=== PATIENT | male | born 1990 | race Caucasian/White ===

== ENCOUNTER 2017-01-16 22:48 | Inpatient (IN) | payer OTHER ==
[~2017-01-16] VITALS: Ht 147.3 cm; Wt 31.2 kg
[~2017-01-16 22:48] MED LIST: ALBU2.5V3 NEB; ALBU2.5V36 NEB; ASC500 GTB; FER325 PO; LAMO150T15 GTB; LANS30CA47 PO; NEOM28OI TOP; PHE30 PEG; PHEN60TA9 GTB; SAN30GM TOP; TOPI-44 GTB; TOPI25TA38 PEG; ZINC220C10 GTB
[2017-01-16 23:30] VITALS: BP 110/60; PULSE 67; RESP 19
[2017-01-17] MEDS ORDERED: ALBU2.5V3 NEB (00:20)
[2017-01-17] MEDS ORDERED: ACID1TAB14 G-TUBE (00:29)
[2017-01-17] MEDS ORDERED: LAMO100T83 GTB (00:29)
[2017-01-17] MEDS ORDERED: METO10TA96 GTB (00:29)
[2017-01-17] MEDS ORDERED: METOCLOPRAMIDE 10 MG TAB GTB PRN (00:30)
[2017-01-17] MEDS ORDERED: ALBUTEROL 0.083% (NEB) 2.5 MG/3 ML AMP NEB SCH (01:00)
[2017-01-17] MEDS: CEFTRIAXONE 1 GM/50 ML (PMX) 50 ML IVPB SCH (01:33)
[2017-01-17 01:54] VITALS: Ht 147.3 cm; Wt 31.2 kg
[2017-01-17 05:05] LABS: ADD SCAN DIFF NO
[2017-01-17 05:12] LABS: BASOPHIL # 0.1 10^3/ul (0.0-0.1); BASOPHILS % 1.2 % (0.0-2.0); EOSINOPHILS # 0.7 10^3/ul (0.0-0.5); EOSINOPHILS % 10.3 % (0.0-7.0); HEMATOCRIT 30.3 % (42.0-52.0); HEMOGLOBIN 9.4 g/dl (14.0-18.0); LYMPHOCYTES # 1.8 10^3/ul (0.8-2.9); LYMPHOCYTES % 25.6 % (15.0-51.0); MEAN CORPUSCULAR HEMOGLOBIN 28.3 pg (29.0-33.0); MEAN CORPUSCULAR VOLUME 91.3 fl (82.0-101.0); MEAN PLATELET VOLUME 9.6 fl (7.4-10.4); MONOCYTE # 0.8 10^3/ul (0.3-0.9); MONOCYTES % 11.4 % (0.0-11.0); NEUTROPHIL # 3.6 10^3/ul (1.6-7.5); NEUTROPHILS % 51.4 % (39.0-77.0); PLATELET COUNT 425 10^3/UL (140-415); RED BLOOD COUNT 3.32 10^6/ul (4.70-6.10); RED CELL DISTRIBUTION WIDTH 14.6 % (11.5-14.5); WHITE BLOOD COUNT 6.9 10^3/ul (4.8-10.8)
[2017-01-17 05:34] LABS: CALCIUM 8.8 mg/dl (8.4-10.2); CREATININE 0.31 mg/dl (0.61-1.24); POTASSIUM 3.9 mmol/L (3.5-5.1)
[2017-01-17] MEDS: LANSOPRAZOLE 30 MG CAP GTB SCH (05:36)
[2017-01-17] MEDS ORDERED: ALBUTEROL 0.083% (NEB) 2.5 MG/3 ML AMP NEB PRN (06:00)
[2017-01-17] MEDS ORDERED: LANSOPRAZOLE 30 MG CAP GTB SCH (06:00)
[2017-01-17 08:29] VITALS: BP 86/58; RESP 20
[2017-01-17] MEDS ORDERED: TOPIRAMATE 25 MG TAB GTB SCH (09:00)
[2017-01-17] MEDS ORDERED: FERROUS SULFATE (EC) 325 MG TAB PO SCH (09:00)
[2017-01-17] MEDS ORDERED: PHENOBARBITAL 97.2 MG GTB SCH (09:00)
[2017-01-17] MEDS: LAMOTRIGINE 100 MG TAB GTB SCH ×2 (09:46→21:01)
[2017-01-17] MEDS: ASCORBIC ACID 500 MG TAB GTB SCH (09:46)
[2017-01-17] MEDS: LAMOTRIGINE 25 MG TAB GTB SCH ×2 (09:46→21:01)
[2017-01-17] MEDS: TOPIRAMATE 25 MG TAB GTB SCH ×2 (09:47→22:22)
[2017-01-17] MEDS: PHENOBARBITAL 32.4 MG TAB PEG SCH ×2 (09:47→21:04)
[2017-01-17] MEDS: FERROUS SULFATE 60 MG/ML 5ML CUP GTB SCH ×2 (09:48→21:01)
[2017-01-17] MEDS: ZINC SULFATE 220 MG CAP GTB SCH (09:48)
[2017-01-17] MEDS: LACTOBACILLUS CHEW TAB PEG SCH (10:00)
--- NOTE | 2017-01-17 11:00 | HP ---
DATE OF ADMISSION: 01/16/2017 HISTORY OF PRESENT ILLNESS: Bro Escobedo is a 26-year-old male with mental retardation, who hims elf is unable to give any history, transferred from the transferring hospital. The patient noted to have multiple decubiti and was transferred here for wound care, antibiotics. The patient himself i s unable to give any detailed history, please review the old chart for detailed history. The patien t's laboratory data was reviewed. PAST MEDICAL HISTORY: Mental retardation, G-tube placement. The patient has history of seizure dis order, anemia, dyspepsia, malnutrition, multiple decubiti, epilepsy, pneumonia, asthma, cerebral pal sy, and history of debridement of the wound in the past. ALLERGIES: CANNOT BE OBTAINED. FAMILY HISTORY: Cannot be obtained. SOCIAL HISTORY: Cannot be obtained. MEDICATION HISTORY: The patient is on: 1. Albuterol. 2. Ascorbic acid. 3. Santyl. 4. Iron sulfate. 5. Lamictal. 6. Prevacid. 7. Reglan. 8. Neomycin. 9. Phenobarbital. 10. Probiotic. 11. Topamax. REVIEW OF SYSTEMS: Cannot be obtained. PHYSICAL EXAMINATION: GENERAL: The patient is awake, alert, not in any distress. VITAL SIGNS: Stable with pulse of 80, blood pressure 108/70. HEENT: Head is atraumatic, normocephalic. Pupils are equal, reactive. NECK: Supple. LUNGS: Clear. CARDIOVASCULAR: S1, S2 normal. ABDOMEN: G-tube in place. Abdomen is soft, nontender. EXTREMITIES: No cyanosis, clubbing, or edema. Contractions noted both upper and lower extremities. SKIN: The patient has multiple decubiti of the elbow and decubitus of the back. LABORATORY DATA: From the transferring hospital, WBC 11.3, hematocrit 31.6. The patient's platelet count is not available at this point. The patient's urinalysis: Yellow, cloudy, leukocyte esteras e negative, nitrite negative. Sodium 141, potassium 3.8, BUN 14, glucose 86, CO2 of 24, albumin 3.5 . IMPRESSION: The patient has: 1. Decubitus ulcer. 2. Sepsis. 3. G-tube placement. 4. Seizure disorder. 5. Anemia. 6. Cerebral palsy. 7. Incomplete database. PLAN: Continue home medications, wound care, antibiotics, G-tube feeding. The patient will have in fectious disease and surgical consultations. The patient's laboratory data will be monitored. Dictated By: WILIAM HERNANDEZ/CHRIS Conf#: [id number] DID#: [id number]
[2017-01-17] MEDS: NEOMYC/POLYMYX/BACIT 30 GM OINT TOP SCH ×2 (11:28→21:02)
[2017-01-17] MEDS: COLLAGENASE 30 GM TUBE TOP SCH (11:28)
--- NOTE | 2017-01-17 15:34 | CONS ---
DATE OF ADMISSION: 01/16/2017 DATE OF CONSULTATION: 01/17/2017 CONSULT TYPE: Surgical. REFERRING PHYSICIAN: Rey Amato MD CHIEF COMPLAINT: 1. Multiple decubitus ulcerations. 2. Anemia. 3. Cerebral palsy. HISTORY OF PRESENT ILLNESS: Bro Escobedo is a 26-year-old cerebral palsy patient with multiple m edical comorbidities and decubitus ulcerations at various stages. He was transferred from outside [facility] for further care and treatment secondary to insurance capitation. The patient is unable to give any information, it is all obtained from chart and staff. There are no reported fevers or chil ls. There is no cough or seizures. No blood per mouth or rectum. No vomiting. No bloating. No r ashes. His blood work showed normal chemistry. CBC, however, has anemia and thrombocytosis, but normal whit e blood cell count. PAST MEDICAL HISTORY: 1. Cerebral palsy. 2. Mental retardation. 3. Seizure and epilepsy history. 4. Chronic obstructive pulmonary disease. 5. Asthma. 6. Urinary incontinence. 7. Multiple decubitus ulcerations. 8. Anemia. 9. Thrombocytosis. 10. Dyspepsia. 11. Malnutrition. 12. Pneumonia history. PAST SURGICAL HISTORY: 1. PEG. 2. Debridements. MEDICATION: Noted. ALLERGIES: NONE NOTED. SOCIAL HISTORY: No current alcohol, drugs or tobacco. FAMILY HISTORY: Noncontributory. REVIEW OF SYSTEMS: A 12-point review of system per chart and staff negative unless addressed in the HPI. PHYSICAL EXAMINATION: VITAL SIGNS: Temperature 97.4, pulse 92, blood pressure 86/58, satting 97%. GENERAL: Noncommunicative, in no acute distress. HEENT: Pupils equal, reactive. No scleral icterus. Mucous membranes are moist. NECK: Baseline rigidity, no JVD. PULMONARY: Respiratory effort. No wheezing. HEART: S1, S2 present. ABDOMEN: Soft. PEG in place. EXTREMITIES: Contracted. VASCULAR: Capillary refill is 2 seconds. NEUROLOGIC: Does not follow commands. SKIN: No rashes. No jaundice. Multiple decubitus ulcerations of the right and left ischium, left elbow and sacrum at varying degrees. LYMPHATICS: No inguinal or cervical lymphadenopathy. LABORATORY AND RADIOGRAPHIC: As per chart and HPI. ASSESSMENT AND PLAN: Bro Escobedo is a 26-year-old male with multiple comorbidities. 1. Multiple decubitus ulcerations at varying stages continue offloading, nutritional optimization, vitamin C, local care, short term zinc and debridement as needed. 2. Hypotension of unknown etiology. Continue judicious fluid management, treatment of wounds and r ule out sources of infection. 3. Anemia without evidence of acute blood loss. Continue monitoring. 4. Thrombocytosis secondary to inflammatory process of his wounds, rule out other sources. Continu e monitoring. 5. Cerebral palsy, seizures, mental retardation continue medical optimization. 6. Dysphagia, on tube feeds. Thank you very much for consulting me in this patient's care. Dictated By: JASON LIND/CHRIS Conf#: [id number] DID#: [id number]
[2017-01-17 20:38] VITALS: BP 96/55; RESP 16
[2017-01-18] MEDS: CEFTRIAXONE 1 GM/50 ML (PMX) 50 ML IVPB SCH (00:12)
[2017-01-18] MEDS: LANSOPRAZOLE 30 MG CAP GTB SCH (05:41)
[2017-01-18 08:26] VITALS: BP 98/72; RESP 16
[2017-01-18] MEDS: LACTOBACILLUS CHEW TAB PEG SCH (09:10)
[2017-01-18] MEDS: ENOXAPARIN 30 MG/0.3 ML SYG SC SCH (09:10)
[2017-01-18] MEDS: ASCORBIC ACID 500 MG TAB GTB SCH (09:10)
[2017-01-18] MEDS: ZINC SULFATE 220 MG CAP GTB SCH (09:10)
[2017-01-18] MEDS: TOPIRAMATE 25 MG TAB GTB SCH ×2 (09:10→21:47)
[2017-01-18] MEDS: LAMOTRIGINE 25 MG TAB GTB SCH ×2 (09:11→21:47)
[2017-01-18] MEDS: FERROUS SULFATE 60 MG/ML 5ML CUP GTB SCH ×2 (09:11→21:46)
[2017-01-18] MEDS: LAMOTRIGINE 100 MG TAB GTB SCH ×2 (09:16→21:47)
[2017-01-18] MEDS: PHENOBARBITAL 32.4 MG TAB PEG SCH ×2 (09:16→21:47)
[2017-01-18] MEDS: COLLAGENASE 30 GM TUBE TOP SCH (09:23)
[2017-01-18] MEDS: NEOMYC/POLYMYX/BACIT 30 GM OINT TOP SCH ×2 (09:23→21:48)
[2017-01-18] MEDS ORDERED: VANCOMYCIN IV PER PHARMACY XX SCH (14:30)
--- NOTE | 2017-01-18 14:51 | PN ---
DATE: 01/18/2017 SUBJECTIVE: No acute changes. The patient is lying comfortably in bed. He is not communicative, b ut tracking with eyes. No fevers. No labs this morning. MICROBIOLOGY: Wound culture of the sacrum preliminary growing Staphylococcus aureus. ANTIMICROBIALS: The patient is on IV Rocephin. ALLERGIES: NONE TO ANTIBIOTICS. PHYSICAL EXAMINATION: GENERAL: This is a chronically ill-appearing, 26-year-old man with a history of cerebral palsy and mental retardation, who is lying comfortably in bed. HEENT: Head atraumatic, normocephalic. Sclerae anicteric. Buccal mucosa dry. NECK: Supple. CHEST: Rise symmetrical. Breath sounds diminished. HEART: S1, S2. ABDOMEN: Soft. Bowel sounds hyperactive. EXTREMITIES: Contractured skin with multiple decubiti. ASSESSMENT: 1. Multiple decubiti at various stages with wound culture of the sacrum growing Staphylococcus rachana us preliminary. 2. History of cerebral palsy and mental retardation. 3. Cachexia. 4. Anemia. 5. Dysphagia. PLAN: We are going to start IV vancomycin. Continue Rocephin. Await for wound cultures. Swab john es for MRSA. Follow surgical recommendations. Dictated By: MANUEL PARRA ELECTRICAL PRODUCTS ENGINEER for OTIS DOLL/NTS Conf#: [id number] DID#: [id number]
[2017-01-18] MEDS: VANCOMYCIN 500MG/NS (PMX) 100 ML IVPB SCH ×2 (16:57→23:58)
--- NOTE | 2017-01-18 17:15 | CONS ---
DATE OF ADMISSION: 01/16/2017 DATE OF CONSULTATION: 01/17/2017 TYPE OF CONSULTATION: Infectious Disease. REASON FOR CONSULTATION: Antibiotic management. HISTORY OF PRESENT ILLNESS: Bro Escobedo is a 26-year-old male with mental retardation, who was transferred to this hospital with multiple decubiti and for management of his wounds. His past prob lems include: 1. Mental retardation. 2. G-tube placement. 3. Seizure disorders. 4. Anemia. 5. Dyspepsia. 6. Malnutrition. 7. Multiple decubiti. 8. Epilepsy. 9. Pneumonia. 10. Asthma. 11. Cerebral palsy. 12. History of debridement of the wound in the past. Acutely, patient has a white count 11.3 on admission, hematocrit 31.6. His hemoglobin and hematocri t was 9.4 and 30.3. His BUN and creatinine was 10/0.31. His wound is growing Staphylococcus aureus . He has no methicillin-resistant Staphylococcus in his nares. Patient was seen in consultation by Dr. Ryder. Dr. Ryder notes the patient has developed multiple problems including cerebral pals y, mental retardation, seizures, epilepsy, so on and so forth. He has a PEG and multiple debridemen ts. PAST MEDICAL HISTORY: Operations as outlined. FAMILY HISTORY: Noncontributory. SOCIAL HISTORY: Does not smoke, drink or abuse drugs. ALLERGIES: NONE TO PENICILLIN, SULFA OR FOODS. MEDICATIONS: Per chart. REVIEW OF SYSTEMS: As per HPI. PHYSICAL EXAMINATION: GENERAL: The patient is a chronically ill-appearing male with cerebral palsy who is awake, noncommu nicative, in no acute distress. VITAL SIGNS: Stable. He is afebrile. SKIN: Without generalized rash. HEENT: Within normal limits. NECK: Supple. LYMPH NODES: None palpable. CHEST: Decreased breath sounds at the bases. HEART: Without murmur or gallop. ABDOMEN: Soft, nontender without organosplenomegaly or masses. G-tube in place. EXTREMITIES: Without cyanosis, clubbing or edema. RECTAL AND GENITAL: Deferred. NEUROLOGICAL: No focal neurological abnormalities. He has multiple decubitus ulcers on the right a nd left ischium and left elbow and sacrum at varying degrees. IMPRESSION AND PLAN: The patient has multiple comorbidities. He needs continued offloading nutriti onal optimization. He needs debridement . He is on vancomycin and a number of different topic al agents. He is also on ceftriaxone. We will continue him on this regimen. He is growing Staphyl ococcus aureus from his wounds. Continue current therapy. I will dictate my findings to Dr. Amato and to Dr. Yves Ryder. Dictated By: OTIS MENA MD, JD/CHRIS Conf#: [id number] DID#: [id number]
--- NOTE | 2017-01-18 17:29 | PN ---
Date/Time of Note Date/Time of Note DATE: 01/18/17 TIME: 17:28 Assessment/Plan VTE Prophylaxis VTE Prophylaxis Intervention: other Lines/Catheters IV C[facility] Type (from [facility] Saline Lock Assessment/Plan Chief Complaint/Hosp Course IMPRESSION: The patient has: 1. Decubitus ulcer. 2. Sepsis. 3. G-tube placement. 4. Seizure disorder. 5. Anemia. 6. Cerebral palsy. 7. Incomplete database. plan antibiotic wound care Problems: Subjective 24 Hr Interval Summary Cardiovascular: no complaints Gastrointestinal: no complaints Exam/Review of Systems Vital Signs Vitals Vital Signs Date Time Temp Pulse Resp B/P Pulse Ox O2 Delivery O2 Flow Rate FiO2 01/18/17 08:26 97.0 89 16 98/72 97 01/16/17 23:30 Room Air Intake and Output 01/17/17 01/17/17 01/18/17 15:00 23:00 07:00 Intake Total 910 ml Output Total 1400 ml Balance -490 ml Exam Respiratory: clear to auscultation Cardiovascular: regular rate and rhythm Gastrointestinal: bowel sounds (+), other (peg+), soft Musculoskeletal: nl extremities to inspection Results Result Diagram: 01/17/17 0452 01/17/17 0452 Medications Medications Current Medications Ascorbic Acid (Vitamin C) 1,000 mg DAILY GTB Last administered on 01/18/17 09: 10; Admin Dose 1,000 MG; Start 01/17/17 at 09:00 Collagenase (Santyl) 1 applic DAILY TOP Last administered on 01/18/17 09:23; Admin Dose 1 APPLIC; Start 01/17/17 at 09:00 Lactobacillus Acidoph/Bulgaricus (Floranex) 1 tab DAILY PEG Last administered on 01/18/17 09:10; Admin Dose 1 TAB; Start 01/17/17 at 09:00 Lamotrigine (Lamictal) 25 mg BID GTB Last administered on 01/18/17 09:11; Admin Dose 25 MG; Start 01/17/17 at 09:00 Lamotrigine (Lamictal) 150 mg BID GTB Last administered on 01/18/17 09:16; Admin Dose 150 MG; Start 01/17/17 at 09:00 Metoclopramide HCl (Reglan) 10 mg Q8 PRN GTB NAUSEA AND/OR VOMITING; Start 09/23 at 00:30 Neomycin/ Polymyxin/ Bacitracin (Neosporin Topical Oint) 1 applic BID TOP Last administered on 01/18/17 09:23; Admin Dose 1 APPLIC; Start 01/17/17 at 09:00 Phenobarbital (Luminal) 97.2 mg BID PEG Last administered on 01/18/17 09:16; Admin Dose 97.2 MG; Start 01/17/17 at 09:00 Zinc Sulfate (Zinc Sulfate) 220 mg DAILY GTB Last administered on 01/18/17 09: 10; Admin Dose 220 MG; Start 01/17/17 at 09:00 Lansoprazole (Prevacid) 30 mg DAILY@06 GTB Last administered on 01/18/17 05:41 ; Admin Dose 30 MG; Start 01/17/17 at 06:00 Topiramate (Topamax) 75 mg BID GTB Last administered on 01/18/17 09:10; Admin Dose 75 MG; Start 01/17/17 at 09:00 Ferrous Sulfate 300 mg 300 mg BID GTB Last administered on 01/18/17 09:11; Admin Dose 300 MG; Start 01/17/17 at 09:00 Ceftriaxone Sodium (Rocephin) 50 ml @ 100 mls/hr Q24H IVPB Last administered on 01/18/17 00:12; Admin Dose 100 MLS/HR; Start 01/17/17 at 01:00 Acetaminophen (Tylenol Liquid) 650 mg Q6H PRN GTB PAIN AND OR ELEVATED TEMP; Start 01/17/17 at 01:00 Enoxaparin Sodium 30 mg 30 mg DAILY SC Last administered on 01/18/17 09:10; Admin Dose 30 MG; Start 01/18/17 at 09:00 Vancomycin HCl (Vancocin) 100 ml @ 100 mls/hr Q8H IVPB Last administered on 16:57; Admin Dose 100 MLS/HR; Start 01/18/17 at 16:00 WILIAM VAZQUEZ MD Jan 18, 2017 17:29
[2017-01-18 19:58] VITALS: BP 89/52; RESP 18
--- NOTE | 2017-01-18 23:40 | PN ---
Date/Time of Note Date/Time of Note DATE: 01/18/17 TIME: 23:38 Assessment/Plan Lines/Catheters IV Catheter Type (from [facility]): Saline Lock Assessment/Plan Chief Complaint/Hosp Course 1. Multiple decubitus ulcerations at varying stages continue offloading, nutritional optimization, vitamin C, local care, short term zinc and debridement as needed. 2. Hypotension of unknown etiology. Continue judicious fluid management, treatment of wounds and rule out sources of infection. 3. Anemia without evidence of acute blood loss. Continue monitoring. 4. Thrombocytosis secondary to inflammatory process of his wounds, rule out other sources. Continue monitoring. 5. Cerebral palsy, seizures, mental retardation continue medical optimization. 6. Dysphagia, on tube feeds. Thank you Problems: Subjective 24 Hr Interval Summary No fever, chills, vomiting, bloating, jt swelling, rash, cough, sz. Bowel function. No pyuria. Exam/Review of Systems Vital Signs Vitals Vital Signs Date Time Temp Pulse Resp B/P Pulse Ox O2 Delivery O2 Flow Rate FiO2 01/18/17 19:58 97.7 57 18 89/52 98 01/16/17 23:30 Room Air Intake and Output 01/17/17 01/17/17 01/18/17 15:00 23:00 07:00 Intake Total 910 ml Output Total 1400 ml Balance -490 ml Exam Free Text/Dictation GENERAL: Noncommunicative, in no acute distress. HEENT: Pupils equal, reactive. No scleral icterus. Mucous membranes are moist. NECK: Baseline rigidity, no JVD. PULMONARY: Respiratory effort. No wheezing. HEART: S1, S2 present. ABDOMEN: Soft. PEG in place. EXTREMITIES: Contracted. VASCULAR: Capillary refill is 2 seconds. NEUROLOGIC: Does not follow commands. SKIN: No rashes. No jaundice. Multiple decubitus ulcerations of the right and left ischium, left elbow and sacrum at varying degrees. LYMPHATICS: No inguinal or cervical lymphadenopathy. Results Result Diagram: 01/17/17 0452 01/17/17 0452 JASON BENNETT MD Jan 18, 2017 23:39
[2017-01-19] MEDS: CEFTRIAXONE 1 GM/50 ML (PMX) 50 ML IVPB SCH (01:17)
[2017-01-19] MEDS: LANSOPRAZOLE 30 MG CAP GTB SCH (05:00)
[2017-01-19 05:54] LABS: CREATININE 0.43 mg/dl (0.61-1.24)
[2017-01-19 07:30] VITALS: BP 89/55; RESP 18
[2017-01-19 07:40] VITALS: BP 90/51; PULSE 87
[2017-01-19] MEDS: VANCOMYCIN 500MG/NS (PMX) 100 ML IVPB SCH ×2 (08:17→16:44)
[2017-01-19] MEDS: FERROUS SULFATE 60 MG/ML 5ML CUP GTB SCH ×2 (08:18→20:15)
[2017-01-19] MEDS: TOPIRAMATE 25 MG TAB GTB SCH ×2 (08:18→20:16)
[2017-01-19] MEDS: ZINC SULFATE 220 MG CAP GTB SCH (08:18)
[2017-01-19] MEDS: PHENOBARBITAL 32.4 MG TAB PEG SCH ×2 (08:18→20:16)
[2017-01-19] MEDS: ASCORBIC ACID 500 MG TAB GTB SCH (08:18)
[2017-01-19] MEDS: LAMOTRIGINE 25 MG TAB GTB SCH ×2 (08:18→20:15)
[2017-01-19] MEDS: LAMOTRIGINE 100 MG TAB GTB SCH ×2 (08:19→20:15)
[2017-01-19] MEDS: LACTOBACILLUS CHEW TAB PEG SCH (08:19)
[2017-01-19] MEDS: COLLAGENASE 30 GM TUBE TOP SCH (08:21)
[2017-01-19] MEDS: ENOXAPARIN 30 MG/0.3 ML SYG SC SCH (08:21)
[2017-01-19] MEDS: NEOMYC/POLYMYX/BACIT 30 GM OINT TOP SCH ×2 (08:21→20:17)
--- NOTE | 2017-01-19 15:03 | PN ---
Date/Time of Note Date/Time of Note DATE: 01/19/17 TIME: 15:01 Assessment/Plan VTE Prophylaxis VTE Prophylaxis Intervention: other Lines/Catheters IV Catheter Type (from [facility]): Saline Lock Assessment/Plan Chief Complaint/Hosp Course IMPRESSION: The patient has: 1. Decubitus ulcer. 2. Sepsis. 3. G-tube placement. 4. Seizure disorder. 5. Anemia. 6. Cerebral palsy. 7. Incomplete database. 8 mssa plan antibiotic wound care per id Problems: Subjective 24 Hr Interval Summary Cardiovascular: no complaints Gastrointestinal: no complaints Exam/Review of Systems Vital Signs Vitals Vital Signs Date Time Temp Pulse Resp B/P Pulse Ox O2 Delivery O2 Flow Rate FiO2 01/19/17 07:40 87 90/51 01/19/17 07:30 97.1 18 98 01/16/17 23:30 Room Air Intake and Output 01/18/17 01/18/17 01/19/17 15:00 23:00 07:00 Intake Total 800 ml 724 ml Output Total 1000 ml Balance -200 ml 724 ml Exam Cardiovascular: regular rate and rhythm Gastrointestinal: soft Genitourinary - Male: nl penis Musculoskeletal: nl extremities to inspection Extremities: normal pulses Results Result Diagram: 01/17/17 0452 01/19/17 0515 Results 24 hrs Laboratory Tests Test 01/19/17 05:15 Blood Urea Nitrogen 14 Creatinine 0.43 L Medications Medications Current Medications Ascorbic Acid (Vitamin C) 1,000 mg DAILY GTB Last administered on 01/19/17 08: 18; Admin Dose 1,000 MG; Start 01/17/17 at 09:00 Collagenase (Santyl) 1 applic DAILY TOP Last administered on 01/19/17 08:21; Admin Dose 1 APPLIC; Start 01/17/17 at 09:00 Lactobacillus Acidoph/Bulgaricus (Floranex) 1 tab DAILY PEG Last administered on 01/19/17 08:19; Admin Dose 1 TAB; Start 01/17/17 at 09:00 Lamotrigine (Lamictal) 25 mg BID GTB Last administered on 01/19/17 08:18; Admin Dose 25 MG; Start 01/17/17 at 09:00 Lamotrigine (Lamictal) 150 mg BID GTB Last administered on 01/19/17 08:19; Admin Dose 150 MG; Start 01/17/17 at 09:00 Metoclopramide HCl (Reglan) 10 mg Q8 PRN GTB NAUSEA AND/OR VOMITING; Start 09/23 at 00:30 Neomycin/ Polymyxin/ Bacitracin (Neosporin Topical Oint) 1 applic BID TOP Last administered on 01/19/17 08:21; Admin Dose 1 APPLIC; Start 01/17/17 at 09:00 Phenobarbital (Luminal) 97.2 mg BID PEG Last administered on 01/19/17 08:18; Admin Dose 97.2 MG; Start 01/17/17 at 09:00 Zinc Sulfate (Zinc Sulfate) 220 mg DAILY GTB Last administered on 01/19/17 08: 18; Admin Dose 220 MG; Start 01/17/17 at 09:00 Lansoprazole (Prevacid) 30 mg DAILY@06 GTB Last administered on 01/19/17 05:00 ; Admin Dose 30 MG; Start 01/17/17 at 06:00 Topiramate (Topamax) 75 mg BID GTB Last administered on 01/19/17 08:18; Admin Dose 75 MG; Start 01/17/17 at 09:00 Ferrous Sulfate 300 mg 300 mg BID GTB Last administered on 01/19/17 08:18; Admin Dose 300 MG; Start 01/17/17 at 09:00 Ceftriaxone Sodium (Rocephin) 50 ml @ 100 mls/hr Q24H IVPB Last administered on 01/19/17 01:17; Admin Dose 100 MLS/HR; Start 01/17/17 at 01:00 Acetaminophen (Tylenol Liquid) 650 mg Q6H PRN GTB PAIN AND OR ELEVATED TEMP; Start 01/17/17 at 01:00 Enoxaparin Sodium 30 mg 30 mg DAILY SC Last administered on 01/19/17 08:21; Admin Dose 30 MG; Start 01/18/17 at 09:00 Vancomycin HCl (Vancocin) 100 ml @ 100 mls/hr Q8H IVPB Last administered on 08:17; Admin Dose 100 MLS/HR; Start 01/18/17 at 16:00 Miscellaneous Information (*Rx Drug Level Order Reminder*) 1 ONCE ONCE XX ; Start 01/19/17 at 15:00; Stop 01/19/17 at 15:01 WILIAM VAZQUEZ MD Jan 19, 2017 15:03
--- NOTE | 2017-01-19 16:06 | PN ---
DATE: 01/19/2017 SUBJECTIVE: No acute changes. The patient is lying comfortably in bed. No fevers. No labs. MICROBIOLOGY: Wound culture growing oxacillin-sensitive Staphylococcus aureus susceptible to Levaqu in, clindamycin, Ancef, Cipro. INDWELLINGS: PEG and trach. PHYSICAL EXAMINATION: GENERAL: Chronically ill-appearing, young debilitated man, who is lying comfortably in bed. HEENT: Head atraumatic, normocephalic. Sclerae anicteric. Buccal mucosa dry. NECK: Supple. CHEST: Rise symmetrical. Breath sounds diminished to bases. HEART: S1, S2. ABDOMEN: Soft, bowel sounds present. EXTREMITIES: Without cyanosis. Contractures. SKIN: With multiple decubiti. ASSESSMENT: 1. Oxacillin-sensitive Staphylococcus aureus sacral wound. 2. Cachexia. 3. Anemia. 4. Dysphagia. 5. History of cerebral palsy and mental retardation. PLAN: We are going to change antibiotics to oral ciprofloxacin. Continue local wound care. Follow surgical recommendations. Dictated By: MANUEL PARRA SENIOR FACILITIES MANAGER for OTIS DOLL/CHRIS Conf#: [id number] DID#: [id number]
[2017-01-19] MEDS: CIPROFLOXACIN 500 MG TAB PO SCH (17:02)
[2017-01-19 20:10] VITALS: BP 96/54; RESP 18
--- NOTE | 2017-01-19 22:32 | PN ---
Date/Time of Note Date/Time of Note DATE: 01/19/17 TIME: 22:29 Assessment/Plan Lines/Catheters IV Catheter Type (from [facility]): Saline Lock Irvin in Place (from [facility]): No Assessment/Plan Chief Complaint/Hosp Course 1. Multiple decubitus ulcerations at varying stages continue offloading, nutritional optimization, vitamin C, local care, short term zinc and debridement as needed. 2. Hypotension of unknown etiology. Continue judicious fluid management, treatment of wounds and rule out sources of infection. 3. Anemia without evidence of acute blood loss. Continue monitoring. 4. Thrombocytosis secondary to inflammatory process of his wounds, rule out other sources. Continue monitoring. 5. Cerebral palsy, seizures, mental retardation continue medical optimization. 6. Dysphagia, on tube feeds. Thank you Problems: Subjective 24 Hr Interval Summary No fever, chills, vomiting, bloating, jt swelling, rash, cough, sz. Bowel function. No pyuria. Exam/Review of Systems Vital Signs Vitals Vital Signs Date Time Temp Pulse Resp B/P Pulse Ox O2 Delivery O2 Flow Rate FiO2 01/19/17 20:10 97.7 102 18 96/54 97 01/16/17 23:30 Room Air Intake and Output 01/18/17 01/18/17 01/19/17 15:00 23:00 07:00 Intake Total 800 ml 724 ml Output Total 1000 ml Balance -200 ml 724 ml Exam Free Text/Dictation GENERAL: Noncommunicative, in no acute distress. HEENT: Pupils equal, reactive. No scleral icterus. Mucous membranes are moist. NECK: Baseline rigidity, no JVD. PULMONARY: Respiratory effort. No wheezing. HEART: S1, S2 present. ABDOMEN: Soft. PEG in place. EXTREMITIES: Contracted. VASCULAR: Capillary refill is 2 seconds. NEUROLOGIC: Does not follow commands. SKIN: No rashes. No jaundice. Multiple decubitus ulcerations of the right and left ischium, left elbow and sacrum at varying degrees. LYMPHATICS: No inguinal or cervical lymphadenopathy. Results Result Diagram: 01/17/17 0452 01/19/17 0515 JASON BENNETT MD Jan 19, 2017 22:32
[2017-01-20] MEDS: CIPROFLOXACIN 500 MG TAB PO SCH ×2 (05:44→17:01)
[2017-01-20] MEDS: LANSOPRAZOLE 30 MG CAP GTB SCH (05:44)
[2017-01-20 07:30] VITALS: BP 97/55; RESP 18
[2017-01-20] MEDS: LAMOTRIGINE 25 MG TAB GTB SCH ×2 (08:19→20:20)
[2017-01-20] MEDS: FERROUS SULFATE 60 MG/ML 5ML CUP GTB SCH ×2 (08:19→20:19)
[2017-01-20] MEDS: ENOXAPARIN 30 MG/0.3 ML SYG SC SCH (08:20)
[2017-01-20] MEDS: LAMOTRIGINE 100 MG TAB GTB SCH ×2 (08:21→20:20)
[2017-01-20] MEDS: ZINC SULFATE 220 MG CAP GTB SCH (08:21)
[2017-01-20] MEDS: TOPIRAMATE 25 MG TAB GTB SCH ×2 (08:21→20:21)
[2017-01-20] MEDS: LACTOBACILLUS CHEW TAB PEG SCH (08:21)
[2017-01-20] MEDS: PHENOBARBITAL 32.4 MG TAB PEG SCH ×2 (08:21→20:22)
[2017-01-20] MEDS: ASCORBIC ACID 500 MG TAB GTB SCH (08:21)
[2017-01-20] MEDS: NEOMYC/POLYMYX/BACIT 30 GM OINT TOP SCH ×2 (08:22→20:22)
[2017-01-20] MEDS: COLLAGENASE 30 GM TUBE TOP SCH (08:22)
--- NOTE | 2017-01-20 16:27 | PN ---
Date/Time of Note Date/Time of Note DATE: 01/20/17 TIME: 16:27 Assessment/Plan Lines/Catheters IV Catheter Type (from [email or web address] Saline Lock Irvin in Place (from [facility] [[email or web address] No Assessment/Plan Chief Complaint/Hosp Course 1. Multiple decubitus ulcerations at varying stages continue offloading, nutritional optimization, vitamin C, local care, short term zinc and debridement as needed. 2. Hypotension of unknown etiology. Continue judicious fluid management, treatment of wounds and rule out sources of infection. 3. Anemia without evidence of acute blood loss. Continue monitoring. 4. Thrombocytosis secondary to inflammatory process of his wounds, rule out other sources. Continue monitoring. 5. Cerebral palsy, seizures, mental retardation continue medical optimization. 6. Dysphagia, on tube feeds. Thank you Problems: Subjective 24 Hr Interval Summary No fever, chills, vomiting, bloating, jt swelling, rash, cough, sz. Bowel function. No pyuria. Exam/Review of Systems Vital Signs Vitals Vital Signs Date Time Temp Pulse Resp B/P Pulse Ox O2 Delivery O2 Flow Rate FiO2 01/20/17 07:30 98.2 84 18 97/55 98 01/16/17 23:30 Room Air Intake and Output 01/19/17 01/19/17 01/20/17 15:00 23:00 07:00 Intake Total 100 ml 850 ml 850 ml Output Total 800 ml 600 ml Balance 100 ml 50 ml 250 ml Exam Free Text/Dictation GENERAL: Noncommunicative, in no acute distress. HEENT: Pupils equal, reactive. No scleral icterus. Mucous membranes are moist. NECK: Baseline rigidity, no JVD. PULMONARY: Respiratory effort. No wheezing. HEART: S1, S2 present. ABDOMEN: Soft. PEG in place. EXTREMITIES: Contracted. VASCULAR: Capillary refill is 2 seconds. NEUROLOGIC: Does not follow commands. SKIN: No rashes. No jaundice. Multiple decubitus ulcerations of the right and left ischium, left elbow and sacrum at varying degrees. LYMPHATICS: No inguinal or cervical lymphadenopathy. Results Result Diagram: 01/17/17 0452 01/19/17 0515 JASON BENNETT MD Jan 20, 2017 16:27
--- NOTE | 2017-01-20 17:11 | PN ---
Date/Time of Note Date/Time of Note DATE: 01/20/17 TIME: 17:11 Assessment/Plan VTE Prophylaxis VTE Prophylaxis Intervention: other Lines/Catheters [facility] Saline Lock Urinary Cath still in place: No Assessment/Plan Chief Complaint/Hosp Course IMPRESSION: The patient has: 1. Decubitus ulcer. 2. Sepsis. 3. G-tube placement. 4. Seizure disorder. 5. Anemia. 6. Cerebral palsy. 7. Incomplete database. 8 mssa plan antibiotic wound care per id Problems: Subjective 24 Hr Interval Summary Constitutional: no complaints Exam/Review of Systems Vital Signs Vitals Vital Signs Date Time Temp Pulse Resp B/P Pulse Ox O2 Delivery O2 Flow Rate FiO2 01/20/17 07:30 98.2 84 18 97/55 98 01/16/17 23:30 Room Air Intake and Output 01/19/17 01/19/17 01/20/17 15:00 23:00 07:00 Intake Total 100 ml 850 ml 850 ml Output Total 800 ml 600 ml Balance 100 ml 50 ml 250 ml Exam Neck: supple Respiratory: clear to auscultation Cardiovascular: regular rate and rhythm Gastrointestinal: soft Musculoskeletal: nl extremities to inspection Results Result Diagram: 01/17/17 0452 01/19/17 0515 Medications Medications Current Medications Ascorbic Acid (Vitamin C) 1,000 mg DAILY GTB Last administered on 01/20/17 08: 21; Admin Dose 1,000 MG; Start 01/17/17 at 09:00 Collagenase (Santyl) 1 applic DAILY TOP Last administered on 01/20/17 08:22; Admin Dose 1 APPLIC; Start 01/17/17 at 09:00 Lactobacillus Acidoph/Bulgaricus (Floranex) 1 tab DAILY PEG Last administered on 01/20/17 08:21; Admin Dose 1 TAB; Start 01/17/17 at 09:00 Lamotrigine (Lamictal) 25 mg BID GTB Last administered on 01/20/17 08:19; Admin Dose 25 MG; Start 01/17/17 at 09:00 Lamotrigine (Lamictal) 150 mg BID GTB Last administered on 01/20/17 08:21; Admin Dose 150 MG; Start 01/17/17 at 09:00 Metoclopramide HCl (Reglan) 10 mg Q8 PRN GTB NAUSEA AND/OR VOMITING; Start 09/23 at 00:30 Neomycin/ Polymyxin/ Bacitracin (Neosporin Topical Oint) 1 applic BID TOP Last administered on 01/20/17 08:22; Admin Dose 1 APPLIC; Start 01/17/17 at 09:00 Phenobarbital (Luminal) 97.2 mg BID PEG Last administered on 01/20/17 08:21; Admin Dose 97.2 MG; Start 01/17/17 at 09:00 Zinc Sulfate (Zinc Sulfate) 220 mg DAILY GTB Last administered on 01/20/17 08: 21; Admin Dose 220 MG; Start 01/17/17 at 09:00 Lansoprazole (Prevacid) 30 mg DAILY@06 GTB Last administered on 01/20/17 05:44 ; Admin Dose 30 MG; Start 01/17/17 at 06:00 Topiramate (Topamax) 75 mg BID GTB Last administered on 01/20/17 08:21; Admin Dose 75 MG; Start 01/17/17 at 09:00 Ferrous Sulfate (Feosol Liquid Cup) 300 mg BID GTB Last administered on 08:19; Admin Dose 300 MG; Start 01/17/17 at 09:00 Acetaminophen (Tylenol Liquid) 650 mg Q6H PRN GTB PAIN AND OR ELEVATED TEMP; Start 01/17/17 at 01:00 Enoxaparin Sodium (Lovenox) 30 mg DAILY SC Last administered on 01/20/17 08:20 ; Admin Dose 30 MG; Start 01/18/17 at 09:00 Ciprofloxacin (Cipro) 500 mg BID@,18 PO Last administered on 01/20/17 17:01 ; Admin Dose 500 MG; Start 01/19/17 at 18:00 WILIAM VAZQUEZ MD Jan 20, 2017 17:11
[2017-01-20 19:30] VITALS: BP 103/57; RESP 16
[2017-01-20 20:00] VITALS: BP 103/57; PULSE 81; RESP 18
--- NOTE | 2017-01-20 20:29 | CONS ---
Date/Time of Note Date/Time of Note DATE: 01/20/17 TIME: 20:28 Assessment/Plan Assessment/Plan Chief Complaint/Hosp Course SUBJECTIVE: No acute changes. The patient is lying comfortably in bed. No fevers. MICROBIOLOGY: Wound culture growing oxacillin-sensitive Staphylococcus aureus susceptible to Levaquin, clindamycin, Ancef, Cipro. INDWELLINGS: PEG and trach. PHYSICAL EXAMINATION: GENERAL: Chronically ill-appearing, young debilitated man, who is lying comfortably in bed. HEENT: Head atraumatic, normocephalic. Sclerae anicteric. Buccal mucosa dry. NECK: Supple. CHEST: Rise symmetrical. Breath sounds diminished to bases. HEART: S1, S2. ABDOMEN: Soft, bowel sounds present. EXTREMITIES: Without cyanosis. Contractures. SKIN: With multiple decubiti. ASSESSMENT: 1. Oxacillin-sensitive Staphylococcus aureus sacral wound. 2. Cachexia. 3. Anemia. 4. Dysphagia. 5. History of cerebral palsy and mental retardation. PLAN: Stable, continue oral ciprofloxacin. Continue local wound care. Follow surgical recommendations, off load. DW staff Problems: Consultation Date/Type/Reason Admit Date/Time Jan 16, 2017 at 23:35 Initial Consult Date Type of Consultation: ID Exam/Review of Systems Vital Signs Vitals Vital Signs Date Time Temp Pulse Resp B/P Pulse Ox O2 Delivery O2 Flow Rate FiO2 01/20/17 19:30 98.4 81 16 103/57 97 01/16/17 23:30 Room Air Intake and Output 01/19/17 01/19/17 01/20/17 15:00 23:00 07:00 Intake Total 100 ml 850 ml 850 ml Output Total 800 ml 600 ml Balance 100 ml 50 ml 250 ml Results Result Diagram: 01/17/17 0452 01/19/17 0515 Medications Medications Current Medications Ascorbic Acid (Vitamin C) 1,000 mg DAILY GTB Last administered on 01/20/17 08: 21; Admin Dose 1,000 MG; Start 01/17/17 at 09:00 Collagenase (Santyl) 1 applic DAILY TOP Last administered on 01/20/17 08:22; Admin Dose 1 APPLIC; Start 01/17/17 at 09:00 Lactobacillus Acidoph/Bulgaricus (Floranex) 1 tab DAILY PEG Last administered on 01/20/17 08:21; Admin Dose 1 TAB; Start 01/17/17 at 09:00 Lamotrigine (Lamictal) 25 mg BID GTB Last administered on 01/20/17 20:20; Admin Dose 25 MG; Start 01/17/17 at 09:00 Lamotrigine (Lamictal) 150 mg BID GTB Last administered on 01/20/17 20:20; Admin Dose 150 MG; Start 01/17/17 at 09:00 Metoclopramide HCl (Reglan) 10 mg Q8 PRN GTB NAUSEA AND/OR VOMITING; Start 09/23 at 00:30 Neomycin/ Polymyxin/ Bacitracin (Neosporin Topical Oint) 1 applic BID TOP Last administered on 01/20/17 20:22; Admin Dose 1 APPLIC; Start 01/17/17 at 09:00 Phenobarbital (Luminal) 97.2 mg BID PEG Last administered on 01/20/17 20:22; Admin Dose 97.2 MG; Start 01/17/17 at 09:00 Zinc Sulfate (Zinc Sulfate) 220 mg DAILY GTB Last administered on 01/20/17 08: 21; Admin Dose 220 MG; Start 01/17/17 at 09:00 Lansoprazole (Prevacid) 30 mg DAILY@06 GTB Last administered on 01/20/17 05:44 ; Admin Dose 30 MG; Start 01/17/17 at 06:00 Topiramate (Topamax) 75 mg BID GTB Last administered on 01/20/17 20:21; Admin Dose 75 MG; Start 01/17/17 at 09:00 Ferrous Sulfate (Feosol Liquid Cup) 300 mg BID GTB Last administered on 20:19; Admin Dose 300 MG; Start 01/17/17 at 09:00 Acetaminophen (Tylenol Liquid) 650 mg Q6H PRN GTB PAIN AND OR ELEVATED TEMP; Start 01/17/17 at 01:00 Enoxaparin Sodium (Lovenox) 30 mg DAILY SC Last administered on 01/20/17 08:20 ; Admin Dose 30 MG; Start 01/18/17 at 09:00 Ciprofloxacin (Cipro) 500 mg BID@06,18 PO Last administered on 01/20/17 17:01 ; Admin Dose 500 MG; Start 01/19/17 at 18:00 MANUEL PARRA NP Jan 20, 2017 20:29
[2017-01-21] MEDS: LANSOPRAZOLE 30 MG CAP GTB SCH (05:38)
[2017-01-21] MEDS: CIPROFLOXACIN 500 MG TAB PO SCH ×2 (05:39→18:00)
[2017-01-21 07:30] VITALS: BP 90/52; RESP 18
[2017-01-21] MEDS: ENOXAPARIN 30 MG/0.3 ML SYG SC SCH (09:19)
[2017-01-21] MEDS: PHENOBARBITAL 32.4 MG TAB PEG SCH ×2 (09:20→21:51)
[2017-01-21] MEDS: TOPIRAMATE 25 MG TAB GTB SCH ×2 (09:20→21:51)
[2017-01-21] MEDS: ASCORBIC ACID 500 MG TAB GTB SCH (09:20)
[2017-01-21] MEDS: LAMOTRIGINE 25 MG TAB GTB SCH ×2 (09:21→21:51)
[2017-01-21] MEDS: LACTOBACILLUS CHEW TAB PEG SCH (09:21)
[2017-01-21] MEDS: ZINC SULFATE 220 MG CAP GTB SCH (09:21)
[2017-01-21] MEDS: LAMOTRIGINE 100 MG TAB GTB SCH ×2 (09:21→22:09)
[2017-01-21] MEDS: FERROUS SULFATE 60 MG/ML 5ML CUP GTB SCH ×2 (09:21→21:50)
[2017-01-21] MEDS: COLLAGENASE 30 GM TUBE TOP SCH (09:22)
[2017-01-21] MEDS: NEOMYC/POLYMYX/BACIT 30 GM OINT TOP SCH ×2 (09:22→21:53)
--- NOTE | 2017-01-21 14:15 | PN ---
Date/Time of Note Date/Time of Note DATE: 01/21/17 TIME: 14:14 Assessment/Plan VTE Prophylaxis VTE Prophylaxis Intervention: other Lines/Catheters IV C[facility] Type (from [facility] Saline Lock Urinary Cath still in place: No Assessment/Plan Chief Complaint/Hosp Course IMPRESSION: The patient has: 1. Decubitus ulcer. 2. Sepsis. 3. G-tube placement. 4. Seizure disorder. 5. Anemia. 6. Cerebral palsy. 7. Incomplete database. 8 mssa plan antibiotic wound care per id home soon Problems: Subjective 24 Hr Interval Summary Gastrointestinal: no complaints Exam/Review of Systems Vital Signs Vitals Vital Signs Date Time Temp Pulse Resp B/P Pulse Ox O2 Delivery O2 Flow Rate FiO2 01/21/17 07:30 98.5 93 18 90/52 98 01/20/17 20:00 Room Air Intake and Output 01/20/17 01/20/17 01/21/17 15:00 23:00 07:00 Intake Total 750 ml 1500 ml Output Total 500 ml 2200 ml Balance 250 ml -700 ml Exam Respiratory: clear to auscultation Cardiovascular: regular rate and rhythm Gastrointestinal: soft Musculoskeletal: nl extremities to inspection Extremities: normal pulses Results Result Diagram: 01/17/17 0452 01/19/17 0515 Medications Medications Current Medications Ascorbic Acid (Vitamin C) 1,000 mg DAILY GTB Last administered on 01/21/17 09: 20; Admin Dose 1,000 MG; Start 01/17/17 at 09:00 Collagenase (Santyl) 1 applic DAILY TOP Last administered on 01/21/17 09:22; Admin Dose 1 APPLIC; Start 01/17/17 at 09:00 Lactobacillus Acidoph/Bulgaricus (Floranex) 1 tab DAILY PEG Last administered on 01/21/17 09:21; Admin Dose 1 TAB; Start 01/17/17 at 09:00 Lamotrigine (Lamictal) 25 mg BID GTB Last administered on 01/21/17 09:21; Admin Dose 25 MG; Start 01/17/17 at 09:00 Lamotrigine (Lamictal) 150 mg BID GTB Last administered on 01/21/17 09:21; Admin Dose 150 MG; Start 01/17/17 at 09:00 Metoclopramide HCl (Reglan) 10 mg Q8 PRN GTB NAUSEA AND/OR VOMITING; Start 09/23 at 00:30 Neomycin/ Polymyxin/ Bacitracin (Neosporin Topical Oint) 1 applic BID TOP Last administered on 01/21/17 09:22; Admin Dose 1 APPLIC; Start 01/17/17 at 09:00 Phenobarbital (Luminal) 97.2 mg BID PEG Last administered on 01/21/17 09:20; Admin Dose 97.2 MG; Start 01/17/17 at 09:00 Zinc Sulfate (Zinc Sulfate) 220 mg DAILY GTB Last administered on 01/21/17 09: 21; Admin Dose 220 MG; Start 01/17/17 at 09:00 Lansoprazole (Prevacid) 30 mg DAILY@06 GTB Last administered on 01/21/17 05:38 ; Admin Dose 30 MG; Start 01/17/17 at 06:00 Topiramate (Topamax) 75 mg BID GTB Last administered on 01/21/17 09:20; Admin Dose 75 MG; Start 01/17/17 at 09:00 Ferrous Sulfate (Feosol Liquid Cup) 300 mg BID GTB Last administered on 09:21; Admin Dose 300 MG; Start 01/17/17 at 09:00 Acetaminophen (Tylenol Liquid) 650 mg Q6H PRN GTB PAIN AND OR ELEVATED TEMP; Start 01/17/17 at 01:00 Enoxaparin Sodium (Lovenox) 30 mg DAILY SC Last administered on 01/21/17 09:19 ; Admin Dose 30 MG; Start 01/18/17 at 09:00 Ciprofloxacin (Cipro) 500 mg BID@,18 PO Last administered on 01/21/17 05:39 ; Admin Dose 500 MG; Start 01/19/17 at 18:00 WILIAM VAZQUEZ MD Jan 21, 2017 14:15
[2017-01-21 19:29] VITALS: BP 100/55; RESP 16
[2017-01-21 20:00] VITALS: BP 100/55; PULSE 74; RESP 16
--- NOTE | 2017-01-21 20:27 | CONS ---
Date/Time of Note Date/Time of Note DATE: 01/21/17 TIME: 20:26 Assessment/Plan Assessment/Plan Chief Complaint/Hosp Course SUBJECTIVE: No acute changes. The patient is awake, noncommunicative, lying comfortably in bed. No fevers. MICROBIOLOGY: Wound culture growing oxacillin-sensitive Staphylococcus aureus susceptible to Levaquin, clindamycin, Ancef, Cipro. INDWELLINGS: PEG and trach. PHYSICAL EXAMINATION: GENERAL: Chronically ill-appearing, young debilitated man, who is lying comfortably in bed. HEENT: Head atraumatic, normocephalic. Sclerae anicteric. Buccal mucosa dry. NECK: Supple. CHEST: Rise symmetrical. Breath sounds diminished to bases. HEART: S1, S2. ABDOMEN: Soft, bowel sounds present. EXTREMITIES: Without cyanosis. Contractures. SKIN: With multiple decubiti. ASSESSMENT: 1. Oxacillin-sensitive Staphylococcus aureus sacral wound. 2. Cachexia. 3. Anemia. 4. Dysphagia. 5. History of cerebral palsy and mental retardation. PLAN: Stable, continue abx, local wound care. Follow surgical recommendations , off load. DW staff Problems: Consultation Date/Type/Reason Admit Date/Time Jan 16, 2017 at 23:35 Type of Consultation: ID Exam/Review of Systems Vital Signs Vitals Vital Signs Date Time Temp Pulse Resp B/P Pulse Ox O2 Delivery O2 Flow Rate FiO2 01/21/17 07:30 98.5 93 18 90/52 98 01/20/17 20:00 Room Air Intake and Output 01/20/17 01/20/17 01/21/17 15:00 23:00 07:00 Intake Total 750 ml 1500 ml Output Total 500 ml 2200 ml Balance 250 ml -700 ml Results Result Diagram: 01/17/17 0452 01/19/17 0515 Medications Medications Current Medications Ascorbic Acid (Vitamin C) 1,000 mg DAILY GTB Last administered on 01/21/17 09: 20; Admin Dose 1,000 MG; Start 01/17/17 at 09:00 Collagenase (Santyl) 1 applic DAILY TOP Last administered on 01/21/17 09:22; Admin Dose 1 APPLIC; Start 01/17/17 at 09:00 Lactobacillus Acidoph/Bulgaricus (Floranex) 1 tab DAILY PEG Last administered on 01/21/17 09:21; Admin Dose 1 TAB; Start 01/17/17 at 09:00 Lamotrigine (Lamictal) 25 mg BID GTB Last administered on 01/21/17 09:21; Admin Dose 25 MG; Start 01/17/17 at 09:00 Lamotrigine (Lamictal) 150 mg BID GTB Last administered on 01/21/17 09:21; Admin Dose 150 MG; Start 01/17/17 at 09:00 Metoclopramide HCl (Reglan) 10 mg Q8 PRN GTB NAUSEA AND/OR VOMITING; Start 09/23 at 00:30 Neomycin/ Polymyxin/ Bacitracin (Neosporin Topical Oint) 1 applic BID TOP Last administered on 01/21/17 09:22; Admin Dose 1 APPLIC; Start 01/17/17 at 09:00 Phenobarbital (Luminal) 97.2 mg BID PEG Last administered on 01/21/17 09:20; Admin Dose 97.2 MG; Start 01/17/17 at 09:00 Zinc Sulfate (Zinc Sulfate) 220 mg DAILY GTB Last administered on 01/21/17 09: 21; Admin Dose 220 MG; Start 01/17/17 at 09:00 Lansoprazole (Prevacid) 30 mg DAILY@06 GTB Last administered on 01/21/17 05:38 ; Admin Dose 30 MG; Start 01/17/17 at 06:00 Topiramate (Topamax) 75 mg BID GTB Last administered on 01/21/17 09:20; Admin Dose 75 MG; Start 01/17/17 at 09:00 Ferrous Sulfate (Feosol Liquid Cup) 300 mg BID GTB Last administered on 09:21; Admin Dose 300 MG; Start 01/17/17 at 09:00 Acetaminophen (Tylenol Liquid) 650 mg Q6H PRN GTB PAIN AND OR ELEVATED TEMP; Start 01/17/17 at 01:00 Enoxaparin Sodium (Lovenox) 30 mg DAILY SC Last administered on 01/21/17 09:19 ; Admin Dose 30 MG; Start 01/18/17 at 09:00 Ciprofloxacin (Cipro) 500 mg BID@06,18 PO Last administered on 01/21/17 18:00 ; Admin Dose 500 MG; Start 01/19/17 at 18:00 MANUEL PARRA NP Jan 21, 2017 20:27
--- NOTE | 2017-01-21 22:05 | PN ---
Date/Time of Note Date/Time of Note DATE: 01/21/17 TIME: 22:04 Assessment/Plan Lines/Catheters IV Catheter Type (from [facility]): Saline Lock Irvin in Place (from [facility]): No Assessment/Plan Chief Complaint/Hosp Course 1. Multiple decubitus ulcerations at varying stages continue offloading, nutritional optimization, vitamin C, local care, short term zinc and debridement as needed. 2. Hypotension of unknown etiology. Continue judicious fluid management, treatment of wounds and rule out sources of infection. 3. Anemia without evidence of acute blood loss. Continue monitoring. 4. Thrombocytosis secondary to inflammatory process of his wounds, rule out other sources. Continue monitoring. 5. Cerebral palsy, seizures, mental retardation continue medical optimization. 6. Dysphagia, on tube feeds. Thank you Problems: Subjective 24 Hr Interval Summary No fever, chills, vomiting, bloating, jt swelling, rash, cough, sz. Bowel function. No pyuria. Exam/Review of Systems Vital Signs Vitals Vital Signs Date Time Temp Pulse Resp B/P Pulse Ox O2 Delivery O2 Flow Rate FiO2 01/21/17 19:29 98.1 74 16 100/55 97 01/20/17 20:00 Room Air Intake and Output 01/20/17 01/20/17 01/21/17 14:59 22:59 06:59 Intake Total 750 ml 1500 ml Output Total 500 ml 2200 ml Balance 250 ml -700 ml Exam Free Text/Dictation GENERAL: Noncommunicative, in no acute distress. HEENT: Pupils equal, reactive. No scleral icterus. Mucous membranes are moist. NECK: Baseline rigidity, no JVD. PULMONARY: Respiratory effort. No wheezing. HEART: S1, S2 present. ABDOMEN: Soft. PEG in place. EXTREMITIES: Contracted. VASCULAR: Capillary refill is 2 seconds. NEUROLOGIC: Does not follow commands. SKIN: No rashes. No jaundice. Multiple decubitus ulcerations of the right and left ischium, left elbow and sacrum at varying degrees. LYMPHATICS: No inguinal or cervical lymphadenopathy. Results Result Diagram: 01/17/17 0452 01/19/17 0515 JASON BENNETT MD Jan 21, 2017 22:05
[2017-01-22] MEDS: LANSOPRAZOLE 30 MG CAP GTB SCH (05:06)
[2017-01-22] MEDS: CIPROFLOXACIN 500 MG TAB PO SCH ×2 (05:06→17:12)
[2017-01-22 08:07] VITALS: BP 99/58; RESP 20
[2017-01-22] MEDS: FERROUS SULFATE 60 MG/ML 5ML CUP GTB SCH ×2 (09:39→22:14)
[2017-01-22] MEDS: ASCORBIC ACID 500 MG TAB GTB SCH (09:39)
[2017-01-22] MEDS: LACTOBACILLUS CHEW TAB PEG SCH (09:39)
[2017-01-22] MEDS: LAMOTRIGINE 100 MG TAB GTB SCH ×2 (09:39→22:13)
[2017-01-22] MEDS: TOPIRAMATE 25 MG TAB GTB SCH ×2 (09:40→22:11)
[2017-01-22] MEDS: COLLAGENASE 30 GM TUBE TOP SCH (09:40)
[2017-01-22] MEDS: PHENOBARBITAL 32.4 MG TAB PEG SCH ×2 (09:40→22:16)
[2017-01-22] MEDS: ZINC SULFATE 220 MG CAP GTB SCH (09:40)
[2017-01-22] MEDS: LAMOTRIGINE 25 MG TAB GTB SCH ×2 (09:40→22:11)
[2017-01-22] MEDS: NEOMYC/POLYMYX/BACIT 30 GM OINT TOP SCH ×2 (09:40→21:00)
[2017-01-22] MEDS: ENOXAPARIN 30 MG/0.3 ML SYG SC SCH (09:45)
--- NOTE | 2017-01-22 15:48 | CONS ---
Date/Time of Note Date/Time of Note DATE: 01/22/17 TIME: 15:47 Assessment/Plan Assessment/Plan Chief Complaint/Hosp Course SUBJECTIVE: No acute changes. The patient is awake, noncommunicative, lying comfortably in bed. No fevers. MICROBIOLOGY: Wound culture growing oxacillin-sensitive Staphylococcus aureus susceptible to Levaquin, clindamycin, Ancef, Cipro. INDWELLINGS: PEG and trach. PHYSICAL EXAMINATION: GENERAL: Chronically ill-appearing, young debilitated man, who is lying comfortably in bed. HEENT: Head atraumatic, normocephalic. Sclerae anicteric. Buccal mucosa dry. NECK: Supple. CHEST: Rise symmetrical. Breath sounds diminished to bases. HEART: S1, S2. ABDOMEN: Soft, bowel sounds present. EXTREMITIES: Without cyanosis. Contractures. SKIN: With multiple decubiti. ASSESSMENT: 1. Oxacillin-sensitive Staphylococcus aureus sacral wound. 2. Cachexia. 3. Anemia. 4. Dysphagia. 5. History of cerebral palsy and mental retardation. PLAN: Remains stable, continue abx, local wound care. Follow surgical recommendations, off load. DW staff Problems: Consultation Date/Type/Reason Admit Date/Time Jan 16, 2017 at 23:35 Type of Consultation: ID Exam/Review of Systems Vital Signs Vitals Vital Signs Date Time Temp Pulse Resp B/P Pulse Ox O2 Delivery O2 Flow Rate FiO2 01/22/17 08:07 97.5 78 20 99/58 97 01/21/17 20:00 Room Air Intake and Output 01/21/17 01/21/17 01/22/17 15:00 23:00 07:00 Intake Total 750 ml 750 ml Output Total 400 ml 200 ml Balance 350 ml 550 ml Results Result Diagram: 01/19/17 0515 Medications Medications Current Medications Ascorbic Acid (Vitamin C) 1,000 mg DAILY GTB Last administered on 01/22/17 09: 39; Admin Dose 1,000 MG; Start 01/17/17 at 09:00 Collagenase (Santyl) 1 applic DAILY TOP Last administered on 01/22/17 09:40; Admin Dose 1 APPLIC; Start 01/17/17 at 09:00 Lactobacillus Acidoph/Bulgaricus (Floranex) 1 tab DAILY PEG Last administered on 01/22/17 09:39; Admin Dose 1 TAB; Start 01/17/17 at 09:00 Lamotrigine (Lamictal) 25 mg BID GTB Last administered on 01/22/17 09:40; Admin Dose 25 MG; Start 01/17/17 at 09:00 Lamotrigine (Lamictal) 150 mg BID GTB Last administered on 01/22/17 09:39; Admin Dose 150 MG; Start 01/17/17 at 09:00 Metoclopramide HCl (Reglan) 10 mg Q8 PRN GTB NAUSEA AND/OR VOMITING; Start 09/23 at 00:30 Neomycin/ Polymyxin/ Bacitracin (Neosporin Topical Oint) 1 applic BID TOP Last administered on 01/22/17 09:40; Admin Dose 1 APPLIC; Start 01/17/17 at 09:00 Phenobarbital (Luminal) 97.2 mg BID PEG Last administered on 01/22/17 09:40; Admin Dose 97.2 MG; Start 01/17/17 at 09:00 Zinc Sulfate (Zinc Sulfate) 220 mg DAILY GTB Last administered on 01/22/17 09: 40; Admin Dose 220 MG; Start 01/17/17 at 09:00 Lansoprazole (Prevacid) 30 mg DAILY@06 GTB Last administered on 01/22/17 05:06 ; Admin Dose 30 MG; Start 01/17/17 at 06:00 Topiramate (Topamax) 75 mg BID GTB Last administered on 01/22/17 09:40; Admin Dose 75 MG; Start 01/17/17 at 09:00 Ferrous Sulfate (Feosol Liquid Cup) 300 mg BID GTB Last administered on 09:39; Admin Dose 300 MG; Start 01/17/17 at 09:00 Acetaminophen (Tylenol Liquid) 650 mg Q6H PRN GTB PAIN AND OR ELEVATED TEMP; Start 01/17/17 at 01:00 Enoxaparin Sodium (Lovenox) 30 mg DAILY SC Last administered on 01/22/17 09:45 ; Admin Dose 30 MG; Start 01/18/17 at 09:00 Ciprofloxacin (Cipro) 500 mg BID@06,18 PO Last administered on 01/22/17 05:06 ; Admin Dose 500 MG; Start 01/19/17 at 18:00 MANUEL PARRA NP Jan 22, 2017 15:47
--- NOTE | 2017-01-22 17:27 | PN ---
Date/Time of Note Date/Time of Note DATE: 01/22/17 TIME: 17:26 Assessment/Plan VTE Prophylaxis VTE Prophylaxis Intervention: other Lines/Catheters IV Catheter Type (from [facility]): Saline Lock Urinary Cath still in place: No Assessment/Plan Chief Complaint/Hosp Course IMPRESSION: The patient has: 1. Decubitus ulcer. 2. Sepsis. 3. G-tube placement. 4. Seizure disorder. 5. Anemia. 6. Cerebral palsy. 7. Incomplete database. 8 mssa plan antibiotic wound care per id home soon w home supplies Problems: Subjective 24 Hr Interval Summary Subjective hx not possible: other (d/w mom home soon need home supply) Exam/Review of Systems Vital Signs Vitals Vital Signs Date Time Temp Pulse Resp B/P Pulse Ox O2 Delivery O2 Flow Rate FiO2 01/22/17 08:07 97.5 78 20 99/58 97 01/21/17 20:00 Room Air Intake and Output 01/21/17 01/21/17 01/22/17 15:00 23:00 07:00 Intake Total 750 ml 750 ml Output Total 400 ml 200 ml Balance 350 ml 550 ml Exam Respiratory: clear to auscultation Cardiovascular: regular rate and rhythm Gastrointestinal: soft Skin: other (wound+) Results Result Diagram: 01/19/17 0515 Medications Medications Current Medications Ascorbic Acid (Vitamin C) 1,000 mg DAILY GTB Last administered on 01/22/17 09: 39; Admin Dose 1,000 MG; Start 01/17/17 at 09:00 Collagenase (Santyl) 1 applic DAILY TOP Last administered on 01/22/17 09:40; Admin Dose 1 APPLIC; Start 01/17/17 at 09:00 Lactobacillus Acidoph/Bulgaricus (Floranex) 1 tab DAILY PEG Last administered on 01/22/17 09:39; Admin Dose 1 TAB; Start 01/17/17 at 09:00 Lamotrigine (Lamictal) 25 mg BID GTB Last administered on 01/22/17 09:40; Admin Dose 25 MG; Start 01/17/17 at 09:00 Lamotrigine (Lamictal) 150 mg BID GTB Last administered on 01/22/17 09:39; Admin Dose 150 MG; Start 01/17/17 at 09:00 Metoclopramide HCl (Reglan) 10 mg Q8 PRN GTB NAUSEA AND/OR VOMITING; Start 09/23 at 00:30 Neomycin/ Polymyxin/ Bacitracin (Neosporin Topical Oint) 1 applic BID TOP Last administered on 01/22/17 09:40; Admin Dose 1 APPLIC; Start 01/17/17 at 09:00 Phenobarbital (Luminal) 97.2 mg BID PEG Last administered on 01/22/17 09:40; Admin Dose 97.2 MG; Start 01/17/17 at 09:00 Zinc Sulfate (Zinc Sulfate) 220 mg DAILY GTB Last administered on 01/22/17 09: 40; Admin Dose 220 MG; Start 01/17/17 at 09:00 Lansoprazole (Prevacid) 30 mg DAILY@06 GTB Last administered on 01/22/17 05:06 ; Admin Dose 30 MG; Start 01/17/17 at 06:00 Topiramate (Topamax) 75 mg BID GTB Last administered on 01/22/17 09:40; Admin Dose 75 MG; Start 01/17/17 at 09:00 Ferrous Sulfate (Feosol Liquid Cup) 300 mg BID GTB Last administered on 09:39; Admin Dose 300 MG; Start 01/17/17 at 09:00 Acetaminophen (Tylenol Liquid) 650 mg Q6H PRN GTB PAIN AND OR ELEVATED TEMP; Start 01/17/17 at 01:00 Enoxaparin Sodium (Lovenox) 30 mg DAILY SC Last administered on 01/22/17 09:45 ; Admin Dose 30 MG; Start 01/18/17 at 09:00 Ciprofloxacin (Cipro) 500 mg BID@06,18 PO Last administered on 01/22/17 17:12 ; Admin Dose 500 MG; Start 01/19/17 at 18:00 WILIAM VAZQUEZ MD Jan 22, 2017 17:27
--- NOTE | 2017-01-22 19:57 | PN ---
Date/Time of Note Date/Time of Note DATE: 01/22/17 TIME: 19:55 Assessment/Plan Lines/Catheters IV Catheter Type (from [facility]): Saline Lock Irvin in Place (from [facility]): No Assessment/Plan Chief Complaint/Hosp Course 1. Multiple decubitus ulcerations at varying stages -offloading, -nutritional optimization, -vitamin C, -local care, -short term zinc -debridement prn 2. Dysphagia, on tube feeds. 3. Anemia without evidence of acute blood loss. Continue monitoring. 4. Thrombocytosis secondary to inflammatory process of his wounds, rule out other sources. Continue monitoring. 5. Cerebral palsy, seizures, mental retardation continue medical optimization. Thank you Problems: Subjective 24 Hr Interval Summary No fever, chills, vomiting, bloating, jt swelling, rash, cough, sz. Bowel function. No pyuria. Exam/Review of Systems Vital Signs Vitals Vital Signs Date Time Temp Pulse Resp B/P Pulse Ox O2 Delivery O2 Flow Rate FiO2 01/22/17 08:07 97.5 78 20 99/58 97 01/21/17 20:00 Room Air Intake and Output 01/21/17 01/21/17 01/22/17 15:00 23:00 07:00 Intake Total 750 ml 750 ml Output Total 400 ml 200 ml Balance 350 ml 550 ml Exam Free Text/Dictation GENERAL: Noncommunicative, in no acute distress. HEENT: Pupils equal, reactive. No scleral icterus. Mucous membranes are moist. NECK: Baseline rigidity, no JVD. PULMONARY: Respiratory effort. No wheezing. HEART: S1, S2 present. ABDOMEN: Soft. PEG in place. EXTREMITIES: Contracted. VASCULAR: Capillary refill is 2 seconds. NEUROLOGIC: Does not follow commands. SKIN: No rashes. No jaundice. Multiple decubitus ulcerations of the right and left ischium, left elbow and sacrum at varying degrees. LYMPHATICS: No inguinal or cervical lymphadenopathy. Results Result Diagram: 01/19/17 0515 JASON BENNETT MD Jan 22, 2017 19:57
[2017-01-22 21:31] VITALS: BP 92/55; RESP 18
[2017-01-22] MEDS: ACETAMINOPHEN 650MG/20.3ML CUP GTB PRN (22:27)
[2017-01-23 05:31] LABS: CREATININE 0.45 mg/dl (0.61-1.24)
[2017-01-23] MEDS: LANSOPRAZOLE 30 MG CAP GTB SCH (08:02)
[2017-01-23] MEDS: CIPROFLOXACIN 500 MG TAB PO SCH ×2 (08:03→17:14)
[2017-01-23 08:06] VITALS: BP 107/65; RESP 18
[2017-01-23] MEDS: ACETAMINOPHEN 650MG/20.3ML CUP GTB PRN (08:06)
[2017-01-23] MEDS: FERROUS SULFATE 60 MG/ML 5ML CUP GTB SCH ×2 (09:26→20:35)
[2017-01-23] MEDS: ENOXAPARIN 30 MG/0.3 ML SYG SC SCH (09:26)
[2017-01-23] MEDS: PHENOBARBITAL 32.4 MG TAB PEG SCH ×2 (09:27→20:37)
[2017-01-23] MEDS: ASCORBIC ACID 500 MG TAB GTB SCH (09:28)
[2017-01-23] MEDS: TOPIRAMATE 25 MG TAB GTB SCH ×2 (09:28→20:37)
[2017-01-23] MEDS: LACTOBACILLUS CHEW TAB PEG SCH (09:30)
[2017-01-23] MEDS: LAMOTRIGINE 25 MG TAB GTB SCH ×2 (09:30→20:37)
[2017-01-23] MEDS: ZINC SULFATE 220 MG CAP GTB SCH (09:30)
[2017-01-23] MEDS: LAMOTRIGINE 100 MG TAB GTB SCH ×2 (09:30→20:36)
[2017-01-23] MEDS: NEOMYC/POLYMYX/BACIT 30 GM OINT TOP SCH ×2 (09:31→20:38)
[2017-01-23] MEDS: COLLAGENASE 30 GM TUBE TOP SCH (09:32)
--- NOTE | 2017-01-23 12:32 | PN ---
Date/Time of Note Date/Time of Note DATE: 01/23/17 TIME: 12:31 Assessment/Plan Lines/Catheters IV Catheter Type (from [facility]): Saline Lock Irvin in Place (from [facility]): No Assessment/Plan Chief Complaint/Hosp Course 1. Multiple decubitus ulcerations at varying stages -offloading -nutritional optimization -vitamin C -local care -short term zinc -debridement prn 2. Dysphagia, on tube feeds. 3. Anemia without evidence of acute blood loss. Continue monitoring. 4. Thrombocytosis secondary to inflammatory process of his wounds, rule out other sources. Continue monitoring. 5. Cerebral palsy, seizures, mental retardation continue medical optimization. Thank you Problems: Subjective 24 Hr Interval Summary No fever, chills, vomiting, bloating, jt swelling, rash, cough, sz. Bowel function. No pyuria. Exam/Review of Systems Vital Signs Vitals Vital Signs Date Time Temp Pulse Resp B/P Pulse Ox O2 Delivery O2 Flow Rate FiO2 01/23/17 08:06 96.8 90 18 107/65 97 01/22/17 22:45 21 01/21/17 20:00 Room Air Intake and Output 01/22/17 01/22/17 01/23/17 15:00 23:00 07:00 Intake Total 860 ml 750 ml Output Total 1100 ml 600 ml Balance -240 ml 150 ml Exam Free Text/Dictation GENERAL: Noncommunicative, in no acute distress. HEENT: Pupils equal, reactive. No scleral icterus. Mucous membranes are moist. NECK: Baseline rigidity, no JVD. PULMONARY: Respiratory effort. No wheezing. HEART: S1, S2 present. ABDOMEN: Soft. PEG in place. EXTREMITIES: Contracted. VASCULAR: Capillary refill is 2 seconds. NEUROLOGIC: Does not follow commands. SKIN: No rashes. No jaundice. Multiple decubitus ulcerations of the right and left ischium, left elbow and sacrum at varying degrees. LYMPHATICS: No inguinal or cervical lymphadenopathy. Results Result Diagram: 01/23/17 0410 JASON BENNETT MD Jan 23, 2017 12:32
[2017-01-23] MEDS ORDERED: SILVER NITRATE SWAB TOP STA (17:40)
--- NOTE | 2017-01-23 17:41 | CONS ---
Date/Time of Note Date/Time of Note DATE: 01/23/17 TIME: 17:40 Assessment/Plan Assessment/Plan Chief Complaint/Hosp Course SUBJECTIVE: No acute changes, lying comfortably in bed. No fevers. MICROBIOLOGY: Wound culture growing oxacillin-sensitive Staphylococcus aureus susceptible to Levaquin, clindamycin, Ancef, Cipro. INDWELLINGS: PEG and trach. PHYSICAL EXAMINATION: GENERAL: Chronically ill-appearing, young debilitated man, who is lying comfortably in bed. HEENT: Head atraumatic, normocephalic. Sclerae anicteric. Buccal mucosa dry. NECK: Supple. CHEST: Rise symmetrical. Breath sounds diminished to bases. HEART: S1, S2. ABDOMEN: Soft, bowel sounds present. EXTREMITIES: Without cyanosis. Contractures. SKIN: With multiple decubiti. ASSESSMENT: 1. Oxacillin-sensitive Staphylococcus aureus sacral wound. 2. Cachexia. 3. Anemia. 4. Dysphagia. 5. History of cerebral palsy and mental retardation. PLAN: Remains stable, continue abx, local wound care. Follow surgical recommendations, off load. DW staff Problems: Consultation Date/Type/Reason Admit Date/Time Jan 16, 2017 at 23:35 Type of Consultation: ID Exam/Review of Systems Vital Signs Vitals Vital Signs Date Time Temp Pulse Resp B/P Pulse Ox O2 Delivery O2 Flow Rate FiO2 01/23/17 08:06 96.8 90 18 107/65 97 01/22/17 22:45 21 01/21/17 20:00 Room Air Intake and Output 01/22/17 01/22/17 01/23/17 15:00 23:00 07:00 Intake Total 860 ml 750 ml Output Total 1100 ml 600 ml Balance -240 ml 150 ml Results Result Diagram: 01/23/17 0410 Results 24 hrs Laboratory Tests Test 01/23/17 04:10 Blood Urea Nitrogen 17 Creatinine 0.45 L Medications Medications Current Medications Ascorbic Acid (Vitamin C) 1,000 mg DAILY GTB Last administered on 01/23/17 09: 28; Admin Dose 1,000 MG; Start 01/17/17 at 09:00 Collagenase (Santyl) 1 applic DAILY TOP Last administered on 01/23/17 09:32; Admin Dose 1 APPLIC; Start 01/17/17 at 09:00 Lactobacillus Acidoph/Bulgaricus (Floranex) 1 tab DAILY PEG Last administered on 01/23/17 09:30; Admin Dose 1 TAB; Start 01/17/17 at 09:00 Lamotrigine (Lamictal) 25 mg BID GTB Last administered on 01/23/17 09:30; Admin Dose 25 MG; Start 01/17/17 at 09:00 Lamotrigine (Lamictal) 150 mg BID GTB Last administered on 01/23/17 09:30; Admin Dose 150 MG; Start 01/17/17 at 09:00 Metoclopramide HCl (Reglan) 10 mg Q8 PRN GTB NAUSEA AND/OR VOMITING; Start 09/23 at 00:30 Neomycin/ Polymyxin/ Bacitracin (Neosporin Topical Oint) 1 applic BID TOP Last administered on 01/23/17 09:31; Admin Dose 1 APPLIC; Start 01/17/17 at 09:00 Phenobarbital (Luminal) 97.2 mg BID PEG Last administered on 01/23/17 09:27; Admin Dose 97.2 MG; Start 01/17/17 at 09:00 Zinc Sulfate (Zinc Sulfate) 220 mg DAILY GTB Last administered on 01/23/17 09: 30; Admin Dose 220 MG; Start 01/17/17 at 09:00 Lansoprazole (Prevacid) 30 mg DAILY@06 GTB Last administered on 01/23/17 08:02 ; Admin Dose 30 MG; Start 01/17/17 at 06:00 Topiramate (Topamax) 75 mg BID GTB Last administered on 01/23/17 09:28; Admin Dose 75 MG; Start 01/17/17 at 09:00 Ferrous Sulfate (Feosol Liquid Cup) 300 mg BID GTB Last administered on 09:26; Admin Dose 300 MG; Start 01/17/17 at 09:00 Acetaminophen (Tylenol Liquid) 650 mg Q6H PRN GTB PAIN AND OR ELEVATED TEMP Last administered on 01/23/17 08:06; Admin Dose 650 MG; Start 01/17/17 at 01:00 Enoxaparin Sodium (Lovenox) 30 mg DAILY SC Last administered on 01/23/17 09:26 ; Admin Dose 30 MG; Start 01/18/17 at 09:00 Ciprofloxacin (Cipro) 500 mg BID@18 PO Last administered on 01/23/17t 17:14 ; Admin Dose 500 MG; Start 01/19/17 at 18:00 MANUEL PARRA NP Jan 23, 2017 17:41
--- NOTE | 2017-01-23 17:55 | PN ---
Date/Time of Note Date/Time of Note DATE: 01/23/17 TIME: 17:55 Assessment/Plan VTE Prophylaxis VTE Prophylaxis Intervention: other Lines/Catheters IV Catheter Type (from [email or web address] Saline Lock Urinary Cath still in place: No Assessment/Plan Chief Complaint/Hosp Course IMPRESSION: The patient has: 1. Decubitus ulcer. 2. Sepsis. 3. G-tube placement. 4. Seizure disorder. 5. Anemia. 6. Cerebral palsy. 7. Incomplete database. 8 [facility] plan antibiotic wound care per id home soon w home supplies ok to home per surgery Problems: Subjective 24 Hr Interval Summary Gastrointestinal: no complaints Exam/Review of Systems Vital Signs Vitals Vital Signs Date Time Temp Pulse Resp B/P Pulse Ox O2 Delivery O2 Flow Rate FiO2 01/23/17 08:06 96.8 90 18 107/65 97 01/22/17 22:45 21 01/21/17 20:00 Room Air Intake and Output 01/22/17 01/22/17 01/23/17 15:00 23:00 07:00 Intake Total 860 ml 750 ml Output Total 1100 ml 600 ml Balance -240 ml 150 ml Exam Neck: supple Respiratory: clear to auscultation Cardiovascular: regular rate and rhythm Gastrointestinal: soft Musculoskeletal: nl extremities to inspection Results Result Diagram: 01/23/17 0410 Results 24 hrs Laboratory Tests Test 01/23/17 04:10 Blood Urea Nitrogen 17 Creatinine 0.45 L Medications Medications Current Medications Ascorbic Acid (Vitamin C) 1,000 mg DAILY GTB Last administered on 01/23/17 09: 28; Admin Dose 1,000 MG; Start 01/17/17 at 09:00 Collagenase (Santyl) 1 applic DAILY TOP Last administered on 01/23/17 09:32; Admin Dose 1 APPLIC; Start 01/17/17 at 09:00 Lactobacillus Acidoph/Bulgaricus (Floranex) 1 tab DAILY PEG Last administered on 01/23/17 09:30; Admin Dose 1 TAB; Start 01/17/17 at 09:00 Lamotrigine (Lamictal) 25 mg BID GTB Last administered on 01/23/17 09:30; Admin Dose 25 MG; Start 01/17/17 at 09:00 Lamotrigine (Lamictal) 150 mg BID GTB Last administered on 01/23/17 09:30; Admin Dose 150 MG; Start 01/17/17 at 09:00 Metoclopramide HCl (Reglan) 10 mg Q8 PRN GTB NAUSEA AND/OR VOMITING; Start 09/23 at 00:30 Neomycin/ Polymyxin/ Bacitracin (Neosporin Topical Oint) 1 applic BID TOP Last administered on 01/23/17 09:31; Admin Dose 1 APPLIC; Start 01/17/17 at 09:00 Phenobarbital (Luminal) 97.2 mg BID PEG Last administered on 01/23/17 09:27; Admin Dose 97.2 MG; Start 01/17/17 at 09:00 Zinc Sulfate (Zinc Sulfate) 220 mg DAILY GTB Last administered on 01/23/17 09: 30; Admin Dose 220 MG; Start 01/17/17 at 09:00 Lansoprazole (Prevacid) 30 mg DAILY@06 GTB Last administered on 01/23/17 08:02 ; Admin Dose 30 MG; Start 01/17/17 at 06:00 Topiramate (Topamax) 75 mg BID GTB Last administered on 01/23/17 09:28; Admin Dose 75 MG; Start 01/17/17 at 09:00 Ferrous Sulfate (Feosol Liquid Cup) 300 mg BID GTB Last administered on 09:26; Admin Dose 300 MG; Start 01/17/17 at 09:00 Acetaminophen (Tylenol Liquid) 650 mg Q6H PRN GTB PAIN AND OR ELEVATED TEMP Last administered on 01/23/17 08:06; Admin Dose 650 MG; Start 01/17/17 at 01:00 Enoxaparin Sodium (Lovenox) 30 mg DAILY SC Last administered on 01/23/17 09:26 ; Admin Dose 30 MG; Start 01/18/17 at 09:00 Ciprofloxacin (Cipro) 500 mg BID@ PO Last administered on 01/23/17 17:14 ; Admin Dose 500 MG; Start 01/19/17 at 18:00 WILIAM VAZQUEZ MD Jan 23, 2017 17:55
[2017-01-23 21:06] VITALS: BP 91/55; RESP 16
[2017-01-24] MEDS: CIPROFLOXACIN 500 MG TAB PO SCH ×2 (05:35→18:48)
[2017-01-24] MEDS: LANSOPRAZOLE 30 MG CAP GTB SCH (05:35)
[2017-01-24 08:04] VITALS: BP 119/64; RESP 16
[2017-01-24] MEDS: ZINC SULFATE 220 MG CAP GTB SCH (08:59)
[2017-01-24] MEDS: ENOXAPARIN 30 MG/0.3 ML SYG SC SCH (09:00)
[2017-01-24] MEDS: LAMOTRIGINE 25 MG TAB GTB SCH ×2 (09:00→22:22)
[2017-01-24] MEDS: LACTOBACILLUS CHEW TAB PEG SCH (09:00)
[2017-01-24] MEDS: FERROUS SULFATE 60 MG/ML 5ML CUP GTB SCH ×2 (09:00→22:22)
[2017-01-24] MEDS: TOPIRAMATE 25 MG TAB GTB SCH ×2 (09:00→22:24)
[2017-01-24] MEDS: ASCORBIC ACID 500 MG TAB GTB SCH (09:00)
[2017-01-24] MEDS: COLLAGENASE 30 GM TUBE TOP SCH ×2 (09:00→18:47)
[2017-01-24] MEDS: LAMOTRIGINE 100 MG TAB GTB SCH ×2 (09:00→22:23)
[2017-01-24] MEDS: NEOMYC/POLYMYX/BACIT 30 GM OINT TOP SCH ×2 (09:05→22:24)
[2017-01-24] MEDS: PHENOBARBITAL 32.4 MG TAB PEG SCH ×2 (09:09→22:22)
--- NOTE | 2017-01-24 13:04 | PN ---
Date/Time of Note Date/Time of Note DATE: 01/24/17 TIME: 13:03 Assessment/Plan Lines/Catheters IV Catheter Type (from [facility]): Saline Lock Irvin in Place (from [facility]): No Assessment/Plan Chief Complaint/Hosp Course 1. Multiple decubitus ulcerations at varying stages -offloading -nutritional optimization -vitamin C -local care -short term zinc -debridement prn 2. Dysphagia, on tube feeds. 3. Anemia without evidence of acute blood loss. Continue monitoring. 4. Thrombocytosis secondary to inflammatory process of his wounds, rule out other sources. Continue monitoring. 5. Cerebral palsy, seizures, mental retardation continue medical optimization. Thank you Problems: Subjective 24 Hr Interval Summary No fever, chills, vomiting, bloating, jt swelling, rash, cough, sz. Bowel function. No pyuria. Exam/Review of Systems Vital Signs Vitals Vital Signs Date Time Temp Pulse Resp B/P Pulse Ox O2 Delivery O2 Flow Rate FiO2 01/24/17 08:04 97.0 90 16 119/64 97 01/22/17 22:45 21 01/21/17 20:00 Room Air Intake and Output 01/23/17 01/23/17 01/24/17 15:00 23:00 07:00 Intake Total 920 ml 750 ml Output Total 300 ml 550 ml Balance 620 ml 200 ml Exam Free Text/Dictation GENERAL: Noncommunicative, in no acute distress. HEENT: Pupils equal, reactive. No scleral icterus. Mucous membranes are moist. NECK: Baseline rigidity, no JVD. PULMONARY: Respiratory effort. No wheezing. HEART: S1, S2 present. ABDOMEN: Soft. PEG in place. EXTREMITIES: Contracted. VASCULAR: Capillary refill is 2 seconds. NEUROLOGIC: Does not follow commands. SKIN: No rashes. No jaundice. Multiple decubitus ulcerations of the right and left ischium, left elbow and sacrum at varying degrees. LYMPHATICS: No inguinal or cervical lymphadenopathy. Results Result Diagram: 01/23/17 0410 JASON BENNETT MD Jan 24, 2017 13:04
--- NOTE | 2017-01-24 13:11 | PN ---
Date/Time of Note Date/Time of Note DATE: 01/24/17 TIME: 13:11 Assessment/Plan VTE Prophylaxis VTE Prophylaxis Intervention: other Lines/Catheters IV Catheter Type (from [facility] [place]): Saline Lock Urinary Cath still in place: No Assessment/Plan Chief Complaint/Hosp Course IMPRESSION: The patient has: 1. Decubitus ulcer. 2. Sepsis. 3. G-tube placement. 4. Seizure disorder. 5. Anemia. 6. Cerebral palsy. 7. Incomplete database. 8 [facility] plan antibiotic wound care per id home soon w home supplies ok to home per surgery waiting for all supplies Problems: Subjective 24 Hr Interval Summary Subjective hx not possible: pt non-verbal Exam/Review of Systems Vital Signs Vitals Vital Signs Date Time Temp Pulse Resp B/P Pulse Ox O2 Delivery O2 Flow Rate FiO2 01/24/17 08:04 97.0 90 16 119/64 97 01/22/17 22:45 21 01/21/17 20:00 Room Air Intake and Output 01/23/17 01/23/17 01/24/17 15:00 23:00 07:00 Intake Total 920 ml 750 ml Output Total 300 ml 550 ml Balance 620 ml 200 ml Exam ENMT: nl external ears & nose Neck: supple Respiratory: clear to auscultation Results Result Diagram: 01/23/17 0410 Medications Medications Current Medications Ascorbic Acid (Vitamin C) 1,000 mg DAILY GTB Last administered on 01/24/17 09: 00; Admin Dose 1,000 MG; Start 01/17/17 at 09:00 Collagenase (Santyl) 1 applic DAILY TOP Last administered on 01/23/17 09:32; Admin Dose 1 APPLIC; Start 01/17/17 at 09:00 Lactobacillus Acidoph/Bulgaricus (Floranex) 1 tab DAILY PEG Last administered on 01/24/17 09:00; Admin Dose 1 TAB; Start 01/17/17 at 09:00 Lamotrigine (Lamictal) 25 mg BID GTB Last administered on 01/24/17 09:00; Admin Dose 25 MG; Start 01/17/17 at 09:00 Lamotrigine (Lamictal) 150 mg BID GTB Last administered on 01/24/17 09:00; Admin Dose 150 MG; Start 01/17/17 at 09:00 Metoclopramide HCl (Reglan) 10 mg Q8 PRN GTB NAUSEA AND/OR VOMITING; Start 09/23 at 00:30 Neomycin/ Polymyxin/ Bacitracin (Neosporin Topical Oint) 1 applic BID TOP Last administered on 01/24/17 09:05; Admin Dose 1 APPLIC; Start 01/17/17 at 09:00 Phenobarbital (Luminal) 97.2 mg BID PEG Last administered on 01/24/17 09:09; Admin Dose 97.2 MG; Start 01/17/17 at 09:00 Zinc Sulfate (Zinc Sulfate) 220 mg DAILY GTB Last administered on 01/24/17 08: 59; Admin Dose 220 MG; Start 01/17/17 at 09:00 Lansoprazole (Prevacid) 30 mg DAILY@06 GTB Last administered on 01/24/17 05:35 ; Admin Dose 30 MG; Start 01/17/17 at 06:00 Topiramate (Topamax) 75 mg BID GTB Last administered on 01/24/17 09:00; Admin Dose 75 MG; Start 01/17/17 at 09:00 Ferrous Sulfate (Feosol Liquid Cup) 300 mg BID GTB Last administered on 09:00; Admin Dose 300 MG; Start 01/17/17 at 09:00 Acetaminophen (Tylenol Liquid) 650 mg Q6H PRN GTB PAIN AND OR ELEVATED TEMP Last administered on 01/23/17 08:06; Admin Dose 650 MG; Start 01/17/17 at 01:00 Enoxaparin Sodium (Lovenox) 30 mg DAILY SC Last administered on 01/23/17 09:26 ; Admin Dose 30 MG; Start 01/18/17 at 09:00 Ciprofloxacin (Cipro) 500 mg BID@,18 PO Last administered on 01/24/17 05:35 ; Admin Dose 500 MG; Start 01/19/17 at 18:00 WILIAM VAZQUEZ MD Jan 24, 2017 13:11
--- NOTE | 2017-01-24 15:41 | CONS ---
Date/Time of Note Date/Time of Note DATE: 01/24/17 TIME: 15:41 Assessment/Plan Assessment/Plan Chief Complaint/Hosp Course SUBJECTIVE: No acute changes, lying comfortably in bed. No fevers. MICROBIOLOGY: Wound culture growing oxacillin-sensitive Staphylococcus aureus susceptible to Levaquin, clindamycin, Ancef, Cipro. INDWELLINGS: PEG and trach. PHYSICAL EXAMINATION: GENERAL: Chronically ill-appearing, young debilitated man, who is lying comfortably in bed. HEENT: Head atraumatic, normocephalic. Sclerae anicteric. Buccal mucosa dry. NECK: Supple. CHEST: Rise symmetrical. Breath sounds diminished to bases. HEART: S1, S2. ABDOMEN: Soft, bowel sounds present. EXTREMITIES: Without cyanosis. Contractures. SKIN: With multiple decubiti. ASSESSMENT: 1. Oxacillin-sensitive Staphylococcus aureus sacral wound. 2. Cachexia. 3. Anemia. 4. Dysphagia. 5. History of cerebral palsy and mental retardation. PLAN: Remains stable, continue abx, local wound care. Follow surgical recommendations, check labs. DW staff Problems: Consultation Date/Type/Reason Admit Date/Time Jan 16, 2017 at 23:35 Type of Consultation: ID Exam/Review of Systems Vital Signs Vitals Vital Signs Date Time Temp Pulse Resp B/P Pulse Ox O2 Delivery O2 Flow Rate FiO2 01/24/17 08:04 97.0 90 16 119/64 97 01/22/17 22:45 21 01/21/17 20:00 Room Air Intake and Output 01/23/17 01/23/17 01/24/17 15:00 23:00 07:00 Intake Total 920 ml 750 ml Output Total 300 ml 550 ml Balance 620 ml 200 ml Results Result Diagram: 01/23/17 0410 Medications Medications Current Medications Ascorbic Acid (Vitamin C) 1,000 mg DAILY GTB Last administered on 01/24/17 09: 00; Admin Dose 1,000 MG; Start 01/17/17 at 09:00 Collagenase (Santyl) 1 applic DAILY TOP Last administered on 01/23/17 09:32; Admin Dose 1 APPLIC; Start 01/17/17 at 09:00 Lactobacillus Acidoph/Bulgaricus (Floranex) 1 tab DAILY PEG Last administered on 01/24/17 09:00; Admin Dose 1 TAB; Start 01/17/17 at 09:00 Lamotrigine (Lamictal) 25 mg BID GTB Last administered on 01/24/17 09:00; Admin Dose 25 MG; Start 01/17/17 at 09:00 Lamotrigine (Lamictal) 150 mg BID GTB Last administered on 01/24/17 09:00; Admin Dose 150 MG; Start 01/17/17 at 09:00 Metoclopramide HCl (Reglan) 10 mg Q8 PRN GTB NAUSEA AND/OR VOMITING; Start 09/23 at 00:30 Neomycin/ Polymyxin/ Bacitracin (Neosporin Topical Oint) 1 applic BID TOP Last administered on 01/24/17 09:05; Admin Dose 1 APPLIC; Start 01/17/17 at 09:00 Phenobarbital (Luminal) 97.2 mg BID PEG Last administered on 01/24/17 09:09; Admin Dose 97.2 MG; Start 01/17/17 at 09:00 Zinc Sulfate (Zinc Sulfate) 220 mg DAILY GTB Last administered on 01/24/17 08: 59; Admin Dose 220 MG; Start 01/17/17 at 09:00 Lansoprazole (Prevacid) 30 mg DAILY@06 GTB Last administered on 01/24/17 05:35 ; Admin Dose 30 MG; Start 01/17/17 at 06:00 Topiramate (Topamax) 75 mg BID GTB Last administered on 01/24/17 09:00; Admin Dose 75 MG; Start 01/17/17 at 09:00 Ferrous Sulfate (Feosol Liquid Cup) 300 mg BID GTB Last administered on 09:00; Admin Dose 300 MG; Start 01/17/17 at 09:00 Acetaminophen (Tylenol Liquid) 650 mg Q6H PRN GTB PAIN AND OR ELEVATED TEMP Last administered on 01/23/17 08:06; Admin Dose 650 MG; Start 01/17/17 at 01:00 Enoxaparin Sodium (Lovenox) 30 mg DAILY SC Last administered on 01/23/17 09:26 ; Admin Dose 30 MG; Start 01/18/17 at 09:00 Ciprofloxacin (Cipro) 500 mg BID@,18 PO Last administered on 01/24/17 05:35 ; Admin Dose 500 MG; Start 01/19/17 at 18:00 MANUEL PARRA NP Jan 24, 2017 15:41
[2017-01-24 16:22] LABS: ADD SCAN DIFF NO
[2017-01-24 16:25] LABS: BASOPHIL # 0.1 10^3/ul (0.0-0.1); BASOPHILS % 1.7 % (0.0-2.0); EOSINOPHILS # 0.5 10^3/ul (0.0-0.5); EOSINOPHILS % 8.2 % (0.0-7.0); HEMOGLOBIN 10.1 g/dl (14.0-18.0); LYMPHOCYTES # 1.8 10^3/ul (0.8-2.9); LYMPHOCYTES % 29.9 % (15.0-51.0); MEAN CORPUSCULAR HEMOGLOBIN 28.9 pg (29.0-33.0); MEAN CORPUSCULAR HGB CONC 31.6 g/dl (32.0-37.0); MEAN CORPUSCULAR VOLUME 91.7 fl (82.0-101.0); MEAN PLATELET VOLUME 9.6 fl (7.4-10.4); MONOCYTE # 0.8 10^3/ul (0.3-0.9); MONOCYTES % 13.7 % (0.0-11.0); NEUTROPHIL # 2.7 10^3/ul (1.6-7.5); NEUTROPHILS % 46.3 % (39.0-77.0); PLATELET COUNT 422 10^3/UL (140-415); RED BLOOD COUNT 3.49 10^6/ul (4.70-6.10); WHITE BLOOD COUNT 5.9 10^3/ul (4.8-10.8)
[2017-01-24 19:25] VITALS: BP 105/58; RESP 18
--- NOTE | 2017-01-24 20:45 | OPR ---
Date/Time of Note Date/Time of Note DATE: 01/24/17 TIME: 20:42 Operative Report Procedure Date: Jan 24, 2017 Preoperative Diagnosis Sacral stage IV decubitus ulcer with devitalized tissue, 7 x 6 cm Postoperative Diagnosis Same Operation Performed Excisional debridement of sacral subcutaneous and fascia, 7 x 6 cm Surgeon: JASON BENNETT MD Estimated Blood Loss: 0 - 10 ml's Specimens None Tubes/Drains Dressing Complications: None Pt Condition Post Procedure: stable Disposition: other (own room) Indications Per notes Risks, benefits, alternatives as usual and customary Procedure Description Patient was on his own bed & placed in lateral decubitus position. All pressure points were well-padded. Timeout was performed. He was prepped and draped in usual sterile fashion. Using curet subcutaneous, and fascia were excised and debrided down to healthier tissue. Hemostasis was obtained. Wound was dressed. Patient tolerated procedure well JASON BENNETT MD Jan 24, 2017 20:45
[2017-01-24] MEDS: ACETAMINOPHEN 650MG/20.3ML CUP GTB PRN (22:22)
[2017-01-25] MEDS: CIPROFLOXACIN 500 MG TAB PO SCH ×2 (05:27→18:15)
[2017-01-25] MEDS: LANSOPRAZOLE 30 MG CAP GTB SCH (05:27)
[2017-01-25 07:30] VITALS: BP 88/54; RESP 20
[2017-01-25] MEDS: ASCORBIC ACID 500 MG TAB GTB SCH (08:07)
[2017-01-25] MEDS: LAMOTRIGINE 100 MG TAB GTB SCH ×2 (08:07→19:55)
[2017-01-25] MEDS: PHENOBARBITAL 32.4 MG TAB PEG SCH ×2 (08:07→19:58)
[2017-01-25] MEDS: FERROUS SULFATE 60 MG/ML 5ML CUP GTB SCH ×2 (08:07→19:54)
[2017-01-25] MEDS: ACETAMINOPHEN 650MG/20.3ML CUP GTB PRN (08:07)
[2017-01-25] MEDS: ZINC SULFATE 220 MG CAP GTB SCH (08:07)
[2017-01-25] MEDS: TOPIRAMATE 25 MG TAB GTB SCH ×2 (08:07→19:56)
[2017-01-25] MEDS: LAMOTRIGINE 25 MG TAB GTB SCH ×2 (08:08→19:56)
[2017-01-25] MEDS: ENOXAPARIN 30 MG/0.3 ML SYG SC SCH (08:08)
[2017-01-25] MEDS: LACTOBACILLUS CHEW TAB PEG SCH (08:08)
[2017-01-25] MEDS: NEOMYC/POLYMYX/BACIT 30 GM OINT TOP SCH ×2 (08:09→19:59)
[2017-01-25] MEDS: COLLAGENASE 30 GM TUBE TOP SCH (08:09)
--- NOTE | 2017-01-25 11:50 | PDOCDIS ---
Discharge Instructions CONDITION Patient Condition: Stable HOME CARE INSTRUCTIONS: Special Diet: Tube feeding ACTIVITY: Activity Restrictions: Slowly Increase Activity FOLLOW UP/APPOINTMENTS Appointments f/u own pcp 1 wk f/u dr susanne bejarano 1 wk WILIAM VAZQUEZ MD Jan 25, 2017 11:50
[2017-01-25] MEDS ORDERED: CIPR500T4 PO (11:53)
--- NOTE | 2017-01-25 15:06 | CONS ---
Date/Time of Note Date/Time of Note DATE: 01/25/17 TIME: 15:05 Assessment/Plan Assessment/Plan Chief Complaint/Hosp Course SUBJECTIVE: No acute changes, lying comfortably in bed. No fevers. MICROBIOLOGY: Wound culture growing oxacillin-sensitive Staphylococcus aureus susceptible to Levaquin, clindamycin, Ancef, Cipro. INDWELLINGS: PEG and trach. PHYSICAL EXAMINATION: GENERAL: Chronically ill-appearing, young debilitated man, who is lying comfortably in bed. HEENT: Head atraumatic, normocephalic. Sclerae anicteric. Buccal mucosa dry. NECK: Supple. CHEST: Rise symmetrical. Breath sounds diminished to bases. HEART: S1, S2. ABDOMEN: Soft, bowel sounds present. EXTREMITIES: Without cyanosis. Contractures. SKIN: With multiple decubiti. ASSESSMENT: 1. Oxacillin-sensitive Staphylococcus aureus sacral wound. 2. Cachexia. 3. Anemia. 4. Dysphagia. 5. History of cerebral palsy and mental retardation. PLAN: Remains stable, continue abx, local wound care per surgical recommendations. DW staff Problems: Consultation Date/Type/Reason Admit Date/Time Jan 16, 2017 at 23:35 Type of Consultation: ID Exam/Review of Systems Vital Signs Vitals Vital Signs Date Time Temp Pulse Resp B/P Pulse Ox O2 Delivery O2 Flow Rate FiO2 01/25/17 07:30 98.3 71 20 88/54 100 01/22/17 22:45 21 01/21/17 20:00 Room Air Intake and Output 01/24/17 01/24/17 01/25/17 15:00 23:00 07:00 Intake Total 750 ml 980 ml Output Total 700 ml 500 ml Balance 50 ml 480 ml Results Result Diagram: 01/24/17 1616 01/23/17 0410 Results 24 hrs Laboratory Tests Test 01/24/17 16:16 White Blood Count 5.9 Red Blood Count 3.49 L Hemoglobin 10.1 L Hematocrit 32.0 L Mean Corpuscular Volume 91.7 Mean Corpuscular Hemoglobin 28.9 L Mean Corpuscular Hemoglobin Concent 31.6 L Red Cell Distribution Width 16.0 H Platelet Count 422 H Mean Platelet Volume 9.6 Neutrophils % 46.3 Lymphocytes % 29.9 Monocytes % 13.7 H Eosinophils % 8.2 H Basophils % 1.7 Nucleated Red Blood Cells % 0.0 Neutrophils # 2.7 Lymphocytes # 1.8 Monocytes # 0.8 Eosinophils # 0.5 Basophils # 0.1 Nucleated Red Blood Cells # 0.0 Medications Medications Current Medications Ascorbic Acid (Vitamin C) 1,000 mg DAILY GTB Last administered on 01/25/17 08: 07; Admin Dose 1,000 MG; Start 01/17/17 at 09:00 Collagenase (Santyl) 1 applic DAILY TOP Last administered on 01/25/17 08:09; Admin Dose 1 APPLIC; Start 01/17/17 at 09:00 Lactobacillus Acidoph/Bulgaricus (Floranex) 1 tab DAILY PEG Last administered on 01/25/17 08:08; Admin Dose 1 TAB; Start 01/17/17 at 09:00 Lamotrigine (Lamictal) 25 mg BID GTB Last administered on 01/25/17 08:08; Admin Dose 25 MG; Start 01/17/17 at 09:00 Lamotrigine (Lamictal) 150 mg BID GTB Last administered on 01/25/17 08:07; Admin Dose 150 MG; Start 01/17/17 at 09:00 Metoclopramide HCl (Reglan) 10 mg Q8 PRN GTB NAUSEA AND/OR VOMITING; Start 09/23 at 00:30 Neomycin/ Polymyxin/ Bacitracin (Neosporin Topical Oint) 1 applic BID TOP Last administered on 01/25/17 08:09; Admin Dose 1 APPLIC; Start 01/17/17 at 09:00 Phenobarbital (Luminal) 97.2 mg BID PEG Last administered on 01/25/17 08:07; Admin Dose 97.2 MG; Start 01/17/17 at 09:00 Zinc Sulfate (Zinc Sulfate) 220 mg DAILY GTB Last administered on 01/25/17 08: 07; Admin Dose 220 MG; Start 01/17/17 at 09:00 Lansoprazole (Prevacid) 30 mg DAILY@06 GTB Last administered on 01/25/17 05:27 ; Admin Dose 30 MG; Start 01/17/17 at 06:00 Topiramate (Topamax) 75 mg BID GTB Last administered on 01/25/17 08:07; Admin Dose 75 MG; Start 01/17/17 at 09:00 Ferrous Sulfate (Feosol Liquid Cup) 300 mg BID GTB Last administered on 08:07; Admin Dose 300 MG; Start 01/17/17 at 09:00 Acetaminophen (Tylenol Liquid) 650 mg Q6H PRN GTB PAIN AND OR ELEVATED TEMP Last administered on 01/25/17 08:07; Admin Dose 650 MG; Start 01/17/17 at 01:00 Enoxaparin Sodium (Lovenox) 30 mg DAILY SC Last administered on 01/25/17 08:08 ; Admin Dose 30 MG; Start 01/18/17 at 09:00 Ciprofloxacin (Cipro) 500 mg BID@,18 PO Last administered on 01/25/17 05:27 ; Admin Dose 500 MG; Start 01/19/17 at 18:00 MANUEL PARRA NP Jan 25, 2017 15:06
[2017-01-25 19:22] VITALS: BP 93/50; RESP 19
--- NOTE | 2017-01-25 19:33 | PN ---
Date/Time of Note Date/Time of Note DATE: 01/25/17 TIME: 19:33 Assessment/Plan VTE Prophylaxis VTE Prophylaxis Intervention: other Lines/Catheters IV Catheter Type (from [facility]): Saline Lock Urinary Cath still in place: No Assessment/Plan Chief Complaint/Hosp Course IMPRESSION: The patient has: 1. Decubitus ulcer. 2. Sepsis. 3. G-tube placement. 4. Seizure disorder. 5. Anemia. 6. Cerebral palsy. 7. Incomplete database. 8 mssa plan antibiotic wound care per id home soon w home supplies ok to home per surgery waiting for all supplies Problems: Subjective 24 Hr Interval Summary Respiratory: no complaints Exam/Review of Systems Vital Signs Vitals Vital Signs Date Time Temp Pulse Resp B/P Pulse Ox O2 Delivery O2 Flow Rate FiO2 01/25/17 19:22 97.4 75 19 93/50 99 01/22/17 22:45 21 01/21/17 20:00 Room Air Intake and Output 01/24/17 01/24/17 01/25/17 15:00 23:00 07:00 Intake Total 750 ml 980 ml Output Total 700 ml 500 ml Balance 50 ml 480 ml Exam Neck: supple Respiratory: clear to auscultation Cardiovascular: regular rate and rhythm Gastrointestinal: bowel sounds (+), other (peg+), soft Results Result Diagram: 01/24/17 1616 01/23/17 0410 Medications Medications Current Medications Ascorbic Acid (Vitamin C) 1,000 mg DAILY GTB Last administered on 01/25/17 08: 07; Admin Dose 1,000 MG; Start 01/17/17 at 09:00 Collagenase (Santyl) 1 applic DAILY TOP Last administered on 01/25/17 08:09; Admin Dose 1 APPLIC; Start 01/17/17 at 09:00 Lactobacillus Acidoph/Bulgaricus (Floranex) 1 tab DAILY PEG Last administered on 01/25/17 08:08; Admin Dose 1 TAB; Start 01/17/17 at 09:00 Lamotrigine (Lamictal) 25 mg BID GTB Last administered on 01/25/17 08:08; Admin Dose 25 MG; Start 01/17/17 at 09:00 Lamotrigine (Lamictal) 150 mg BID GTB Last administered on 01/25/17 08:07; Admin Dose 150 MG; Start 01/17/17 at 09:00 Metoclopramide HCl (Reglan) 10 mg Q8 PRN GTB NAUSEA AND/OR VOMITING; Start 09/23 at 00:30 Neomycin/ Polymyxin/ Bacitracin (Neosporin Topical Oint) 1 applic BID TOP Last administered on 01/25/17 08:09; Admin Dose 1 APPLIC; Start 01/17/17 at 09:00 Phenobarbital (Luminal) 97.2 mg BID PEG Last administered on 01/25/17 08:07; Admin Dose 97.2 MG; Start 01/17/17 at 09:00 Zinc Sulfate (Zinc Sulfate) 220 mg DAILY GTB Last administered on 01/25/17 08: 07; Admin Dose 220 MG; Start 01/17/17 at 09:00 Lansoprazole (Prevacid) 30 mg DAILY@06 GTB Last administered on 01/25/17 05:27 ; Admin Dose 30 MG; Start 01/17/17 at 06:00 Topiramate (Topamax) 75 mg BID GTB Last administered on 01/25/17 08:07; Admin Dose 75 MG; Start 01/17/17 at 09:00 Ferrous Sulfate (Feosol Liquid Cup) 300 mg BID GTB Last administered on 08:07; Admin Dose 300 MG; Start 01/17/17 at 09:00 Acetaminophen (Tylenol Liquid) 650 mg Q6H PRN GTB PAIN AND OR ELEVATED TEMP Last administered on 01/25/17 08:07; Admin Dose 650 MG; Start 01/17/17 at 01:00 Enoxaparin Sodium (Lovenox) 30 mg DAILY SC Last administered on 01/25/17 08:08 ; Admin Dose 30 MG; Start 01/18/17 at 09:00 Ciprofloxacin (Cipro) 500 mg BID@,18 PO Last administered on 01/25/17 18:15 ; Admin Dose 500 MG; Start 01/19/17 at 18:00 WILIAM VAZQUEZ MD Jan 25, 2017 19:33
--- NOTE | 2017-01-25 20:28 | PN ---
Date/Time of Note Date/Time of Note DATE: 01/25/17 TIME: 20:27 Assessment/Plan Lines/Catheters IV Catheter Type (from [facility]): Saline Lock Irvin in Place (from [facility]): No Assessment/Plan Chief Complaint/Hosp Course 1. Multiple decubitus ulcerations at varying stages. Sacral ulcer s/p exc lesli 01/24. -offloading -nutritional optimization -vitamin C -local care -short term zinc 2. Dysphagia, on tube feeds. 3. Anemia without evidence of acute blood loss. Continue monitoring. 4. Thrombocytosis secondary to inflammatory process of his wounds, rule out other sources. Continue monitoring. 5. Cerebral palsy, seizures, mental retardation continue medical optimization. Thank you Problems: Subjective 24 Hr Interval Summary s/p Exc lesli 01/24. No fever, chills, vomiting, bloating, jt swelling, rash, cough, sz. Bowel function. No pyuria. Exam/Review of Systems Vital Signs Vitals Vital Signs Date Time Temp Pulse Resp B/P Pulse Ox O2 Delivery O2 Flow Rate FiO2 01/25/17 19:22 97.4 75 19 93/50 99 01/22/17 22:45 21 01/21/17 20:00 Room Air Intake and Output 01/24/17 01/24/17 01/25/17 15:00 23:00 07:00 Intake Total 750 ml 980 ml Output Total 700 ml 500 ml Balance 50 ml 480 ml Exam Free Text/Dictation GENERAL: Noncommunicative, in no acute distress. HEENT: Pupils equal, reactive. No scleral icterus. Mucous membranes are moist. NECK: Baseline rigidity, no JVD. PULMONARY: Respiratory effort. No wheezing. HEART: S1, S2 present. ABDOMEN: Soft. PEG in place. EXTREMITIES: Contracted. VASCULAR: Capillary refill is 2 seconds. NEUROLOGIC: Does not follow commands. SKIN: No rashes. No jaundice. Multiple decubitus ulcerations of the right and left ischium, left elbow and sacrum packed. LYMPHATICS: No inguinal or cervical lymphadenopathy. Results Result Diagram: 01/24/17 1616 01/23/17 0410 JASON BENNETT MD Jan 25, 2017 20:28
[2017-01-26] MEDS: LANSOPRAZOLE 30 MG CAP GTB SCH (05:12)
[2017-01-26] MEDS: CIPROFLOXACIN 500 MG TAB PO SCH (05:12)
[2017-01-26 08:34] VITALS: BP 90/54; RESP 16
[2017-01-26] MEDS: COLLAGENASE 30 GM TUBE TOP SCH (09:00)
[2017-01-26] MEDS: ASCORBIC ACID 500 MG TAB GTB SCH (09:02)
[2017-01-26] MEDS: ZINC SULFATE 220 MG CAP GTB SCH (09:02)
[2017-01-26] MEDS: LACTOBACILLUS CHEW TAB PEG SCH (09:02)
[2017-01-26] MEDS: FERROUS SULFATE 60 MG/ML 5ML CUP GTB SCH (09:02)
[2017-01-26] MEDS: LAMOTRIGINE 25 MG TAB GTB SCH (09:03)
[2017-01-26] MEDS: TOPIRAMATE 25 MG TAB GTB SCH (09:05)
[2017-01-26] MEDS: LAMOTRIGINE 100 MG TAB GTB SCH (09:05)
[2017-01-26] MEDS: PHENOBARBITAL 32.4 MG TAB PEG SCH (09:05)
[2017-01-26] MEDS: ENOXAPARIN 30 MG/0.3 ML SYG SC SCH (09:06)
[2017-01-26] MEDS: NEOMYC/POLYMYX/BACIT 30 GM OINT TOP SCH (10:00)
[2017-01-26 10:02] VITALS: PULSE 88
--- NOTE | 2017-01-26 10:10 | PN ---
Date/Time of Note Date/Time of Note DATE: 01/26/17 TIME: 10:10 Assessment/Plan Lines/Catheters IV Catheter Type (from [facility]): Saline Lock Irvin in Place (from [facility]): No Assessment/Plan Chief Complaint/Hosp Course 1. Multiple decubitus ulcerations at varying stages. Sacral ulcer s/p exc lesli 01/24. -offloading -nutritional optimization -vitamin C -local care -short term zinc 2. Dysphagia, on tube feeds. 3. Anemia without evidence of acute blood loss. Continue monitoring. 4. Thrombocytosis secondary to inflammatory process of his wounds, rule out other sources. Continue monitoring. 5. Cerebral palsy, seizures, mental retardation continue medical optimization. Thank you Problems: Subjective 24 Hr Interval Summary s/p Exc lesli 01/24. No fever, chills, vomiting, bloating, jt swelling, rash, cough, sz. Bowel function. No pyuria. Exam/Review of Systems Vital Signs Vitals Vital Signs Date Time Temp Pulse Resp B/P Pulse Ox O2 Delivery O2 Flow Rate FiO2 01/26/17 10:02 88 95 Room Air 01/26/17 08:34 97.4 16 90/54 01/22/17 22:45 21 Intake and Output 01/25/17 01/25/17 01/26/17 15:00 23:00 07:00 Intake Total 980 ml Output Total 400 ml Balance 580 ml Exam Free Text/Dictation GENERAL: Noncommunicative, in no acute distress. HEENT: Pupils equal, reactive. No scleral icterus. Mucous membranes are moist. NECK: Baseline rigidity, no JVD. PULMONARY: Respiratory effort. No wheezing. HEART: S1, S2 present. ABDOMEN: Soft. PEG in place. EXTREMITIES: Contracted. VASCULAR: Capillary refill is 2 seconds. NEUROLOGIC: Does not follow commands. SKIN: No rashes. No jaundice. Multiple decubitus ulcerations of the right and left ischium, left elbow and sacrum packed. LYMPHATICS: No inguinal or cervical lymphadenopathy. Results Result Diagram: 01/24/17 1616 01/23/17 0410 JASON BENNETT MD Jan 26, 2017 10:10
--- NOTE | 2017-01-26 12:14 | PN ---
Date/Time of Note Date/Time of Note DATE: 01/26/17 TIME: 12:12 Assessment/Plan VTE Prophylaxis VTE Prophylaxis Intervention: LMWH Lines/Catheters IV Catheter Type (from [facility] [place]): Saline Lock Urinary Cath still in place: No Assessment/Plan Chief Complaint/Hosp Course 1. Decubitus ulcer. 2. Sepsis. 3. G-tube placement. 4. Seizure disorder. 5. Anemia. 6. Cerebral palsy. Problems: Assessment/Plan 1/ Discharge pending 2. Discussed with staff GT supply to mother requested by her. Decided denied her request. It is important to change GT when needed , now it is working fully Subjective 24 Hr Interval Summary Subjective hx not possible: pt non-verbal Exam/Review of Systems Vital Signs Vitals Vital Signs Date Time Temp Pulse Resp B/P Pulse Ox O2 Delivery O2 Flow Rate FiO2 01/26/17 10:02 88 95 Room Air 01/26/17 08:34 97.4 16 90/54 01/22/17 22:45 21 Intake and Output 01/25/17 01/25/17 01/26/17 15:00 23:00 07:00 Intake Total 980 ml Output Total 400 ml Balance 580 ml Exam Constitutional: alert Psych: no complaints Head: normocephalic Eyes: nl conjunctiva ENMT: nl external ears & nose Neck: supple Respiratory: clear to auscultation Cardiovascular: regular rate and rhythm Gastrointestinal: other (GT functional), soft Genitourinary - Male: nl penis Musculoskeletal: muscle weakness Results Result Diagram: 01/24/17 1616 01/23/17 0410 Medications Medications Current Medications Ascorbic Acid (Vitamin C) 1,000 mg DAILY GTB Last administered on 01/26/17 09: 02; Admin Dose 1,000 MG; Start 01/17/17 at 09:00 Collagenase (Santyl) 1 applic DAILY TOP Last administered on 01/25/17 08:09; Admin Dose 1 APPLIC; Start 01/17/17 at 09:00 Lactobacillus Acidoph/Bulgaricus (Floranex) 1 tab DAILY PEG Last administered on 01/26/17 09:02; Admin Dose 1 TAB; Start 01/17/17 at 09:00 Lamotrigine (Lamictal) 25 mg BID GTB Last administered on 01/26/17 09:03; Admin Dose 25 MG; Start 01/17/17 at 09:00 Lamotrigine (Lamictal) 150 mg BID GTB Last administered on 01/26/17 09:05; Admin Dose 150 MG; Start 01/17/17 at 09:00 Metoclopramide HCl (Reglan) 10 mg Q8 PRN GTB NAUSEA AND/OR VOMITING; Start 09/23 at 00:30 Neomycin/ Polymyxin/ Bacitracin (Neosporin Topical Oint) 1 applic BID TOP Last administered on 01/26/17 10:00; Admin Dose 1 APPLIC; Start 01/17/17 at 09:00 Phenobarbital (Luminal) 97.2 mg BID PEG Last administered on 01/26/17 09:05; Admin Dose 97.2 MG; Start 01/17/17 at 09:00 Zinc Sulfate (Zinc Sulfate) 220 mg DAILY GTB Last administered on 01/26/17 09: 02; Admin Dose 220 MG; Start 01/17/17 at 09:00 Lansoprazole (Prevacid) 30 mg DAILY@06 GTB Last administered on 01/26/17 05:12 ; Admin Dose 30 MG; Start 01/17/17 at 06:00 Topiramate (Topamax) 75 mg BID GTB Last administered on 01/26/17 09:05; Admin Dose 75 MG; Start 01/17/17 at 09:00 Ferrous Sulfate (Feosol Liquid Cup) 300 mg BID GTB Last administered on 09:02; Admin Dose 300 MG; Start 01/17/17 at 09:00 Acetaminophen (Tylenol Liquid) 650 mg Q6H PRN GTB PAIN AND OR ELEVATED TEMP Last administered on 01/25/17 08:07; Admin Dose 650 MG; Start 01/17/17 at 01:00 Enoxaparin Sodium (Lovenox) 30 mg DAILY SC Last administered on 01/26/17 09:06 ; Admin Dose 30 MG; Start 01/18/17 at 09:00 Ciprofloxacin (Cipro) 500 mg BID@06,18 PO Last administered on 01/26/17 05:12 ; Admin Dose 500 MG; Start 01/19/17 at 18:00 RICARDA BECKFORD Jan 26, 2017 12:14
--- NOTE | 2017-01-26 15:11 | CONS ---
Date/Time of Note Date/Time of Note DATE: 01/26/17 TIME: 15:10 Assessment/Plan Assessment/Plan Chief Complaint/Hosp Course SUBJECTIVE: No acute changes, lying comfortably in bed. No fevers. MICROBIOLOGY: Wound culture growing oxacillin-sensitive Staphylococcus aureus susceptible to Levaquin, clindamycin, Ancef, Cipro. INDWELLINGS: PEG and trach. PHYSICAL EXAMINATION: GENERAL: Chronically ill-appearing, young debilitated man, who is lying comfortably in bed. HEENT: Head atraumatic, normocephalic. Sclerae anicteric. Buccal mucosa dry. NECK: Supple. CHEST: Rise symmetrical. Breath sounds diminished to bases. HEART: S1, S2. ABDOMEN: Soft, bowel sounds present. EXTREMITIES: Without cyanosis. Contractures. SKIN: With multiple decubiti. ASSESSMENT: 1. Oxacillin-sensitive Staphylococcus aureus sacral wound. 2. Cachexia. 3. Anemia. 4. Dysphagia. 5. History of cerebral palsy and mental retardation. PLAN: Remains stable, completing abx, continue local wound care per surgical recommendations, pending dc. [facility] staff Problems: Consultation Date/Type/Reason Admit Date/Time Jan 16, 2017 at 23:35 Type of Consultation: ID Exam/Review of Systems Vital Signs Vitals Vital Signs Date Time Temp Pulse Resp B/P Pulse Ox O2 Delivery O2 Flow Rate FiO2 01/26/17 10:02 88 95 Room Air 01/26/17 08:34 97.4 16 90/54 01/22/17 22:45 21 Intake and Output 01/25/17 01/25/17 01/26/17 15:00 23:00 07:00 Intake Total 980 ml Output Total 400 ml Balance 580 ml Results Result Diagram: 01/24/17 1616 01/23/17 0410 Medications Medications Current Medications Ascorbic Acid (Vitamin C) 1,000 mg DAILY GTB Last administered on 01/26/17 09: 02; Admin Dose 1,000 MG; Start 01/17/17 at 09:00 Collagenase (Santyl) 1 applic DAILY TOP Last administered on 01/25/17 08:09; Admin Dose 1 APPLIC; Start 01/17/17 at 09:00 Lactobacillus Acidoph/Bulgaricus (Floranex) 1 tab DAILY PEG Last administered on 01/26/17 09:02; Admin Dose 1 TAB; Start 01/17/17 at 09:00 Lamotrigine (Lamictal) 25 mg BID GTB Last administered on 01/26/17 09:03; Admin Dose 25 MG; Start 01/17/17 at 09:00 Lamotrigine (Lamictal) 150 mg BID GTB Last administered on 01/26/17 09:05; Admin Dose 150 MG; Start 01/17/17 at 09:00 Metoclopramide HCl (Reglan) 10 mg Q8 PRN GTB NAUSEA AND/OR VOMITING; Start 09/23 at 00:30 Neomycin/ Polymyxin/ Bacitracin (Neosporin Topical Oint) 1 applic BID TOP Last administered on 01/26/17 10:00; Admin Dose 1 APPLIC; Start 01/17/17 at 09:00 Phenobarbital (Luminal) 97.2 mg BID PEG Last administered on 01/26/17 09:05; Admin Dose 97.2 MG; Start 01/17/17 at 09:00 Zinc Sulfate (Zinc Sulfate) 220 mg DAILY GTB Last administered on 01/26/17 09: 02; Admin Dose 220 MG; Start 01/17/17 at 09:00 Lansoprazole (Prevacid) 30 mg DAILY@06 GTB Last administered on 01/26/17 05:12 ; Admin Dose 30 MG; Start 01/17/17 at 06:00 Topiramate (Topamax) 75 mg BID GTB Last administered on 01/26/17 09:05; Admin Dose 75 MG; Start 01/17/17 at 09:00 Ferrous Sulfate (Feosol Liquid Cup) 300 mg BID GTB Last administered on 09:02; Admin Dose 300 MG; Start 01/17/17 at 09:00 Acetaminophen (Tylenol Liquid) 650 mg Q6H PRN GTB PAIN AND OR ELEVATED TEMP Last administered on 01/25/17 08:07; Admin Dose 650 MG; Start 01/17/17 at 01:00 Enoxaparin Sodium (Lovenox) 30 mg DAILY SC Last administered on 01/26/17 09:06 ; Admin Dose 30 MG; Start 01/18/17 at 09:00 Ciprofloxacin (Cipro) 500 mg BID@,18 PO Last administered on 01/26/17 05:12 ; Admin Dose 500 MG; Start 01/19/17 at 18:00 MANUEL PARRA NP Jan 26, 2017 15:11
== END 2017-01-26 15:19 | disposition home health service (06) | DRG 570 ==
LOC: PP2 23:35
PROVIDERS: ADMIT Internal Medicine Nephrology; ATTEND Internal Medicine Nephrology
PROC: 0JB70ZZ Excision of Back Subcutaneous Tissue and Fascia, Open Approach (ICD-10-PCS; principal; 2017-01-24)
DX: L89.154 Pressure ulcer of sacral region, stage 4 (principal); L89.153 Pressure ulcer of sacral region, stage 3; E44.0 Moderate protein-calorie malnutrition; I95.9 Hypotension, unspecified; L89.223 Pressure ulcer of left hip, stage 3; L89.020 Pressure ulcer of left elbow, unstageable; L89.510 Pressure ulcer of right ankle, unstageable; R13.10 Dysphagia, unspecified; Z68.1 Body mass index [BMI] 19.9 or less, adult; G80.9 Cerebral palsy, unspecified; F79 Unspecified intellectual disabilities; Z93.1 Gastrostomy status; G40.909 Epilepsy, unspecified, not intractable, without status epilepticus; D64.9 Anemia, unspecified; L89.214 Pressure ulcer of right hip, stage 4; B95.61 Methicillin susceptible Staphylococcus aureus infection as the cause of diseases classified elsewhere; D47.3 Essential (hemorrhagic) thrombocythemia
CPT/HCPCS: 80048; 80202; 82565; 84520; 85025; 87070; 87081; 94664; J0696; J1650; J3370

== ENCOUNTER 2018-10-14 21:50 | Inpatient (IN) | payer OTHER ==
[~2018-10-14 21:50] MED LIST changes: +ACID1TAB14 G-TUBE; +CIPR500T4 PO; +LAMO100T83 GTB; -LAMO150T15 GTB; +LAMO150T3 GTB; +METO10TA3 GTB; -NEOM28OI TOP; +NEOM28OI2 TOP; -TOPI-44 GTB; +TOPI25TA PEG; +TOPI25TA10 GTB; -TOPI25TA38 PEG
[2018-10-15] VITALS (8 sets, daily range): BP systolic 83–109; BP diastolic 51–68; PULSE 53–77; RESP 14–18
[2018-10-15] MEDS ORDERED: [UNRECOGNIZED DRUG - CODE] G-TUBE (02:53)
[2018-10-15] MEDS ORDERED: FER325 G-TUBE (02:53)
[2018-10-15] MEDS ORDERED: ACET160O41 PO (02:53)
[2018-10-15] MEDS ORDERED: ALBU2.5V3 NEB (02:53)
[2018-10-15] MEDS ORDERED: MAGN400O19 G-TUBE (02:53)
[2018-10-15] MEDS ORDERED: ONDA4TAB14 G-TUBE (02:53)
[2018-10-15] MEDS ORDERED: POLY17PO6 G-TUBE (02:53)
[2018-10-15] MEDS ORDERED: OMEP20CA16 G-TUBE (02:53)
[2018-10-15] MEDS ORDERED: LEVO750T8 G-TUBE (02:53)
[2018-10-15] MEDS ORDERED: MULT9LIQ4 GTB (02:53)
[2018-10-15] MEDS ORDERED: IBUP100O28 G-TUBE (02:53)
[2018-10-15] MEDS ORDERED: FAMO20TA18 G-TUBE (02:53)
[2018-10-15] MEDS ORDERED: MORP15TA92 G-TUBE (02:53)
[2018-10-15] MEDS ORDERED: ONDANSETRON (ODT) 4 MG TAB ODT PRN (03:30)
[2018-10-15] MEDS ORDERED: ACETAMINOPHEN 650MG/20.3ML CUP GTB PRN (03:30)
[2018-10-15] MEDS ORDERED: ALBUTEROL/IPRATROPIUM (NEB) 3 ML AMP HHN PRN (03:30)
[2018-10-15] MEDS: SOD CHLORIDE 0.9% 1,000 ML IV SCH ×2 (03:58→22:50)
[2018-10-15] MEDS: IBUPROFEN LIQUID (PED) 20 MG/ML CUP GTB SCH ×3 (06:22→18:43)
[2018-10-15] MEDS: ASCORBIC ACID 500 MG TAB GTB SCH (08:25)
[2018-10-15] MEDS: FERROUS SULFATE 60 MG/ML 5ML CUP GTB SCH ×2 (08:25→21:58)
[2018-10-15] MEDS: LAMOTRIGINE 25 MG TAB GTB SCH ×2 (08:25→21:57)
[2018-10-15] MEDS: POLYETHYLENE GLYCOL 17 GM PACKET GTB SCH (08:25)
[2018-10-15] MEDS: LAMOTRIGINE 100 MG TAB GTB SCH ×2 (08:25→21:57)
[2018-10-15] MEDS: LEVOFLOXACIN 500MG/D5W (PMX) 100 ML IVPB SCH (08:25)
[2018-10-15] MEDS: TOPIRAMATE 25 MG TAB GTB SCH ×2 (08:26→21:57)
[2018-10-15] MEDS: FAMOTIDINE 20 MG TAB GTB SCH ×2 (08:26→21:58)
[2018-10-15] MEDS ORDERED: morphine LIQ (20 MG/ML PO SYG) GTB PRN (09:00)
[2018-10-15] MEDS ORDERED: INFLUENZA VIRUS VACCINE 0.5 ML (DISPENSING) IM* ONE (10:00)
[2018-10-15] MEDS: ZINC SULFATE 220 MG CAP GTB SCH (10:36)
[2018-10-15] MEDS: PHENOBARBITAL 32.4 MG TAB GTB SCH ×2 (10:36→21:58)
--- NOTE | 2018-10-15 14:49 | QN ---
Documentation Comment seen and exmained NAVNEET REINOSO MD Oct 15, 2018 14:49
[2018-10-15] MEDS ORDERED: ENOXAPARIN 40 MG/0.4 ML SYG SC ONE (15:00)
--- NOTE | 2018-10-15 15:59 | HP ---
DATE OF ADMISSION: 10/15/2018 REASON FOR ADMISSION: Transferred from [facility] due to pneumonia. HISTORY OF PRESENTING ILLNESS: This is a 28-year-old male with a past medical history of mental bladimir rdation, history of asthma, aspiration pneumonia, cerebral palsy, epilepsy, dysphagia status post G-t ube, quadriplegia, protein energy malnutrition, who went to [facility] after he was br ought in with mother for cough and shortness of breath for past 1 to 2 days. At that time, the patie nt had a chest x-ray that had increased density in the left lower lobe considered atelectasis infiltr ate. The patient was discharged home with antibiotics. However when patient went home according to the mother, the fever and shortness of breath persisted. He was also having some diarrhea and he was brought into the emergency room for further evaluation and was sent in due to insurance reasons. Th ere, vital signs show temperature of 36.4, pulse 82, respirations 22, blood pressure 96/64. Labs viviana wed white count 9.5, hemoglobin 13.3, platelet count of 9.3, BUN of 19, creatinine 0.48. PAST MEDICAL HISTORY: 1. Cerebral palsy. 2. G-tube placement, dysphagia. 3. Seizure disorder. 4. Anemia. 5. Dyspepsia. 6. Protein energy malnutrition. 7. Bedbound. 8. Asthma. 9. History of debridement of the wound in the past. 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 ALLERGIES: VALPROATE. PAST SURGICAL HISTORY: G-tube placement and multiple wound debridements. SOCIAL HISTORY: Lives with the mother. FAMILY HISTORY: Could not be obtained. REVIEW OF SYSTEMS: Could not be obtained as the patient is nonverbal. PHYSICAL EXAMINATION: VITAL SIGNS: Currently, blood pressure 97/60, afebrile, heart rate 53, respirations 14. GENERAL: The patient is basically nonverbal, lying on the bed, curled up in 1 position. HEENT: Pupils are equal, round and reactive to light. NECK: Supple. HEART: Regular rate and rhythm. LUNGS: Decreased breath sounds bilaterally. ABDOMEN: G-tube present. EXTREMITIES: Contractures present. Thin extremities. LABORATORY DATA: White count 8.5, hemoglobin 11.3, platelet count 195. BMP: Sodium 146, potassium 3.6, bicarbonate is 21, BUN of 13 and creatinine 0.37. DIAGNOSTIC DATA: Chest x-ray from outside hospital showed left lower lobe infiltrate. ASSESSMENT AND PLAN: This is a 28-year-old male who presented with: 1. Fever, shortness of breath, cough, likely secondary to pneumonia and left lower lobe infiltrate. 2. Mild hypernatremia. 3. Cerebral palsy, bedbound. 4. History of asthma. 5. History of decubitus ulcer of the buttocks. 6. Epilepsy. 7. Dysphagia with a G-tube. 8. Spastic quadriplegia. 9. Protein energy malnutrition. PLAN: At this period of time, the patient is admitted to med/surg. We will continue the patient on G-tube feeding, IV fluids, IV antibiotics with Levaquin. We will also get a chest x-ray. All the ho me medications will be resumed. The patient will also be started on breathing treatments. The rest of the treatment will depend on the patient's hospitalization course. Dictated By: NAVNEET ORANTES/CHRIS Conf#: [id number] DID#: [id number] CC: WILIAM VAZQUEZ MD;*EndCC*
[2018-10-15] MEDS: ENOXAPARIN 40 MG/0.4 ML SYG SC SCH (17:10)
[2018-10-15] MEDS: ALBUTEROL/IPRATROPIUM (NEB) 3 ML AMP HHN SCH ×2 (18:05→20:57)
[2018-10-15] MEDS ORDERED: LORAZEPAM 4 MG/ML VIAL IV PRN (20:00)
[2018-10-15] MEDS ORDERED: SOD CHLORIDE 0.9% 500 ML IV ONE (21:30)
[2018-10-16] MEDS: IBUPROFEN LIQUID (PED) 20 MG/ML CUP GTB SCH ×4 (00:06→17:48)
[2018-10-16 02:58] VITALS: BP 88/50; PULSE 88; RESP 16
[2018-10-16 03:08] VITALS: BP 107/60; PULSE 70
[2018-10-16 07:58] VITALS: PULSE 67; RESP 14
[2018-10-16] MEDS: TOPIRAMATE 25 MG TAB GTB SCH ×2 (08:51→20:29)
[2018-10-16] MEDS: LEVOFLOXACIN 500MG/D5W (PMX) 100 ML IVPB SCH (08:51)
[2018-10-16] MEDS: LAMOTRIGINE 100 MG TAB GTB SCH ×2 (08:52→20:29)
[2018-10-16] MEDS: ZINC SULFATE 220 MG CAP GTB SCH (08:52)
[2018-10-16] MEDS: PHENOBARBITAL 32.4 MG TAB GTB SCH ×2 (08:52→20:30)
[2018-10-16] MEDS: LAMOTRIGINE 25 MG TAB GTB SCH ×2 (08:52→20:29)
[2018-10-16] MEDS: FERROUS SULFATE 60 MG/ML 5ML CUP GTB SCH ×2 (08:52→20:29)
[2018-10-16] MEDS: FAMOTIDINE 20 MG TAB GTB SCH ×2 (08:52→20:29)
[2018-10-16] MEDS: ASCORBIC ACID 500 MG TAB GTB SCH (08:52)
[2018-10-16] MEDS: ENOXAPARIN 40 MG/0.4 ML SYG SC SCH (08:53)
[2018-10-16] MEDS: POLYETHYLENE GLYCOL 17 GM PACKET GTB SCH (09:00)
[2018-10-16] MEDS: ALBUTEROL/IPRATROPIUM (NEB) 3 ML AMP HHN SCH ×4 (09:32→20:04)
--- NOTE | 2018-10-16 12:21 | PN ---
Date/Time of Note Date/Time of Note DATE: 10/16/18 TIME: 12:18 Assessment/Plan VTE Prophylaxis Risk score (from [facility])>0 risk: 5 SCD applied (from [facility] [place]): No SCD contraindicated: low risk/ambulating Pharmacological prophylaxis: NA/contraindicated Pharm contraindication: low risk/ambulating Lines/Catheters IV Catheter Type (from [facility]): Peripheral IV Urinary Cath still in place: No Assessment/Plan Hospital Course ASSESSMENT AND PLAN: This is a 28-year-old male who presented with: 1. Fever, shortness of breath, cough, likely secondary to pneumonia and left lower lobe infiltrate. 2. Mild hypernatremia. 3. Cerebral palsy, bedbound. 4. History of asthma. 5. History of decubitus ulcer of the buttocks. 6. Epilepsy.? seizure episode however not noted by nursing staff 7. Dysphagia with a G-tube. 8. Spastic quadriplegia. 9. Protein energy malnutrition. Plan - cw iv levaquin - cw nebs - GI/DVT prophylaxsis - cw g tube feeding - cw lamictal/ phenobarb/topamax - monior for seizures - ativan prn - neuro consult Result Diagram: 10/15/18 0600 10/15/18 0600 Subjective 24 Hr Interval Summary Free Text/Dictation per mother yesterday was noted to have seizure episode but not noted by nursing staff no more seizures Exam/Review of Systems Vital Signs Vitals Vital Signs Date Temp Pulse Resp B/P (MAP) Pulse Ox O2 O2 Flow FiO2 Time Delivery Rate 10/16/18 60 18 96 21 09:32 10/16/18 97.5 07:58 Intake and Output 10/15/18 10/15/18 10/16/18 1515:00 23:00 07:00 IntakeIntake Total 1250 ml 300 ml BalanceBalance 1250 ml 300 ml Exam GENERAL: The patient is basically nonverbal, lying on the bed, curled up in 1 position. HEENT: Pupils are equal, round and reactive to light. NECK: Supple. HEART: Regular rate and rhythm. LUNGS: Decreased breath sounds bilaterally. ABDOMEN: G-tube present. EXTREMITIES: Contractures present. Thin extremities. Medications Medications Current Medications Acetaminophen (Tylenol Liquid) 160 mg Q4H PRN GTB MILD PAIN(1-3) OR TEMP>38C; Start 10/15/18 at 03:30 Ascorbic Acid (Vitamin C) 1,000 mg DAILY GTB Last administered on 10/16/18 08:52; Admin Dose 1,000 MG; Start 10/15/18 at 09:00 Famotidine (Pepcid) 20 mg BID GTB Last administered on 10/16/18 08:52; Admin Dose 20 MG; Start 10/15/18 at 09:00 Ferrous Sulfate (Feosol Liquid Cup) 300 mg BID GTB Last administered on 08:52; Admin Dose 300 MG; Start 10/15/18 at 09:00 Ibuprofen (Motrin Liquid (Ped)) 100 mg Q6 GTB Last administered on 10/16/18 05:52; Admin Dose 100 MG; Start 10/15/18 at 06:00 Morphine Sulfate (Roxanol) 15 mg Q12 PRN GTB SEVERE PAIN LEVEL 7-10; Start 10/15/18 at 09:00 Ondansetron HCl (Zofran Odt) 4 mg Q6H PRN ODT NAUSEA AND/OR VOMITING; Start 10/15/18 at 03:30 Phenobarbital (Luminal) 97.2 mg BID GTB Last administered on 10/16/18 08:52; Admin Dose 97.2 MG; Start 10/15/18 at 09:00 Polyethylene Glycol (Miralax) 17 gm DAILY GTB Last administered on 10/15/18 08:25; Admin Dose 17 GM; Start 10/15/18 at 09:00 Topiramate (Topamax) 75 mg BID GTB Last administered on 10/16/18 08:51; Admin Dose 75 MG; Start 10/15/18 at 09:00 Zinc Sulfate (Zinc Sulfate) 220 mg DAILY GTB Last administered on 10/16/18 08:52; Admin Dose 220 MG; Start 10/15/18 at 09:00 Albuterol/ Ipratropium (Duoneb) 3 ml Q6H RESP THERAPY PRN HHN SHORTNESS OF BREATH; Start 10/15/18 at 03:30 Levofloxacin/ Dextrose 100 ml @ 100 mls/hr Q24H IVPB Last administered on 10/16/18 08:51; Admin Dose 100 MLS/HR; Start 10/15/18 at 09:00 Sodium Chloride 1,000 ml @ 50 mls/hr Q20H IV Last administered on 10/15/18 22:50; Admin Dose 50 MLS/HR; Start 10/15/18 at 03:30 Lamotrigine (Lamictal) 100 mg BID GTB Last administered on 10/16/18 08:52; Admin Dose 100 MG; Start 10/15/18 at 09:00 Lamotrigine (Lamictal) 75 mg BID GTB Last administered on 10/16/18 08:52; Admin Dose 75 MG; Start 10/15/18 at 09:00 Albuterol/ Ipratropium (Duoneb) 3 ml Q4HWA RESP THERAPY HHN Last administered on 10/16/18 09:32; Admin Dose 3 ML; Start 10/15/18 at 17:00 Enoxaparin Sodium (Lovenox) 40 mg DAILY SC Last administered on 10/16/18 08:53; Admin Dose 40 MG; Start 10/15/18 at 16:30 Lorazepam (Ativan) 1 mg Q6H PRN IV For seizures; Start 10/15/18 at 20:00 Sodium Chloride (Nacl 3% For Inhalation) 5 ml ONCE ONCE NEB ; Start 10/16/18 at 13:00; Stop 10/16/18 at 13:01 NAVNEET REINOSO MD Oct 16, 2018 12:21
[2018-10-16] MEDS ORDERED: NACL 3% FOR INHALATION 15 ML NEBU NEB ONE (13:00)
--- NOTE | 2018-10-16 13:34 | CONS ---
Assessment/Plan Assessment/Plan Hospital Course A: 28 M c/ Hx of CP c/b epilepsy...and other comorbidities, who is admitted for evaluation and management of respiratory Sx.. Neurology is consulted for epilepsy management; specifically, is concern for a recent breakthrough seizure. Intercurrent infection could certainly be lowering his seizure threshold.. P: Add UA Add Phenobarbital level Continue Phb 97.2mg bid for now, pending the above; Titrate prn to goal ~30 Continue Lamictal 175 mg bid for now Continue Topamax 75 mg bid Ativan iv prn prolonged seizure (> 5 min) or cluster (> 2 seizures in 24 hrs) Continued medical management per primary Will follow clinically Result Diagram: 10/15/18 0600 10/15/18 06 Consultation Date/Type/Reason Admit Date/Time Oct 15, 2018 at 00:03 Type of Consult Neurology Reason for Consultation seizure Requesting Provider: NAVNEET REINOSO MD Date/Time of Note DATE: 10/16/18 TIME: 13:28 Hx of Present Illness 28 M c/ Hx of CP c/b epilepsy...and other comorbidities, who is admitted for evaluation of respiratory Sx.. Neurology is consulted for epilepsy management. Specifically, there was recent concern for a breakthrough seizure. He is unable to contribute a Hx.. It is elsewhere noted: This is a 28-year-old male with a past medical history of mental retardation, history of asthma, aspiration pneumonia, cerebral palsy, epilepsy, dysphagia status post G-tube, quadriplegia, protein energy malnutrition, who went to [facility] after he was brought in with mother for cough and shortness of breath for past 1 to 2 days. At that time, the patient had a chest x-ray that had increased density in the left lower lobe considered atelectasis infiltrate. The patient was discharged home with antibiotics. However when patient went home according to the mother, the fever and shortness of breath persisted. He was also having some diarrhea and he was brought into the emergency room for further evaluation and was sent in due to insurance reasons. There, vital signs show temperature of 36.4, pulse 82, respirations 22, blood pressure 96/64. Labs showed white count 9.5, hemoglobin 13.3, platelet count of 9.3, BUN of 19, creatinine 0.48. Subjective hx not possible: pt non-verbal Exam/Review of Systems Vital Signs Vitals Vital Signs Date Temp Pulse Resp B/P (MAP) Pulse Ox O2 O2 Flow FiO2 Time Delivery Rate 10/16/18 60 18 96 21 09:32 10/16/18 97.5 07:58 Intake and Output 10/15/18 10/15/18 10/16/18 1515:00 23:00 07:00 IntakeIntake Total 1250 ml 300 ml BalanceBalance 1250 ml 300 ml Exam PE: Gen Appearance: No Apparent Distress HEENT: Dysmorphic Cardiovascular: Regular rate Abdomen: Soft Extremities: Dry NE: The patient was alert, able to fix and follow, though nonverbal and unable to follow commands. Cranial nerve examination was limited by mental status. Pupils were equal and reactive to light. There was no afferent pupillary defect. Funduscopic examination was limited. Face was grossly symmetric, w/ present corneal and cough reflexes. Tone was somewhat increased on the left. Muscle bulk was decreased throughout. I did not see fasciculations. The patient was weak diffusely, able to move his limbs spontaneously, R>L.. Coordination and gait testing was limited by mental status. Arm and leg reflexes were brisk. Carrizales's sign was absent. Plantar responses were extensor.. Medications Medications Current Medications Acetaminophen (Tylenol Liquid) 160 mg Q4H PRN GTB MILD PAIN(1-3) OR TEMP>38C; Start 10/15/18 at 03:30 Ascorbic Acid (Vitamin C) 1,000 mg DAILY GTB Last administered on 10/16/18at 08:52; Admin Dose 1,000 MG; Start 10/15/18 at 09:00 Famotidine (Pepcid) 20 mg BID GTB Last administered on 10/16/18at 08:52; Admin Dose 20 MG; Start 10/15/18 at 09:00 Ferrous Sulfate (Feosol Liquid Cup) 300 mg BID GTB Last administered on 10/16/18at 08:52; Admin Dose 300 MG; Start 10/15/18 at 09:00 Ibuprofen (Motrin Liquid (Ped)) 100 mg Q6 GTB Last administered on 10/16/18at 05:52; Admin Dose 100 MG; Start 10/15/18 at 06:00 Morphine Sulfate (Roxanol) 15 mg Q12 PRN GTB SEVERE PAIN LEVEL 7-10; Start 10/15/18 at 09:00 Ondansetron HCl (Zofran Odt) 4 mg Q6H PRN ODT NAUSEA AND/OR VOMITING; Start 10/15/18 at 03:30 Phenobarbital (Luminal) 97.2 mg BID GTB Last administered on 10/16/18 08:52; Admin Dose 97.2 MG; Start 10/15/18 at 09:00 Polyethylene Glycol (Miralax) 17 gm DAILY GTB Last administered on 10/15/18 08:25; Admin Dose 17 GM; Start 10/15/18 at 09:00 Topiramate (Topamax) 75 mg BID GTB Last administered on 10/16/18 08:51; Admin Dose 75 MG; Start 10/15/18 at 09:00 Zinc Sulfate (Zinc Sulfate) 220 mg DAILY GTB Last administered on 10/16/18 08:52; Admin Dose 220 MG; Start 10/15/18 at 09:00 Albuterol/ Ipratropium (Duoneb) 3 ml Q6H RESP THERAPY PRN HHN SHORTNESS OF BREATH; Start 10/15/18 at 03:30 Levofloxacin/ Dextrose 100 ml @ 100 mls/hr Q24H IVPB Last administered on 10/16/18 08:51; Admin Dose 100 MLS/HR; Start 10/15/18 at 09:00 Lamotrigine (Lamictal) 100 mg BID GTB Last administered on 10/16/18 08:52; Admin Dose 100 MG; Start 10/15/18 at 09:00 Lamotrigine (Lamictal) 75 mg BID GTB Last administered on 10/16/18 08:52; Admin Dose 75 MG; Start 10/15/18 at 09:00 Albuterol/ Ipratropium (Duoneb) 3 ml Q4HWA RESP THERAPY HHN Last administered on 10/16/18 09:32; Admin Dose 3 ML; Start 10/15/18 at 17:00 Enoxaparin Sodium (Lovenox) 40 mg DAILY SC Last administered on 10/16/18 08:53; Admin Dose 40 MG; Start 10/15/18 at 16:30 Lorazepam (Ativan) 1 mg Q6H PRN IV For seizures; Start 10/15/18 at 20:00 Past Medical History reviewed Medications Current Medications Acetaminophen (Tylenol Liquid) 160 mg Q4H PRN GTB MILD PAIN(1-3) OR TEMP>38C; Start 10/15/18 at 03:30 Ascorbic Acid (Vitamin C) 1,000 mg DAILY GTB Last administered on 10/16/18 08:52; Admin Dose 1,000 MG; Start 10/15/18 at 09:00 Famotidine (Pepcid) 20 mg BID GTB Last administered on 10/16/18 08:52; Admin Dose 20 MG; Start 10/15/18 at 09:00 Ferrous Sulfate (Feosol Liquid Cup) 300 mg BID GTB Last administered on 10/16/18 08:52; Admin Dose 300 MG; Start 10/15/18 at 09:00 Ibuprofen (Motrin Liquid (Ped)) 100 mg Q6 GTB Last administered on 10/16/18 05:52; Admin Dose 100 MG; Start 10/15/18 at 06:00 Morphine Sulfate (Roxanol) 15 mg Q12 PRN GTB SEVERE PAIN LEVEL 7-10; Start 10/15/18 at 09:00 Ondansetron HCl (Zofran Odt) 4 mg Q6H PRN ODT NAUSEA AND/OR VOMITING; Start 10/15/18 at 03:30 Phenobarbital (Luminal) 97.2 mg BID GTB Last administered on 10/16/18 08:52; Admin Dose 97.2 MG; Start 10/15/18 at 09:00 Polyethylene Glycol (Miralax) 17 gm DAILY GTB Last administered on 10/15/18 08:25; Admin Dose 17 GM; Start 10/15/18 at 09:00 Topiramate (Topamax) 75 mg BID GTB Last administered on 10/16/18 08:51; Admin Dose 75 MG; Start 10/15/18 at 09:00 Zinc Sulfate (Zinc Sulfate) 220 mg DAILY GTB Last administered on 10/16/18 08:52; Admin Dose 220 MG; Start 10/15/18 at 09:00 Albuterol/ Ipratropium (Duoneb) 3 ml Q6H RESP THERAPY PRN HHN SHORTNESS OF BREATH; Start 10/15/18 at 03:30 Levofloxacin/ Dextrose 100 ml @ 100 mls/hr Q24H IVPB Last administered on 10/16/18 08:51; Admin Dose 100 MLS/HR; Start 10/15/18 at 09:00 Lamotrigine (Lamictal) 100 mg BID GTB Last administered on 10/16/18 08:52; Admin Dose 100 MG; Start 10/15/18 at 09:00 Lamotrigine (Lamictal) 75 mg BID GTB Last administered on 10/16/18 08:52; Admin Dose 75 MG; Start 10/15/18 at 09:00 Albuterol/ Ipratropium (Duoneb) 3 ml Q4HWA RESP THERAPY HHN Last administered on 10/16/18 09:32; Admin Dose 3 ML; Start 10/15/18 at 17:00 Enoxaparin Sodium (Lovenox) 40 mg DAILY SC Last administered on 10/16/18 08:53; Admin Dose 40 MG; Start 10/15/18 at 16:30 Lorazepam (Ativan) 1 mg Q6H PRN IV For seizures; Start 10/15/18 at 20:00 Allergies: Coded Allergies: divalproex sodium (Verified Allergy, Unknown, 07/27/14) unknown Past Surgical History reviewed Social History Smoking Status: Never smoker ASHLEY ARAGON Oct 16, 2018 13:34
[2018-10-16 14:49] VITALS: BP 97/68; PULSE 73; RESP 14
[2018-10-16 19:44] VITALS: BP 90/57; PULSE 82; RESP 15
[2018-10-16] MEDS: BALSAM PERU/CASTOR OIL 60 GM TUBE TOP SCH (20:31)
[2018-10-16] MEDS: COLLAGENASE 5 GM (UD JAR) TOP SCH (20:32)
[2018-10-17] MEDS: IBUPROFEN LIQUID (PED) 20 MG/ML CUP GTB SCH ×4 (00:23→18:23)
[2018-10-17 01:26] VITALS: BP 102/58; PULSE 76; RESP 16
[2018-10-17 07:48] VITALS: BP 94/59; PULSE 78; RESP 18
[2018-10-17] MEDS: ALBUTEROL/IPRATROPIUM (NEB) 3 ML AMP HHN SCH ×4 (09:33→20:59)
[2018-10-17] MEDS: LAMOTRIGINE 25 MG TAB GTB SCH ×2 (10:02→20:09)
[2018-10-17] MEDS: LAMOTRIGINE 100 MG TAB GTB SCH ×2 (10:02→20:09)
[2018-10-17] MEDS: COLLAGENASE 5 GM (UD JAR) TOP SCH ×2 (10:02→20:08)
[2018-10-17] MEDS: FERROUS SULFATE 60 MG/ML 5ML CUP GTB SCH ×2 (10:02→20:08)
[2018-10-17] MEDS: TOPIRAMATE 25 MG TAB GTB SCH ×2 (10:02→20:09)
[2018-10-17] MEDS: POLYETHYLENE GLYCOL 17 GM PACKET GTB SCH (10:03)
[2018-10-17] MEDS: FAMOTIDINE 20 MG TAB GTB SCH ×2 (10:03→20:09)
[2018-10-17] MEDS: BALSAM PERU/CASTOR OIL 60 GM TUBE TOP SCH ×2 (10:03→20:10)
[2018-10-17] MEDS: PHENOBARBITAL 32.4 MG TAB GTB SCH ×2 (10:03→21:49)
[2018-10-17] MEDS: ASCORBIC ACID 500 MG TAB GTB SCH (10:03)
[2018-10-17] MEDS: ZINC SULFATE 220 MG CAP GTB SCH (10:03)
[2018-10-17] MEDS: LEVOFLOXACIN 500MG/D5W (PMX) 100 ML IVPB SCH (10:04)
[2018-10-17] MEDS: ENOXAPARIN 40 MG/0.4 ML SYG SC SCH (10:06)
[2018-10-17 14:00] VITALS: BP 90/51; PULSE 89; RESP 18
--- NOTE | 2018-10-17 14:06 | PN ---
Date/Time of Note Date/Time of Note DATE: 10/17/18 TIME: 14:04 Assessment/Plan VTE Prophylaxis Risk score (from [facility] [place]0 risk: 4 SCD applied (from [facility] [place]): No SCD contraindicated: low risk/ambulating Pharmacological prophylaxis: NA/contraindicated, LMWH Pharm contraindication: other Lines/Catheters IV Catheter Type (from [facility]): Peripheral IV Urinary Cath still in place: No Assessment/Plan Hospital Course ASSESSMENT AND PLAN: This is a 28-year-old male who presented with: 1. Fever, shortness of breath, cough, likely secondary to pneumonia and left lower lobe infiltrate.cx+GNR 2. Mild hypernatremia.resolved 3. Cerebral palsy, bedbound. 4. History of asthma. 5. History of decubitus ulcer of the buttocks. 6. Epilepsy.? seizure episode however not noted by nursing staff> + 7. Dysphagia with a G-tube. 8. Spastic quadriplegia. 9. Protein energy malnutrition. Plan - STILL Cngested> switch to cefepime for pseudomonas coverage - cw nebs - GI/DVT prophylaxsis - cw g tube feeding - cw lamictal/ phenobarb/topamax> neuro to adjust phenobarb levels - monitor for seizures - ativan prn - Repeat Xray Result Diagram: 10/17/18 0610 10/17/18 1226 Results 24hrs Laboratory Tests Test 10/17/18 05:45 10/17/18 06:10 10/17/18 08:23 10/17/18 12:26 Urine Color YELLOW Urine Clarity SLIGHTLY CLOUDY A Urine pH 8.0 Urine Specific 1.010 [place] Urine Ketones NEGATIVE Urine Nitrite NEGATIVE Urine Bilirubin NEGATIVE Urine NEGATIVE Urobilinogen Urine Leukocyte NEGATIVE Esterase Urine Microscopic 0 RBC Urine Microscopic 4 WBC Urine Amorphous FEW A Crystals Urine Bacteria FEW A Urine Mucus FEW A Urine Hemoglobin NEGATIVE Urine Glucose NEGATIVE Urine Total NEGATIVE Protein White Blood Count 6.6 # Red Blood Count 4.17 L Hemoglobin 12.3 L Hematocrit 39.3 L Mean Corpuscular 94.2 Volume Mean Corpuscular 29.5 Hemoglobin Mean Corpuscular 31.3 L Hemoglobin Concen t Red Cell 15.9 H Distribution Width Platelet Count 162 Mean Platelet 12.4 H Volume Immature 1.400 H Granulocytes % Neutrophils % 40.2 Lymphocytes % 45.8 Monocytes % 9.5 Eosinophils % 2.3 Basophils % 0.8 Nucleated Red 0.0 Blood Cells % Immature 0.090 H Granulocytes # Neutrophils # 2.7 Lymphocytes # 3.0 H Monocytes # 0.6 Eosinophils # 0.2 Basophils # 0.1 Nucleated Red 0.0 Blood Cells # Phosphorus Level 4.0 Magnesium Level 1.9 Sodium Level 139 Potassium Level 3.9 Chloride Level 106 Carbon Dioxide 23 Level Anion Gap 10 Blood Urea 8 Nitrogen Creatinine 0.32 L Est Glomerular > 60 Filtrat Rate mL/min Glucose Level 100 Calcium Level 8.8 Subjective 24 Hr Interval Summary Free Text/Dictation pt still coughing sputum cx+gnr Exam/Review of Systems Vital Signs Vitals Vital Signs Date Temp Pulse Resp B/P (MAP) Pulse Ox O2 O2 Flow FiO2 Time Delivery Rate 10/17/18 72 18 95 21 09:33 10/17/18 97.6 94/59 (71) Room Air 07:48 Intake and Output 10/16/18 10/16/18 10/17/18 1414:59 22:59 06:59 IntakeIntake Total 475 ml BalanceBalance 475 ml Exam GENERAL: The patient is basically nonverbal, lying on the bed, curled up in 1 position. HEENT: Pupils are equal, round and reactive to light. NECK: Supple. HEART: Regular rate and rhythm. LUNGS: coarse breath sounds b/l ABDOMEN: G-tube present. EXTREMITIES: Contractures present. Thin extremities. Medications Medications Current Medications Acetaminophen (Tylenol Liquid) 160 mg Q4H PRN GTB MILD PAIN(1-3) OR TEMP>38C; Start 10/15/18 at 03:30 Ascorbic Acid (Vitamin C) 1,000 mg DAILY GTB Last administered on 10/17/18 10:03; Admin Dose 1,000 MG; Start 10/15/18 at 09:00 Famotidine (Pepcid) 20 mg BID GTB Last administered on 10/17/18 10:03; Admin Dose 20 MG; Start 10/15/18 at 09:00 Ferrous Sulfate (Feosol Liquid Cup) 300 mg BID GTB Last administered on 10/17/18 10:02; Admin Dose 300 MG; Start 10/15/18 at 09:00 Ibuprofen (Motrin Liquid (Ped)) 100 mg Q6 GTB Last administered on 10/17/18at 12:00; Admin Dose 100 MG; Start 10/15/18 at 06:00 Morphine Sulfate (Roxanol) 15 mg Q12 PRN GTB SEVERE PAIN LEVEL 7-10; Start 10/15/18 at 09:00 Ondansetron HCl (Zofran Odt) 4 mg Q6H PRN ODT NAUSEA AND/OR VOMITING; Start 10/15/18 at 03:30 Phenobarbital (Luminal) 97.2 mg BID GTB Last administered on 10/17/18 10:03; Admin Dose 97.2 MG; Start 10/15/18 at 09:00 Polyethylene Glycol (Miralax) 17 gm DAILY GTB Last administered on 10/17/18 10:03; Admin Dose 17 GM; Start 10/15/18 at 09:00 Topiramate (Topamax) 75 mg BID GTB Last administered on 10/17/18 10:02; Admin Dose 75 MG; Start 10/15/18 at 09:00 Zinc Sulfate (Zinc Sulfate) 220 mg DAILY GTB Last administered on 10/17/18 10:03; Admin Dose 220 MG; Start 10/15/18 at 09:00 Albuterol/ Ipratropium (Duoneb) 3 ml Q6H RESP THERAPY PRN HHN SHORTNESS OF BREATH; Start 10/15/18 at 03:30 Lamotrigine (Lamictal) 100 mg BID GTB Last administered on 10/17/18 10:02; Admin Dose 100 MG; Start 10/15/18 at 09:00 Lamotrigine (Lamictal) 75 mg BID GTB Last administered on 10/17/18 10:02; Admin Dose 75 MG; Start 10/15/18 at 09:00 Albuterol/ Ipratropium (Duoneb) 3 ml Q4HWA RESP THERAPY HHN Last administered on 10/17/18 14:02; Admin Dose 3 ML; Start 10/15/18 at 17:00 Enoxaparin Sodium (Lovenox) 40 mg DAILY SC Last administered on 10/17/18 10:06; Admin Dose 40 MG; Start 10/15/18 at 16:30 Lorazepam (Ativan) 1 mg Q6H PRN IV For seizures; Start 10/15/18 at 20:00 Collagenase (Santyl) 1 applic BID TOP Last administered on 1/10/19at 10:02; Admin Dose 1 APPLIC; Start 10/16/18 at 21:00 NAVNEET REINOSO MD Oct 17, 2018 14:06
--- NOTE | 2018-10-17 16:52 | CONS ---
Assessment/Plan Assessment/Plan Hospital Course A: 28 M c/ Hx of CP c/b epilepsy...and other comorbidities, who is admitted for evaluation and management of respiratory Sx.. Neurology is consulted for epilepsy management; specifically, is concern for a recent breakthrough seizure. Intercurrent infection could certainly be lowering his seizure threshold.. P: Continue Phb 97.2mg bid Continue Lamictal 175 mg bid Continue Topamax 75 mg bid Ativan iv prn prolonged seizure (> 5 min) or cluster (> 2 seizures in 24 hrs) Continued medical management per primary Will follow clinically Result Diagram: 10/17/18 0610 10/17/18 1226 Results 24hrs Laboratory Tests Test 10/17/18 05:45 10/17/18 06:10 10/17/18 08:23 10/17/18 12:26 Urine Color YELLOW Urine Clarity SLIGHTLY CLOUDY A Urine pH 8.0 Urine Specific 1.010 [place] Urine Ketones NEGATIVE Urine Nitrite NEGATIVE Urine Bilirubin NEGATIVE Urine NEGATIVE Urobilinogen Urine Leukocyte NEGATIVE Esterase Urine Microscopic 0 RBC Urine Microscopic 4 WBC Urine Amorphous FEW A Crystals Urine Bacteria FEW A Urine Mucus FEW A Urine Hemoglobin NEGATIVE Urine Glucose NEGATIVE Urine Total NEGATIVE Protein White Blood Count 6.6 # Red Blood Count 4.17 L Hemoglobin 12.3 L Hematocrit 39.3 L Mean Corpuscular 94.2 Volume Mean Corpuscular 29.5 Hemoglobin Mean Corpuscular 31.3 L Hemoglobin Concen t Red Cell 15.9 H Distribution Width Platelet Count 162 Mean Platelet 12.4 H Volume Immature 1.400 H Granulocytes % Neutrophils % 40.2 Lymphocytes % 45.8 Monocytes % 9.5 Eosinophils % 2.3 Basophils % 0.8 Nucleated Red 0.0 Blood Cells % Immature 0.090 H Granulocytes # Neutrophils # 2.7 Lymphocytes # 3.0 H Monocytes # 0.6 Eosinophils # 0.2 Basophils # 0.1 Nucleated Red 0.0 Blood Cells # Phosphorus Level 4.0 Magnesium Level 1.9 Sodium Level 139 Potassium Level 3.9 Chloride Level 106 Carbon Dioxide 23 Level Anion Gap 10 Blood Urea 8 Nitrogen Creatinine 0.32 L Est Glomerular > 60 Filtrat Rate mL/min Glucose Level 100 Calcium Level 8.8 Consultation Date/Type/Reason Admit Date/Time Oct 15, 2018 at 00:03 Type of Consult Neurology Requesting Provider: NAVNEET REINOSO MD Date/Time of Note DATE: 10/17/18 TIME: 16:49 24 HR Interval Summary Free Text/Dictation Continues medsurg monitoring. No acute events or changes in pt condition reported. Exam Vital Signs Vitals Vital Signs Date Temp Pulse Resp B/P (MAP) Pulse Ox O2 O2 Flow FiO2 Time Delivery Rate 10/17/18 77 20 94 21 14:02 10/17/18 97.9 90/51 (64) Room Air 14:00 Intake and Output 10/16/18 10/16/18 10/17/18 1515:00 23:00 07:00 IntakeIntake Total 475 ml BalanceBalance 475 ml Exam PE: Gen Appearance: No Apparent Distress HEENT: Dysmorphic Cardiovascular: Regular rate Abdomen: Soft Extremities: Dry NE: The patient was alert, able to fix and follow, though nonverbal and unable to follow commands. Cranial nerve examination was limited by mental status. Pupils were equal and reactive to light. There was no afferent pupillary defect. Funduscopic examination was limited. Face was grossly symmetric, w/ present corneal and cough reflexes. Tone was somewhat increased on the left. Muscle bulk was decreased throughout. I did not see fasciculations. The patient was weak diffusely, able to move his limbs spontaneously, R>L.. Coordination and gait testing was limited by mental status. Arm and leg reflexes were brisk. Carrizales's sign was absent. Plantar responses were extensor.. DEBO BROCK NP Oct 17, 2018 16:52 ASHLEY ARAGON Oct 18, 2018 08:26
[2018-10-17 20:06] VITALS: BP 91/54; PULSE 78; RESP 16
[2018-10-17] MEDS: CEFEPIME 1GM/50 ML (PMX) 50 ML IVPB SCH (20:10)
[2018-10-18] MEDS: IBUPROFEN LIQUID (PED) 20 MG/ML CUP GTB SCH ×4 (02:01→18:26)
[2018-10-18 02:26] VITALS: BP 93/56; PULSE 74; RESP 18
[2018-10-18 07:44] VITALS: BP 89/53; PULSE 52; RESP 18
[2018-10-18] MEDS: ZINC SULFATE 220 MG CAP GTB SCH (08:31)
[2018-10-18] MEDS: CEFEPIME 1GM/50 ML (PMX) 50 ML IVPB SCH ×2 (08:31→20:42)
[2018-10-18] MEDS: LAMOTRIGINE 25 MG TAB GTB SCH ×2 (08:31→20:44)
[2018-10-18] MEDS: FERROUS SULFATE 60 MG/ML 5ML CUP GTB SCH ×2 (08:31→20:43)
[2018-10-18] MEDS: LAMOTRIGINE 100 MG TAB GTB SCH ×2 (08:32→20:44)
[2018-10-18] MEDS: TOPIRAMATE 25 MG TAB GTB SCH ×2 (08:32→20:44)
[2018-10-18] MEDS: ASCORBIC ACID 500 MG TAB GTB SCH (08:32)
[2018-10-18] MEDS: FAMOTIDINE 20 MG TAB GTB SCH ×2 (08:32→20:44)
[2018-10-18] MEDS: POLYETHYLENE GLYCOL 17 GM PACKET GTB SCH (08:32)
[2018-10-18] MEDS: COLLAGENASE 5 GM (UD JAR) TOP SCH ×2 (08:33→20:45)
[2018-10-18] MEDS: ENOXAPARIN 40 MG/0.4 ML SYG SC SCH (08:34)
[2018-10-18] MEDS: BALSAM PERU/CASTOR OIL 60 GM TUBE TOP SCH ×2 (08:34→20:45)
[2018-10-18] MEDS: ALBUTEROL/IPRATROPIUM (NEB) 3 ML AMP HHN SCH ×4 (09:00→21:30)
[2018-10-18] MEDS: PHENOBARBITAL 32.4 MG TAB GTB SCH ×2 (10:02→20:43)
[2018-10-18] MEDS ORDERED: LORAZEPAM 2 MG INJ IV PRN (11:00)
--- NOTE | 2018-10-18 13:02 | PN ---
Date/Time of Note Date/Time of Note DATE: 10/18/18 TIME: 12:59 Assessment/Plan VTE Prophylaxis Risk score (from [facility] [place]0 risk: 4 SCD applied (from [facility] [place]): No SCD contraindicated: other Pharmacological prophylaxis: LMWH Lines/Catheters IV Catheter Type (from [facility] [place]): Mid Line Urinary Cath still in place: No Assessment/Plan Hospital Course 1. Fever, shortness of breath, cough, likely secondary to pneumonia and left lower lobe infiltrate. cx+GNR 2. Mild hypernatremia.resolved 3. Cerebral palsy, bedbound. 4. History of asthma. 5. History of decubitus ulcer of the buttocks. 6. Epilepsy.? seizure episode however not noted by nursing staff> + 7. Dysphagia with a G-tube. 8. Spastic quadriplegia. 9. Protein energy malnutrition. Assessment/Plan - c/w cefepime for pseudomonas coverage - cw nebs - GI prophylaxis Famotidine BID -DVT prophylaxis lovenox - cw g tube feeding - cw lamictal/ phenobarb/topamax> neuro to adjust phenobarb. levels - monitor for seizures - Repeat Xray Result Diagram: 10/18/18 0540 10/18/18 0540 Results 24hrs Laboratory Tests Test 10/18/18 05:40 White Blood Count 6.6 Red Blood Count 4.15 L Hemoglobin 12.2 L Hematocrit 38.0 L Mean Corpuscular Volume 91.6 Mean Corpuscular Hemoglobin 29.4 Mean Corpuscular Hemoglobin Concent 32.1 Red Cell Distribution Width 15.9 H Platelet Count 255 # Mean Platelet Volume 11.3 H Immature Granulocytes % 0.900 H Neutrophils % 46.6 Lymphocytes % 39.9 Monocytes % 8.8 Eosinophils % 3.2 Basophils % 0.6 Nucleated Red Blood Cells % 0.0 Immature Granulocytes # 0.060 H Neutrophils # 3.1 Lymphocytes # 2.6 Monocytes # 0.6 Eosinophils # 0.2 Basophils # 0.0 Nucleated Red Blood Cells # 0.0 Sodium Level 139 Potassium Level 4.2 Chloride Level 110 Carbon Dioxide Level 24 Anion Gap 5 Blood Urea Nitrogen 9 Creatinine 0.38 L Est Glomerular Filtrat Rate mL/min > 60 Glucose Level 81 Calcium Level 8.9 Phosphorus Level 4.2 Magnesium Level 2.1 Subjective 24 Hr Interval Summary Subjective hx not possible: pt non-verbal Psychological: confusion Exam/Review of Systems Vital Signs Vitals Vital Signs Date Temp Pulse Resp B/P (MAP) Pulse Ox O2 O2 Flow FiO2 Time Delivery Rate 10/18/18 78 20 97 21 12:53 10/18/18 97.9 89/53 (65) 07:44 10/17/18 Room Air 14:00 Intake and Output 10/17/18 10/17/18 10/18/18 1515:00 23:00 07:00 IntakeIntake Total 25 ml 550 ml 650 ml BalanceBalance 25 ml 550 ml 650 ml Exam Psych: nl mood/affect Head: normocephalic Eyes: nl conjunctiva Neck: supple Respiratory: crackles/rales, diminished breath sounds Cardiovascular: regular rate and rhythm, nl pulses Gastrointestinal: other (G tube) Neurological: confused Medications Medications Current Medications Acetaminophen (Tylenol Liquid) 160 mg Q4H PRN GTB MILD PAIN(1-3) OR TEMP>38C; Start 10/15/18 at 03:30 Ascorbic Acid (Vitamin C) 1,000 mg DAILY GTB Last administered on 10/18/18at 08:32; Admin Dose 1,000 MG; Start 10/15/18 at 09:00 Famotidine (Pepcid) 20 mg BID GTB Last administered on 10/18/18at 08:32; Admin Dose 20 MG; Start 10/15/18 at 09:00 Ferrous Sulfate (Feosol Liquid Cup) 300 mg BID GTB Last administered on 10/18/18at 08:31; Admin Dose 300 MG; Start 10/15/18 at 09:00 Ibuprofen (Motrin Liquid (Ped)) 100 mg Q6 GTB Last administered on 10/18/18at 12:01; Admin Dose 100 MG; Start 10/15/18 at 06:00 Morphine Sulfate (Roxanol) 15 mg Q12 PRN GTB SEVERE PAIN LEVEL 7-10; Start 10/15/18 at 09:00 Ondansetron HCl (Zofran Odt) 4 mg Q6H PRN ODT NAUSEA AND/OR VOMITING; Start 10/15/18 at 03:30 Phenobarbital (Luminal) 97.2 mg BID GTB Last administered on 10/18/18at 10:02; Admin Dose 97.2 MG; Start 10/15/18 at 09:00 Polyethylene Glycol (Miralax) 17 gm DAILY GTB Last administered on 10/18/18 08:32; Admin Dose 17 GM; Start 10/15/18 at 09:00 Topiramate (Topamax) 75 mg BID GTB Last administered on 10/18/18 08:32; Admin Dose 75 MG; Start 10/15/18 at 09:00 Zinc Sulfate (Zinc Sulfate) 220 mg DAILY GTB Last administered on 10/18/18 08:31; Admin Dose 220 MG; Start 10/15/18 at 09:00 Albuterol/ Ipratropium (Duoneb) 3 ml Q6H RESP THERAPY PRN HHN SHORTNESS OF BREATH; Start 10/15/18 at 03:30 Lamotrigine (Lamictal) 100 mg BID GTB Last administered on 10/18/18 08:32; Admin Dose 100 MG; Start 10/15/18 at 09:00 Lamotrigine (Lamictal) 75 mg BID GTB Last administered on 10/18/18 08:31; Admin Dose 75 MG; Start 10/15/18 at 09:00 Albuterol/ Ipratropium (Duoneb) 3 ml Q4HWA RESP THERAPY HHN Last administered on 10/18/18 12:53; Admin Dose 3 ML; Start 10/15/18 at 17:00 Enoxaparin Sodium (Lovenox) 40 mg DAILY SC Last administered on 10/18/18 08:34; Admin Dose 40 MG; Start 10/15/18 at 16:30 Collagenase (Santyl) 1 applic BID TOP Last administered on 10/18/18 08:33; Admin Dose 1 APPLIC; Start 10/16/18 at 21:00 Cefepime HCl 50 ml @ 100 mls/hr Q12 IVPB Last administered on 10/18/18 08:31; Admin Dose 100 MLS/HR; Start 10/17/18 at 21:00 Lorazepam (Ativan) 1 mg Q6H PRN IV FOR SEIZURES; Start 10/18/18 at 11:00 RICARDA BECKFORD Oct 18, 2018 13:02
[2018-10-18 15:08] VITALS: BP 75/38; PULSE 65; RESP 14
--- NOTE | 2018-10-18 16:41 | CONS ---
Assessment/Plan Assessment/Plan Hospital Course A: 28 M c/ Hx of CP c/b epilepsy...and other comorbidities, who is admitted for evaluation and management of respiratory Sx.. Neurology is consulted for epilepsy management; specifically, is concern for a recent breakthrough seizure. Intercurrent infection could certainly be lowering his seizure threshold.. P: Continue Phb 97.2mg bid Continue Lamictal 175 mg bid Continue Topamax 75 mg bid Ativan iv prn prolonged seizure (> 5 min) or cluster (> 2 seizures in 24 hrs) Continued medical management per primary Will follow clinically Result Diagram: 10/18/1840 10/18/18 0540 Results 24hrs Laboratory Tests Test 10/18/18 05:40 White Blood Count 6.6 Red Blood Count 4.15 L Hemoglobin 12.2 L Hematocrit 38.0 L Mean Corpuscular Volume 91.6 Mean Corpuscular Hemoglobin 29.4 Mean Corpuscular Hemoglobin Concent 32.1 Red Cell Distribution Width 15.9 H Platelet Count 255 # Mean Platelet Volume 11.3 H Immature Granulocytes % 0.900 H Neutrophils % 46.6 Lymphocytes % 39.9 Monocytes % 8.8 Eosinophils % 3.2 Basophils % 0.6 Nucleated Red Blood Cells % 0.0 Immature Granulocytes # 0.060 H Neutrophils # 3.1 Lymphocytes # 2.6 Monocytes # 0.6 Eosinophils # 0.2 Basophils # 0.0 Nucleated Red Blood Cells # 0.0 Sodium Level 139 Potassium Level 4.2 Chloride Level 110 Carbon Dioxide Level 24 Anion Gap 5 Blood Urea Nitrogen 9 Creatinine 0.38 L Est Glomerular Filtrat Rate mL/min > 60 Glucose Level 81 Calcium Level 8.9 Phosphorus Level 4.2 Magnesium Level 2.1 Consultation Date/Type/Reason Admit Date/Time Oct 15, 2018 at 00:03 Type of Consult Neurology Requesting Provider: NAVNEET REINOSO MD Date/Time of Note DATE: 10/18/18 TIME: 16:39 24 HR Interval Summary Free Text/Dictation Continues medsurg monitoring. No acute events or changes in condition reported. Family at bedside states that the pt is doing well but needs his breathing tx. Subjective hx not possible: pt non-verbal Exam Vital Signs Vitals Vital Signs Date Temp Pulse Resp B/P (MAP) Pulse Ox O2 O2 Flow FiO2 Time Delivery Rate 10/18/18 97.7 65 14 75/38 (50) 100 Room Air 15:08 10/18/18 21 12:53 Intake and Output 10/17/18 10/17/18 10/18/18 1515:00 23:00 07:00 IntakeIntake Total 25 ml 550 ml 650 ml BalanceBalance 25 ml 550 ml 650 ml Exam PE: Gen Appearance: No Apparent Distress HEENT: Dysmorphic Cardiovascular: Regular rate Abdomen: Soft Extremities: Dry NE: The patient was alert, able to fix and follow, though nonverbal and unable to follow commands. Cranial nerve examination was limited by mental status. Pupils were equal and reactive to light. There was no afferent pupillary defect. Funduscopic examination was limited. Face was grossly symmetric, w/ present corneal and cough reflexes. Tone was somewhat increased on the left. Muscle bulk was decreased throughout. I did not see fasciculations. The patient was weak diffusely, able to move his limbs spontaneously, R>L.. Coordination and gait testing was limited by mental status. Arm and leg reflexes were brisk. Carrizales's sign was absent. Plantar responses were extensor.. DEBO BROCK NP Oct 18, 2018 16:41
[2018-10-18 19:28] VITALS: BP 87/55; PULSE 77; RESP 16
[2018-10-19] MEDS: IBUPROFEN LIQUID (PED) 20 MG/ML CUP GTB SCH ×4 (00:12→18:00)
--- NOTE | 2018-10-19 00:48 | CONS ---
DATE OF ADMISSION: 10/15/2018 DATE OF CONSULTATION: 10/18/2018 TYPE OF CONSULTATION: Infectious Disease. REASON FOR CONSULTATION: Antibiotic management. HISTORY OF PRESENT ILLNESS: Bro Escobedo is a 28-year-old male who was transferred from [facility] on the with pneumonia. His past problems include: 1. Mental retardation. 2. Asthma. 3. Aspiration pneumonia. 4. Cerebral palsy. 5. Epilepsy. 6. Dysphagia status post G-tube placement. 7. Quadriplegia. 8. Protein calorie malnutrition. 9. History of debridement of a wound in the past. 10. ALLERGY TO VALPROATE. Acutely, the patient was brought to [facility] with cough and shortness of rehan th of 2 days' duration. Chest x-ray showed increased density in the left lower lobe consistent with atelectasis or infiltrate. The patient was discharged home with antibiotics. When he went home, how ever, according to his mother, fever and shortness of breath persisted. He also had diarrhea. He wa s brought to the emergency room for further evaluation. There, his temperature was 36.4, pulse of 82 , respirations 22, blood pressure 96/64. White count of 9.5, hemoglobin of 13.3. BUN and creatinine 19/0.48. PAST MEDICAL HISTORY: As outlined. FAMILY HISTORY: Noncontributory. SOCIAL HISTORY: He does not smoke, drink or abuse drugs. ALLERGIES: VALPROATE. MEDICATIONS: Per chart. REVIEW OF SYSTEMS: Noncontributory. LABORATORY DATA: In the ER here showed a white count of 8.5, hemoglobin 11.3, platelet count 195,000 . BUN and creatinine 13/0.37. Chest x-ray from outside hospital showed left lower lobe infiltrate. The patient had fever, shortness of breath, cough likely secondary to pneumonia and left lower lobe infiltrate. He was started on antibiotic therapy. He is currently on cefepime. Chest x-ray on the showed limited study, possible new patchy mid left upper lobe infiltrate. He has a gastrostomy tube overlying the epigastric region. MICROBIOLOGY: Sputum is growing E. coli sensitive to ceftriaxone and to trimethoprim-sulfa and to am ikacin of course not to gentamicin and intermediate to tobramycin. Neurology was consulted for recent breakthrough seizures. Intercurrent infection would certainly low er his seizure threshold. He is on Topamax and Lamictal and Ativan. White count today is 6.6. BUN and creatinine 9/0.38. The patient also was started on phenobarbital for his seizures. PHYSICAL EXAMINATION: GENERAL: The patient is awake, nonverbal, no acute distress. VITAL SIGNS: Stable. He is afebrile. SKIN: Without generalized rash. HEENT: Within normal limits. NECK: Supple. LYMPH NODES: None palpable. CHEST: Decreased breath sounds at the bases. HEART: Without murmur or gallop. ABDOMEN: Soft, nontender. G-tube in place without organosplenomegaly or masses. EXTREMITIES: He has contractures in both lower extremities. RECTAL AND GENITAL: Deferred. NEUROLOGIC: The patient has spastic quadriplegia. He has cerebral palsy. He is bedbound. IMPRESSION AND PLAN: This is a very unfortunate 28-year-old male. I would consider hospice care for him. I concur with the use of cefepime at this point. I will dictate my findings to Dr. Olivo and Dr. Vazquez. Dictated By: OTIS MENA MD, JD/CHRIS Conf#: [id number] DID#: [id number] CC: WILIAM VAZQUEZ MD;*EndCC*
[2018-10-19 01:40] VITALS: BP 91/54; PULSE 81; RESP 16
[2018-10-19 07:46] VITALS: BP 91/65; PULSE 66; RESP 16
[2018-10-19] MEDS: ALBUTEROL/IPRATROPIUM (NEB) 3 ML AMP HHN SCH ×4 (08:10→21:37)
[2018-10-19] MEDS: CEFEPIME 1GM/50 ML (PMX) 50 ML IVPB SCH ×2 (09:28→21:04)
[2018-10-19] MEDS: ZINC SULFATE 220 MG CAP GTB SCH (09:29)
[2018-10-19] MEDS: LAMOTRIGINE 100 MG TAB GTB SCH ×2 (09:29→21:06)
[2018-10-19] MEDS: LAMOTRIGINE 25 MG TAB GTB SCH ×2 (09:29→21:05)
[2018-10-19] MEDS: POLYETHYLENE GLYCOL 17 GM PACKET GTB SCH (09:29)
[2018-10-19] MEDS: PHENOBARBITAL 32.4 MG TAB GTB SCH ×2 (09:30→21:05)
[2018-10-19] MEDS: FAMOTIDINE 20 MG TAB GTB SCH ×2 (09:30→21:06)
[2018-10-19] MEDS: ASCORBIC ACID 500 MG TAB GTB SCH (09:30)
[2018-10-19] MEDS: COLLAGENASE 5 GM (UD JAR) TOP SCH ×2 (09:31→21:06)
[2018-10-19] MEDS: FERROUS SULFATE 60 MG/ML 5ML CUP GTB SCH ×2 (09:31→21:05)
[2018-10-19] MEDS: TOPIRAMATE 25 MG TAB GTB SCH ×2 (09:31→21:06)
[2018-10-19] MEDS: BALSAM PERU/CASTOR OIL 60 GM TUBE TOP SCH ×2 (09:31→21:07)
[2018-10-19] MEDS: ENOXAPARIN 40 MG/0.4 ML SYG SC SCH (09:34)
--- NOTE | 2018-10-19 14:34 | CONS ---
Date/Time of Note Date/Time of Note DATE: 10/19/18 TIME: 14:34 Assessment/Plan Assessment/Plan Hospital Course Patient is noncommunicative lying comfortably in bed no fevers overnight, no labs Sputum culture grew E. coli Antimicrobials: Cefepime Chest x-ray on admission revealed possibility new patchy mid left upper lobe infiltrate Physical examination: This is a debilitated chronically ill-appearing young man who is noncommunicative and in no distress. Head atraumatic normocephalic sclera nonicteric. Neck is supple. Chest rise symmetrical, breath sounds diminished bases. Heart: S1-S2. Abdomen soft bowel sounds present. Extremities wasted contracture Assessment: 1. Pneumonia 2. Resolving sepsis 3. Severe debilitated state secondary to cerebral palsy 4. Functional quadriplegia Plan: Patient remains stable, on appropriate antibiotics Result Diagram: 10/18/1840 10/18/1840 Consultation Date/Type/Reason Admit Date/Time Oct 15, 2018 at 00:03 Initial Consult Date Type of Consult id Requesting Provider: NAVNEET REINOSO MD Exam/Review of Systems Vital Signs Vitals Vital Signs Date Temp Pulse Resp B/P (MAP) Pulse Ox O2 O2 Flow FiO2 Time Delivery Rate 10/19/18 73 16 98 21 13:32 10/19/18 97.6 91/65 (74) 07:46 10/18/18 Room Air 15:08 Intake and Output 10/18/18 10/18/18 10/19/18 1515:00 23:00 07:00 IntakeIntake Total 50 ml 50 ml 680 ml BalanceBalance 50 ml 50 ml 680 ml Medications Medications Current Medications Acetaminophen (Tylenol Liquid) 160 mg Q4H PRN GTB MILD PAIN(1-3) OR TEMP>38C; Start 10/15/18 at 03:30 Ascorbic Acid (Vitamin C) 1,000 mg DAILY GTB Last administered on 10/19/18at 09:30; Admin Dose 1,000 MG; Start 10/15/18 at 09:00 Famotidine (Pepcid) 20 mg BID GTB Last administered on 10/19/18at 09:30; Admin Dose 20 MG; Start 10/15/18 at 09:00 Ferrous Sulfate (Feosol Liquid Cup) 300 mg BID GTB Last administered on 10/19/18at 09:31; Admin Dose 300 MG; Start 10/15/18 at 09:00 Ibuprofen (Motrin Liquid (Ped)) 100 mg Q6 GTB Last administered on 10/19/18 13:45; Admin Dose 100 MG; Start 10/15/18 at 06:00 Morphine Sulfate (Roxanol) 15 mg Q12 PRN GTB SEVERE PAIN LEVEL 7-10; Start 10/15/18 at 09:00 Ondansetron HCl (Zofran Odt) 4 mg Q6H PRN ODT NAUSEA AND/OR VOMITING Last administered on 10/18/18 18:26; Admin Dose 4 MG; Start 10/15/18 at 03:30 Phenobarbital (Luminal) 97.2 mg BID GTB Last administered on 10/19/18 09:30; Admin Dose 97.2 MG; Start 10/15/18 at 09:00 Polyethylene Glycol (Miralax) 17 gm DAILY GTB Last administered on 10/19/18 09:29; Admin Dose 17 GM; Start 10/15/18 at 09:00 Topiramate (Topamax) 75 mg BID GTB Last administered on 10/19/18 09:31; Admin Dose 75 MG; Start 10/15/18 at 09:00 Zinc Sulfate (Zinc Sulfate) 220 mg DAILY GTB Last administered on 10/19/18 09:29; Admin Dose 220 MG; Start 10/15/18 at 09:00 Albuterol/ Ipratropium (Duoneb) 3 ml Q6H RESP THERAPY PRN HHN SHORTNESS OF BREATH; Start 10/15/18 at 03:30 Lamotrigine (Lamictal) 100 mg BID GTB Last administered on 10/19/18 09:29; Admin Dose 100 MG; Start 10/15/18 at 09:00 Lamotrigine (Lamictal) 75 mg BID GTB Last administered on 10/19/18 09:29; Admin Dose 75 MG; Start 10/15/18 at 09:00 Albuterol/ Ipratropium (Duoneb) 3 ml Q4HWA RESP THERAPY HHN Last administered on 10/19/18 13:32; Admin Dose 3 ML; Start 10/15/18 at 17:00 Enoxaparin Sodium (Lovenox) 40 mg DAILY SC Last administered on 10/19/18 09:34; Admin Dose 40 MG; Start 10/15/18 at 16:30 Collagenase (Santyl) 1 applic BID TOP Last administered on 10/19/18at 09:31; Admin Dose 1 APPLIC; Start 10/16/18 at 21:00 Cefepime HCl 50 ml @ 100 mls/hr Q12 IVPB Last administered on 10/19/18 09:28; Admin Dose 100 MLS/HR; Start 10/17/18 at 21:00 Lorazepam (Ativan) 1 mg Q6H PRN IV FOR SEIZURES; Start 10/18/18 at 11:00 MANUEL PARRA NP Oct 19, 2018 14:34
--- NOTE | 2018-10-19 15:17 | PN ---
Date/Time of Note Date/Time of Note DATE: 10/19/18 TIME: 15:15 Assessment/Plan VTE Prophylaxis Risk score (from Ns)>0 risk: 4 SCD applied (from [facility] [place]): No SCD contraindicated: other Pharmacological prophylaxis: LMWH Lines/Catheters IV Catheter Type (from [facility] Mid Line Central line still needed: Yes Urinary Cath still in place: No Assessment/Plan Hospital Course 1. Fever, shortness of breath, cough, likely secondary to pneumonia and left lower lobe infiltrate. cx+GNR 2. Mild hypernatremia.resolved 3. Cerebral palsy, bedbound. 4. History of asthma. 5. History of decubitus ulcer of the buttocks. 6. Epilepsy.? seizure episode however not noted by nursing staff> + 7. Dysphagia with a G-tube. 8. Spastic quadriplegia. 9. Protein energy malnutrition. Assessment/Plan -d/c planning -c/w cefepime for pseudomonas coverage - cw nebs - GI prophylaxis Famotidine BID -DVT prophylaxis lovenox - cw g tube feeding - cw lamictal/ phenobarb/topamax> neuro to adjust phenobarb. levels - monitor for seizures - Repeat Xray Result Diagram: 10/18/18 0540 10/18/18 0540 Subjective 24 Hr Interval Summary Subjective hx not possible: pt non-verbal Exam/Review of Systems Vital Signs Vitals Vital Signs Date Temp Pulse Resp B/P (MAP) Pulse Ox O2 O2 Flow FiO2 Time Delivery Rate 10/19/18 73 16 98 21 13:32 10/19/18 97.6 91/65 (74) 07:46 10/18/18 Room Air 15:08 Intake and Output 10/18/18 10/18/18 10/19/18 1515:00 23:00 07:00 IntakeIntake Total 50 ml 50 ml 680 ml BalanceBalance 50 ml 50 ml 680 ml Exam Head: normocephalic Eyes: nl conjunctiva ENMT: nl external ears & nose Cardiovascular: regular rate and rhythm Gastrointestinal: soft, other (GT) Neurological: confused Medications Medications Current Medications Acetaminophen (Tylenol Liquid) 160 mg Q4H PRN GTB MILD PAIN(1-3) OR TEMP>38C; Start 10/15/18 at 03:30 Ascorbic Acid (Vitamin C) 1,000 mg DAILY GTB Last administered on 10/19/18 09:30; Admin Dose 1,000 MG; Start 10/15/18 at 09:00 Famotidine (Pepcid) 20 mg BID GTB Last administered on 10/19/18 09:30; Admin Dose 20 MG; Start 10/15/18 at 09:00 Ferrous Sulfate (Feosol Liquid Cup) 300 mg BID GTB Last administered on 10/19/18 09:31; Admin Dose 300 MG; Start 10/15/18 at 09:00 Ibuprofen (Motrin Liquid (Ped)) 100 mg Q6 GTB Last administered on 10/19/18 13:45; Admin Dose 100 MG; Start 10/15/18 at 06:00 Morphine Sulfate (Roxanol) 15 mg Q12 PRN GTB SEVERE PAIN LEVEL 7-10; Start 10/15/18 at 09:00 Ondansetron HCl (Zofran Odt) 4 mg Q6H PRN ODT NAUSEA AND/OR VOMITING Last administered on 10/18/18 18:26; Admin Dose 4 MG; Start 10/15/18 at 03:30 Phenobarbital (Luminal) 97.2 mg BID GTB Last administered on 10/19/18 09:30; Admin Dose 97.2 MG; Start 10/15/18 at 09:00 Polyethylene Glycol (Miralax) 17 gm DAILY GTB Last administered on 10/19/18 09:29; Admin Dose 17 GM; Start 10/15/18 at 09:00 Topiramate (Topamax) 75 mg BID GTB Last administered on 10/19/18 09:31; Admin Dose 75 MG; Start 10/15/18 at 09:00 Zinc Sulfate (Zinc Sulfate) 220 mg DAILY GTB Last administered on 10/19/18 09:29; Admin Dose 220 MG; Start 10/15/18 at 09:00 Albuterol/ Ipratropium (Duoneb) 3 ml Q6H RESP THERAPY PRN HHN SHORTNESS OF BREATH; Start 10/15/18 at 03:30 Lamotrigine (Lamictal) 100 mg BID GTB Last administered on 10/19/18 09:29; Admin Dose 100 MG; Start 10/15/18 at 09:00 Lamotrigine (Lamictal) 75 mg BID GTB Last administered on 10/19/18 09:29; Admin Dose 75 MG; Start 10/15/18 at 09:00 Albuterol/ Ipratropium (Duoneb) 3 ml Q4HWA RESP THERAPY HHN Last administered on 10/19/18 13:32; Admin Dose 3 ML; Start 10/15/18 at 17:00 Enoxaparin Sodium (Lovenox) 40 mg DAILY SC Last administered on 10/19/18 09:34; Admin Dose 40 MG; Start 10/15/18 at 16:30 Collagenase (Santyl) 1 applic BID TOP Last administered on 10/19/18 09:31; Admin Dose 1 APPLIC; Start 10/16/18 at 21:00 Cefepime HCl 50 ml @ 100 mls/hr Q12 IVPB Last administered on 10/19/18 09:28; Admin Dose 100 MLS/HR; Start 10/17/18 at 21:00 Lorazepam (Ativan) 1 mg Q6H PRN IV FOR SEIZURES; Start 10/18/18 at 11:00 RICARDA BECKFORD Oct 19, 2018 15:17
[2018-10-19 20:00] VITALS: BP 102/56; PULSE 81; RESP 16
[2018-10-20] MEDS: IBUPROFEN LIQUID (PED) 20 MG/ML CUP GTB SCH ×5 (00:19→23:49)
[2018-10-20 01:45] VITALS: BP 82/51; PULSE 63; RESP 17
[2018-10-20 07:46] VITALS: BP 81/54; PULSE 62; RESP 17
--- NOTE | 2018-10-20 08:11 | CONS ---
Assessment/Plan Assessment/Plan Hospital Course A: 28 M c/ Hx of CP c/b epilepsy...and other comorbidities, who is admitted for evaluation and management of respiratory Sx.. Neurology is consulted for epilepsy management; specifically, is concern for a recent breakthrough seizure. Intercurrent infection could certainly be lowering his seizure threshold.. P: Continue Phb 97.2mg bid Continue Lamictal 175 mg bid Continue Topamax 75 mg bid Ativan iv prn prolonged seizure (> 5 min) or cluster (> 2 seizures in 24 hrs) Continued medical management per primary Will follow clinically Result Diagram: 10/18/1840 10/18/1840 Consultation Date/Type/Reason Admit Date/Time Oct 15, 2018 at 00:03 Type of Consult Neurology Reason for Consultation seizure Requesting Provider: NAVNEET REINOSO MD Date/Time of Note DATE: 10/20/18 TIME: 08:10 Exam Vital Signs Vitals Vital Signs Date Temp Pulse Resp B/P (MAP) Pulse Ox O2 O2 Flow FiO2 Time Delivery Rate 10/20/18 97.5 62 17 81/54 (63) 99 07:46 10/19/18 21 21:38 10/18/18 Room Air 15:08 Intake and Output 10/19/18 10/19/18 10/20/18 1515:00 23:00 07:00 IntakeIntake Total 50 ml 730 ml 650 ml BalanceBalance 50 ml 730 ml 650 ml Exam PE: Gen Appearance: No Apparent Distress; dysmorphic Cardiovascular: Regular rate Abdomen: Soft Extremities: Dry NE: The patient was alert though nonverbal. Cranial nerve examination was limited by mental status. Pupils were equal and reactive to light. There was no afferent pupillary defect. Funduscopic exami nation was limited. Face was grossly symmetric, w/ present corneal and cough reflexes. Tone was increased some. Muscle bulk was diffusely diminished. I did not see fasciculations. The patient withdrew to noxious stimulation x 4. Coordination and gait testing was limited by mental status. Arm and leg reflexes were within normal limits and symmetric. Carrizales's sign was absent. Plantar responses were extensor. ASHLEY ARAGON Oct 20, 2018 08:11
[2018-10-20] MEDS: ALBUTEROL/IPRATROPIUM (NEB) 3 ML AMP HHN SCH ×4 (09:19→21:32)
[2018-10-20 09:30] VITALS: BP 90/59; PULSE 67
[2018-10-20] MEDS: POLYETHYLENE GLYCOL 17 GM PACKET GTB SCH (09:46)
[2018-10-20] MEDS: COLLAGENASE 5 GM (UD JAR) TOP SCH ×2 (09:46→21:08)
[2018-10-20] MEDS: FERROUS SULFATE 60 MG/ML 5ML CUP GTB SCH ×2 (09:46→20:53)
[2018-10-20] MEDS: LAMOTRIGINE 100 MG TAB GTB SCH ×2 (09:47→20:54)
[2018-10-20] MEDS: LAMOTRIGINE 25 MG TAB GTB SCH ×2 (09:47→20:54)
[2018-10-20] MEDS: PHENOBARBITAL 32.4 MG TAB GTB SCH ×2 (09:48→20:55)
[2018-10-20] MEDS: TOPIRAMATE 25 MG TAB GTB SCH ×2 (09:48→20:54)
[2018-10-20] MEDS: FAMOTIDINE 20 MG TAB GTB SCH ×2 (09:49→20:55)
[2018-10-20] MEDS: ASCORBIC ACID 500 MG TAB GTB SCH (09:49)
[2018-10-20] MEDS: ZINC SULFATE 220 MG CAP GTB SCH (09:49)
[2018-10-20] MEDS: CEFEPIME 1GM/50 ML (PMX) 50 ML IVPB SCH ×2 (09:50→20:54)
[2018-10-20] MEDS: BALSAM PERU/CASTOR OIL 60 GM TUBE TOP SCH ×2 (09:50→21:08)
[2018-10-20] MEDS: ENOXAPARIN 40 MG/0.4 ML SYG SC SCH (09:52)
--- NOTE | 2018-10-20 12:49 | CONS ---
Date/Time of Note Date/Time of Note DATE: 10/20/18 TIME: 12:47 Assessment/Plan Assessment/Plan Result Diagram: 10/18/18 0540 10/18/18 0540 Consultation Date/Type/Reason Admit Date/Time Oct 15, 2018 at 00:03 Initial Consult Date SUBJECTIVE: Patient is nonverbal. Looks comfortable. No fevers. VS: stable T: 97.5 LABS: reviewed. none today Sputum culture grew E. coli Antimicrobials: Cefepime Chest x-ray on admission revealed possibility new patchy mid left upper lobe infiltrate Physical examination: GEN: This is a debilitated chronically ill-appearing young man who is noncommunicative and in no distress. HENT: Head atraumatic normocephalic sclera nonicteric. Neck is supple. PULM:Chest rise symmetrical, breath sounds diminished bases. Heart: S1-S2. Abdomen soft bowel sounds present. Extremities wasted contracture Assessment: 1. Pneumonia 2. Resolving sepsis 3. Severe debilitated state secondary to cerebral palsy 4. Functional quadriplegia Plan: Patient remains stable.Improving on current antibiotics, will continue. Requesting Provider: NAVNEET REINOSO MD Exam/Review of Systems Vital Signs Vitals Vital Signs Date Temp Pulse Resp B/P (MAP) Pulse Ox O2 O2 Flow FiO2 Time Delivery Rate 10/20/18 67 90/59 (69) 09:30 10/20/18 12 99 21 09:27 10/20/18 97.5 07:46 10/18/18 Room Air 15:08 Intake and Output 10/19/18 10/19/18 10/20/18 1515:00 23:00 07:00 IntakeIntake Total 50 ml 730 ml 650 ml BalanceBalance 50 ml 730 ml 650 ml Medications Medications Current Medications Acetaminophen (Tylenol Liquid) 160 mg Q4H PRN GTB MILD PAIN(1-3) OR TEMP>38C; Start 10/15/18 at 03:30 Ascorbic Acid (Vitamin C) 1,000 mg DAILY GTB Last administered on 10/20/18at 09:49; Admin Dose 1,000 MG; Start 10/15/18 at 09:00 Famotidine (Pepcid) 20 mg BID GTB Last administered on 10/20/18at 09:49; Admin Dose 20 MG; Start 10/15/18 at 09:00 Ferrous Sulfate (Feosol Liquid Cup) 300 mg BID GTB Last administered on 10/20/18 09:46; Admin Dose 300 MG; Start 10/15/18 at 09:00 Ibuprofen (Motrin Liquid (Ped)) 100 mg Q6 GTB Last administered on 10/20/18 05:47; Admin Dose 100 MG; Start 10/15/18 at 06:00 Morphine Sulfate (Roxanol) 15 mg Q12 PRN GTB SEVERE PAIN LEVEL 7-10; Start 10/15/18 at 09:00 Ondansetron HCl (Zofran Odt) 4 mg Q6H PRN ODT NAUSEA AND/OR VOMITING Last administered on 10/18/18 18:26; Admin Dose 4 MG; Start 10/15/18 at 03:30 Phenobarbital (Luminal) 97.2 mg BID GTB Last administered on 10/20/18 09:48; Admin Dose 97.2 MG; Start 10/15/18 at 09:00 Polyethylene Glycol (Miralax) 17 gm DAILY GTB Last administered on 10/20/18 09:46; Admin Dose 17 GM; Start 10/15/18 at 09:00 Topiramate (Topamax) 75 mg BID GTB Last administered on 10/20/18 09:48; Admin Dose 75 MG; Start 10/15/18 at 09:00 Zinc Sulfate (Zinc Sulfate) 220 mg DAILY GTB Last administered on 10/20/18 0 9:49; Admin Dose 220 MG; Start 10/15/18 at 09:00 Albuterol/ Ipratropium (Duoneb) 3 ml Q6H RESP THERAPY PRN HHN SHORTNESS OF BREATH; Start 10/15/18 at 03:30 Lamotrigine (Lamictal) 100 mg BID GTB Last administered on 10/20/18 09:47; Admin Dose 100 MG; Start 10/15/18 at 09:00 Lamotrigine (Lamictal) 75 mg BID GTB Last administered on 10/20/18 09:47; Admin Dose 75 MG; Start 10/15/18 at 09:00 Albuterol/ Ipratropium (Duoneb) 3 ml Q4HWA RESP THERAPY HHN Last administered on 10/19/18 21:37; Admin Dose 3 ML; Start 10/15/18 at 17:00 Enoxaparin Sodium (Lovenox) 40 mg DAILY SC Last administered on 10/20/18 09:52; Admin Dose 40 MG; Start 10/15/18 at 16:30 Collagenase (Santyl) 1 applic BID TOP Last administered on 10/20/18 09:46; Admin Dose 1 APPLIC; Start 10/16/18 at 21:00 Cefepime HCl 50 ml @ 100 mls/hr Q12 IVPB Last administered on 10/20/18 09:50; Admin Dose 100 MLS/HR; Start 10/17/18 at 21:00 Lorazepam (Ativan) 1 mg Q6H PRN IV FOR SEIZURES; Start 10/18/18 at 11:00 DELFINO SALGADO Oct 20, 2018 12:49
[2018-10-20 15:40] VITALS: BP 85/50; PULSE 79; RESP 18
[2018-10-20 15:45] VITALS: BP 102/55; PULSE 105; RESP 18
--- NOTE | 2018-10-20 18:31 | PN ---
Date/Time of Note Date/Time of Note DATE: 10/20/18 TIME: 18:29 Assessment/Plan VTE Prophylaxis Risk score (from Ns)>0 risk: 4 SCD applied (from [facility] [place]): No SCD contraindicated: other Pharmacological prophylaxis: other Lines/Catheters [facility] Type (from [facility] Mid Line Urinary Cath still in place: No Assessment/Plan Hospital Course 1. sepsis better 2. hypernatremia.resolved 3. Cerebral palsy, bedbound. 4. History of asthma. 5. History of decubitus ulcer of the buttocks. 6. Epilepsy.? seizure episode however not noted by nursing staff> + 7. Dysphagia with a G-tube. 8. Spastic quadriplegia. 9. Protein energy malnutrition. plan antibiotic Result Diagram: 10/18/1853910/18/18 05 Subjective 24 Hr Interval Summary Subjective hx not possible: pt critical, other (no distress,no sob) Respiratory: no complaints Cardiovascular: no complaints Exam/Review of Systems Vital Signs Vitals Vital Signs Date Temp Pulse Resp B/P (MAP) Pulse Ox O2 O2 Flow FiO2 Time Delivery Rate 10/20/18 64 16 94 21 17:24 10/20/18 99.7 102/55 15:45 (71) 10/18/18 Room Air 15:08 Intake and Output 10/19/18 10/19/18 10/20/18 1515:00 23:00 07:00 IntakeIntake Total 50 ml 730 ml 650 ml BalanceBalance 50 ml 730 ml 650 ml Exam Respiratory: diminished breath sounds Cardiovascular: regular rate and rhythm Gastrointestinal: soft Musculoskeletal: nl extremities to inspection Extremities: normal pulses Medications Medications Current Medications Acetaminophen (Tylenol Liquid) 160 mg Q4H PRN GTB MILD PAIN(1-3) OR TEMP>38C; Start 10/15/18 at 03:30 Ascorbic Acid (Vitamin C) 1,000 mg DAILY GTB Last administered on 10/20/18at 09:49; Admin Dose 1,000 MG; Start 10/15/18 at 09:00 Famotidine (Pepcid) 20 mg BID GTB Last administered on 10/20/18at 09:49; Admin Dose 20 MG; Start 10/15/18 at 09:00 Ferrous Sulfate (Feosol Liquid Cup) 300 mg BID GTB Last administered on 10/20/18at 09:46; Admin Dose 300 MG; Start 10/15/18 at 09:00 Ibuprofen (Motrin Liquid (Ped)) 100 mg Q6 GTB Last administered on 10/20/18 17:55; Admin Dose 100 MG; Start 10/15/18 at 06:00 Morphine Sulfate (Roxanol) 15 mg Q12 PRN GTB SEVERE PAIN LEVEL 7-10; Start 10/15/18 at 09:00 Ondansetron HCl (Zofran Odt) 4 mg Q6H PRN ODT NAUSEA AND/OR VOMITING Last administered on 10/18/18 18:26; Admin Dose 4 MG; Start 10/15/18 at 03:30 Phenobarbital (Luminal) 97.2 mg BID GTB Last administered on 10/20/18 09:48; Admin Dose 97.2 MG; Start 10/15/18 at 09:00 Polyethylene Glycol (Miralax) 17 gm DAILY GTB Last administered on 10/20/18 09:46; Admin Dose 17 GM; Start 10/15/18 at 09:00 Topiramate (Topamax) 75 mg BID GTB Last administered on 10/20/18 09:48; Admin Dose 75 MG; Start 10/15/18 at 09:00 Zinc Sulfate (Zinc Sulfate) 220 mg DAILY GTB Last administered on 10/20/18 09:49; Admin Dose 220 MG; Start 10/15/18 at 09:00 Albuterol/ Ipratropium (Duoneb) 3 ml Q6H RESP THERAPY PRN HHN SHORTNESS OF BREATH; Start 10/15/18 at 03:30 Lamotrigine (Lamictal) 100 mg BID GTB Last administered on 10/20/18 09:47; Admin Dose 100 MG; Start 10/15/18 at 09:00 Lamotrigine (Lamictal) 75 mg BID GTB Last administered on 10/20/18 09:47; Admin Dose 75 MG; Start 10/15/18 at 09:00 Albuterol/ Ipratropium (Duoneb) 3 ml Q4HWA RESP THERAPY HHN Last administered on 10/20/18 17:23; Admin Dose 3 ML; Start 10/15/18 at 17:00 Enoxaparin Sodium (Lovenox) 40 mg DAILY SC Last administered on 10/20/18 09:52; Admin Dose 40 MG; Start 10/15/18 at 16:30 Collagenase (Santyl) 1 applic BID TOP Last administered on 10/20/18 09:46; Admin Dose 1 APPLIC; Start 10/16/18 at 21:00 Cefepime HCl 50 ml @ 100 mls/hr Q12 IVPB Last administered on 10/20/18 09:50; Admin Dose 100 MLS/HR; Start 10/17/18 at 21:00 Lorazepam (Ativan) 1 mg Q6H PRN IV FOR SEIZURES; Start 10/18/18 at 11:00 WILIAM VAZQUEZ MD Oct 20, 2018 18:31
[2018-10-20 20:00] VITALS: BP 103/72; PULSE 92; RESP 17
[2018-10-21 02:00] VITALS: BP 98/60; PULSE 68; RESP 17
[2018-10-21] MEDS: IBUPROFEN LIQUID (PED) 20 MG/ML CUP GTB SCH ×3 (06:03→18:27)
[2018-10-21 07:45] VITALS: BP 93/55; PULSE 57; RESP 15
[2018-10-21] MEDS: BALSAM PERU/CASTOR OIL 60 GM TUBE TOP SCH ×2 (08:38→20:42)
[2018-10-21] MEDS: POLYETHYLENE GLYCOL 17 GM PACKET GTB SCH (08:38)
[2018-10-21] MEDS: COLLAGENASE 5 GM (UD JAR) TOP SCH ×2 (08:38→20:40)
[2018-10-21] MEDS: LAMOTRIGINE 100 MG TAB GTB SCH ×2 (08:46→20:40)
[2018-10-21] MEDS: ZINC SULFATE 220 MG CAP GTB SCH (08:46)
[2018-10-21] MEDS: LAMOTRIGINE 25 MG TAB GTB SCH ×2 (08:46→20:40)
[2018-10-21] MEDS: CEFEPIME 1GM/50 ML (PMX) 50 ML IVPB SCH ×2 (08:46→20:39)
[2018-10-21] MEDS: ASCORBIC ACID 500 MG TAB GTB SCH (08:46)
[2018-10-21] MEDS: TOPIRAMATE 25 MG TAB GTB SCH ×2 (08:47→20:42)
[2018-10-21] MEDS: FAMOTIDINE 20 MG TAB GTB SCH ×2 (08:47→20:40)
[2018-10-21] MEDS: FERROUS SULFATE 60 MG/ML 5ML CUP GTB SCH ×2 (08:47→20:40)
[2018-10-21] MEDS: ENOXAPARIN 40 MG/0.4 ML SYG SC SCH (08:50)
[2018-10-21] MEDS: PHENOBARBITAL 32.4 MG TAB GTB SCH ×2 (09:06→20:41)
[2018-10-21] MEDS: ALBUTEROL/IPRATROPIUM (NEB) 3 ML AMP HHN SCH ×4 (10:16→21:04)
--- NOTE | 2018-10-21 12:28 | PN ---
Date/Time of Note Date/Time of Note DATE: 10/21/18 TIME: 12:26 Assessment/Plan VTE Prophylaxis Risk score (from Ns)>0 risk: 4 SCD applied (from [facility] [place]): No SCD contraindicated: low risk/ambulating Pharmacological prophylaxis: NA/contraindicated Pharm contraindication: low risk/ambulating Lines/Catheters IV C[facility]ter Type ([facility] Mid Line Urinary Cath still in place: No Assessment/Plan Hospital Course ASSESSMENT AND PLAN: This is a 28-year-old male who presented with: 1. Fever, shortness of breath, cough, likely secondary to pneumonia and left lower lobe infiltrate.cx+GNR+Ecoli 2. Mild hypernatremia.resolved 3. Cerebral palsy, bedbound. 4. History of asthma. 5. History of decubitus ulcer of the buttocks. 6. Epilepsy.? seizure episode however not noted by nursing staff> + 7. Dysphagia with a G-tube. 8. Spastic quadriplegia. 9. Protein energy malnutrition. Plan -Monitor for fevers - cw cefipime - [facility] with home health AND PO ABX - cw nebs - GI/DVT prophylaxsis - cw g tube feeding - cw lamictal/ phenobarb/topamax> neuro to adjust phenobarb levels - monitor for seizures - ativan prn Family refusing SNIF Result Diagram: 10/18/18 0540 10/18/18 0540 Subjective 24 Hr Interval Summary Free Text/Dictation low grade fever yesterday Exam/Review of Systems Vital Signs Vitals Vital Signs Date Temp Pulse Resp B/P (MAP) Pulse Ox O2 O2 Flow FiO2 Time Delivery Rate 10/21/18 97.6 57 15 93/55 (68) 98 Room Air 07:45 10/20/18 21 21:32 Intake and Output 10/20/18 10/20/18 10/21/18 1515:00 23:00 07:00 IntakeIntake Total 50 ml 890 ml 640 ml BalanceBalance 50 ml 890 ml 640 ml Exam Respiratory: diminished breath sounds, curled up in bed Cardiovascular: regular rate and rhythm Gastrointestinal: soft Musculoskeletal: nl extremities to inspection Extremities: normal pulses contractures G tube bed bound +decub Medications Medications Current Medications Acetaminophen (Tylenol Liquid) 160 mg Q4H PRN GTB MILD PAIN(1-3) OR TEMP>38C; Start 1/8/19 at 03:30 Ascorbic Acid (Vitamin C) 1,000 mg DAILY GTB Last administered on 10/21/18 08:46; Admin Dose 1,000 MG; Start 10/15/18 at 09:00 Famotidine (Pepcid) 20 mg BID GTB Last administered on 10/21/18 08:47; Admin Dose 20 MG; Start 10/15/18 at 09:00 Ferrous Sulfate (Feosol Liquid Cup) 300 mg BID GTB Last administered on 10/21/18 08:47; Admin Dose 300 MG; Start 10/15/18 at 09:00 Ibuprofen (Motrin Liquid (Ped)) 100 mg Q6 GTB Last administered on 10/21/18 12:17; Admin Dose 100 MG; Start 10/15/18 at 06:00 Morphine Sulfate (Roxanol) 15 mg Q12 PRN GTB SEVERE PAIN LEVEL 7-10; Start 10/15/18 at 09:00 Ondansetron HCl (Zofran Odt) 4 mg Q6H PRN ODT NAUSEA AND/OR VOMITING Last administered on 10/18/18 18:26; Admin Dose 4 MG; Start 10/15/18 at 03:30 Phenobarbital (Luminal) 97.2 mg BID GTB Last administered on 10/21/18 09:06; Admin Dose 97.2 MG; Start 10/15/18 at 09:00 Polyethylene Glycol (Miralax) 17 gm DAILY GTB Last administered on 10/21/18 08:38; Admin Dose 17 GM; Start 10/15/18 at 09:00 Topiramate (Topamax) 75 mg BID GTB Last administered on 10/21/18 08:47; Admin Dose 75 MG; Start 10/15/18 at 09:00 Zinc Sulfate (Zinc Sulfate) 220 mg DAILY GTB Last administered on 10/21/18 08:46; Admin Dose 220 MG; Start 10/15/18 at 09:00 Albuterol/ Ipratropium (Duoneb) 3 ml Q6H RESP THERAPY PRN HHN SHORTNESS OF BREATH; Start 10/15/18 at 03:30 Lamotrigine (Lamictal) 100 mg BID GTB Last administered on 10/21/18 08:46; Admin Dose 100 MG; Start 10/15/18 at 09:00 Lamotrigine (Lamictal) 75 mg BID GTB Last administered on 10/21/18 08:46; Admin Dose 75 MG; Start 10/15/18 at 09:00 Albuterol/ Ipratropium (Duoneb) 3 ml Q4HWA RESP THERAPY HHN Last administered on 10/20/18 21:32; Admin Dose 3 ML; Start 10/15/18 at 17:00 Enoxaparin Sodium (Lovenox) 40 mg DAILY SC Last administered on 10/21/18 08:50; Admin Dose 40 MG; Start 10/15/18 at 16:30 Collagenase (Santyl) 1 applic BID TOP Last administered on 10/21/18 08:38; Admin Dose 1 APPLIC; Start 10/16/18 at 21:00 Cefepime HCl 50 ml @ 100 mls/hr Q12 IVPB Last administered on 10/21/18 08:46; Admin Dose 100 MLS/HR; Start 10/17/18 at 21:00 Lorazepam (Ativan) 1 mg Q6H PRN IV FOR SEIZURES; Start 10/18/18 at 11:00 NAVNEET REINOSO MD Oct 21, 2018 12:28
--- NOTE | 2018-10-21 14:27 | CONS ---
Date/Time of Note Date/Time of Note DATE: 10/21/18 TIME: 14:25 Assessment/Plan Assessment/Plan Hospital Course No acute changes looks comfortable no fevers no labs this morning Sputum culture grew E. coli Antimicrobials: Cefepime Chest x-ray on admission revealed possibility new patchy mid left upper lobe infiltrate Physical examination: This is a debilitated chronically ill-appearing young man who is noncommunicative and in no distress. Head atraumatic normocephalic sclera nonicteric. Neck is supple. Chest rise symmetrical, breath sounds diminished bases. Heart: S1-S2. Abdomen soft bowel sounds present. Extremities wasted contracture Assessment: 1. Pneumonia 2. Resolving sepsis 3. Severe debilitated state secondary to cerebral palsy 4. Functional quadriplegia Plan: Patient remains stable, on appropriate antibiotics, pending discharge, he can be switched to oral Bactrim as E. coli was susceptible to it Result Diagram: 10/18/18 0540 10/18/18 0540 Consultation Date/Type/Reason Admit Date/Time Oct 15, 2018 at 00:03 Initial Consult Date Type of Consult id Requesting Provider: NAVNEET REINOSO MD Exam/Review of Systems Vital Signs Vitals Vital Signs Date Temp Pulse Resp B/P (MAP) Pulse Ox O2 O2 Flow FiO2 Time Delivery Rate 10/21/18 77 18 99 21 13:02 10/21/18 97.6 93/55 (68) Room Air 07:45 Intake and Output 10/20/18 10/20/18 10/21/18 1515:00 23:00 07:00 IntakeIntake Total 50 ml 890 ml 640 ml BalanceBalance 50 ml 890 ml 640 ml Medications Medications Current Medications Acetaminophen (Tylenol Liquid) 160 mg Q4H PRN GTB MILD PAIN(1-3) OR TEMP>38C; Start 10/15/18 at 03:30 Ascorbic Acid (Vitamin C) 1,000 mg DAILY GTB Last administered on 10/21/18at 08:46; Admin Dose 1,000 MG; Start 10/15/18 at 09:00 Famotidine (Pepcid) 20 mg BID GTB Last administered on 10/21/18at 08:47; Admin Dose 20 MG; Start 10/15/18 at 09:00 Ferrous Sulfate (Feosol Liquid Cup) 300 mg BID GTB Last administered on 10/21/18 08:47; Admin Dose 300 MG; Start 10/15/18 at 09:00 Ibuprofen (Motrin Liquid (Ped)) 100 mg Q6 GTB Last administered on 10/21/18 12:17; Admin Dose 100 MG; Start 10/15/18 at 06:00 Morphine Sulfate (Roxanol) 15 mg Q12 PRN GTB SEVERE PAIN LEVEL 7-10; Start 10/15/18 at 09:00 Ondansetron HCl (Zofran Odt) 4 mg Q6H PRN ODT NAUSEA AND/OR VOMITING Last administered on 10/18/18 18:26; Admin Dose 4 MG; Start 10/15/18 at 03:30 Phenobarbital (Luminal) 97.2 mg BID GTB Last administered on 10/21/18 09:06; Admin Dose 97.2 MG; Start 10/15/18 at 09:00 Polyethylene Glycol (Miralax) 17 gm DAILY GTB Last administered on 10/21/18 08:38; Admin Dose 17 GM; Start 10/15/18 at 09:00 Topiramate (Topamax) 75 mg BID GTB Last administered on 10/21/18 08:47; Admin Dose 75 MG; Start 10/15/18 at 09:00 Zinc Sulfate (Zinc Sulfate) 220 mg DAILY GTB Last administered on 10/21/18 08:46; Admin Dose 220 MG; Start 10/15/18 at 09:00 Albuterol/ Ipratropium (Duoneb) 3 ml Q6H RESP THERAPY PRN HHN SHORTNESS OF BREATH; Start 10/15/18 at 03:30 Lamotrigine (Lamictal) 100 mg BID GTB Last administered on 10/21/18 08:46; Admin Dose 100 MG; Start 10/15/18 at 09:00 Lamotrigine (Lamictal) 75 mg BID GTB Last administered on 10/21/18 08:46; Admin Dose 75 MG; Start 10/15/18 at 09:00 Albuterol/ Ipratropium (Duoneb) 3 ml Q4HWA RESP THERAPY HHN Last administered on 10/21/18 13:02; Admin Dose 3 ML; Start 10/15/18 at 17:00 Enoxaparin Sodium (Lovenox) 40 mg DAILY SC Last administered on 10/21/18at 08:50; Admin Dose 40 MG; Start 10/15/18 at 16:30 Collagenase (Santyl) 1 applic BID TOP Last administered on 10/21/18at 08:38; Admin Dose 1 APPLIC; Start 10/16/18 at 21:00 Cefepime HCl 50 ml @ 100 mls/hr Q12 IVPB Last administered on 10/21/18at 08:46; Admin Dose 100 MLS/HR; Start 10/17/18 at 21:00 Lorazepam (Ativan) 1 mg Q6H PRN IV FOR SEIZURES; Start 10/18/18 at 11:00 MANUEL PARRA NP Oct 21, 2018 14:27
[2018-10-21 14:42] VITALS: BP 87/52; PULSE 76; RESP 15
--- NOTE | 2018-10-21 15:45 | CONS ---
Assessment/Plan Assessment/Plan Hospital Course A: 28 M c/ Hx of CP c/b epilepsy...and other comorbidities, who is admitted for evaluation and management of respiratory Sx.. Neurology is consulted for epilepsy management; specifically, is concern for a recent breakthrough seizure. Intercurrent infection could certainly be lowering his seizure threshold.. P: Continue Phb 97.2mg bid Continue Lamictal 175 mg bid Continue Topamax 75 mg bid Ativan iv prn prolonged seizure (> 5 min) or cluster (> 2 seizures in 24 hrs) Continued medical management per primary Will follow clinically Result Diagram: 10/18/1853910/18/1840 Consultation Date/Type/Reason Admit Date/Time Oct 15, 2018 at 00:03 Type of Consult Neurology Requesting Provider: NAVNEET REINOSO MD Date/Time of Note DATE: 10/21/18 TIME: 15:43 24 HR Interval Summary Free Text/Dictation Continues medsurg monitoring. No acute events or changes in pt condition reported. Family at bedside is without complaints at this time. Exam Vital Signs Vitals Vital Signs Date Temp Pulse Resp B/P (MAP) Pulse Ox O2 O2 Flow FiO2 Time Delivery Rate 10/21/18 98.2 76 15 87/52 (64) 98 Room Air 14:42 10/21/18 21 13:02 Intake and Output 10/20/18 10/20/18 10/21/18 1414:59 22:59 06:59 IntakeIntake Total 50 ml 890 ml 640 ml BalanceBalance 50 ml 890 ml 640 ml Exam PE: Gen Appearance: No Apparent Distress; dysmorphic Cardiovascular: Regular rate Abdomen: Soft Extremities: Dry NE: The patient was alert though nonverbal. Cranial nerve examination was limited by mental status. Pupils were equal and reactive to light. There was no afferent pupillary defect. Funduscopic examination was limited. Face was grossly symmetric, w/ present corneal and cough reflexes. Tone was increased some. Muscle bulk was diffusely diminished. I did not see fasciculations. The patient withdrew to noxious stimulation x 4. Coordination and gait testing was limited by mental status. Arm and leg reflexes were within normal limits and symmetric. Carrizales's sign was absent. Plantar responses were extensor. DEBO BROCK NP Oct 21, 2018 15:45 ASHLEY ARAGON Oct 22, 2018 06:51
[2018-10-21 20:00] VITALS: BP 106/53; PULSE 65; RESP 16
[2018-10-22] MEDS: IBUPROFEN LIQUID (PED) 20 MG/ML CUP GTB SCH ×3 (00:21→13:31)
[2018-10-22 02:00] VITALS: BP 117/61; PULSE 85; RESP 17
[2018-10-22 07:20] VITALS: BP 98/50; PULSE 88; RESP 16
[2018-10-22] MEDS: ALBUTEROL/IPRATROPIUM (NEB) 3 ML AMP HHN SCH ×2 (08:48→14:04)
[2018-10-22] MEDS: FERROUS SULFATE 60 MG/ML 5ML CUP GTB SCH (09:02)
[2018-10-22] MEDS: CEFEPIME 1GM/50 ML (PMX) 50 ML IVPB SCH (09:02)
[2018-10-22] MEDS: FAMOTIDINE 20 MG TAB GTB SCH (09:02)
[2018-10-22] MEDS: POLYETHYLENE GLYCOL 17 GM PACKET GTB SCH (09:02)
[2018-10-22] MEDS: PHENOBARBITAL 32.4 MG TAB GTB SCH (09:03)
[2018-10-22] MEDS: ASCORBIC ACID 500 MG TAB GTB SCH (09:03)
[2018-10-22] MEDS: LAMOTRIGINE 100 MG TAB GTB SCH (09:03)
[2018-10-22] MEDS: ZINC SULFATE 220 MG CAP GTB SCH (09:03)
[2018-10-22] MEDS: TOPIRAMATE 25 MG TAB GTB SCH (09:03)
[2018-10-22] MEDS: COLLAGENASE 5 GM (UD JAR) TOP SCH (09:04)
[2018-10-22] MEDS: LAMOTRIGINE 25 MG TAB GTB SCH (09:04)
[2018-10-22] MEDS: BALSAM PERU/CASTOR OIL 60 GM TUBE TOP SCH (09:05)
[2018-10-22] MEDS: ENOXAPARIN 40 MG/0.4 ML SYG SC SCH (09:14)
--- NOTE | 2018-10-22 12:25 | CONS ---
Assessment/Plan Assessment/Plan Hospital Course A: 28 M c/ Hx of CP c/b epilepsy...and other comorbidities, who is admitted for evaluation and management of respiratory Sx.. Neurology is consulted for epilepsy management; specifically, is concern for a recent breakthrough seizure. Intercurrent infection could certainly be lowering his seizure threshold.. P: Continue Phb 97.2mg bid Continue Lamictal 175 mg bid Continue Topamax 75 mg bid Ativan iv prn prolonged seizure (> 5 min) or cluster (> 2 seizures in 24 hrs) Continued medical management per primary Will follow clinically Result Diagram: 10/22/18 0838 10/22/18 0838 Results 24hrs Laboratory Tests Test 10/22/18 08:38 White Blood Count 5.4 Red Blood Count 4.11 L Hemoglobin 12.0 L Hematocrit 38.0 L Mean Corpuscular Volume 92.5 Mean Corpuscular Hemoglobin 29.2 Mean Corpuscular Hemoglobin Concent 31.6 L Red Cell Distribution Width 16.0 H Platelet Count 318 # Mean Platelet Volume 10.5 H Immature Granulocytes % 0.400 Neutrophils % 43.1 Lymphocytes % 42.5 Monocytes % 9.6 Eosinophils % 3.1 Basophils % 1.3 Nucleated Red Blood Cells % 0.0 Immature Granulocytes # 0.020 Neutrophils # 2.3 Lymphocytes # 2.3 Monocytes # 0.5 Eosinophils # 0.2 Basophils # 0.1 Nucleated Red Blood Cells # 0.0 Sodium Level 141 Potassium Level 4.5 Chloride Level 102 Carbon Dioxide Level 29 Anion Gap 10 Blood Urea Nitrogen 14 Creatinine 0.42 L Est Glomerular Filtrat Rate mL/min > 60 Glucose Level 88 Calcium Level 9.4 Phosphorus Level 4.0 Magnesium Level 2.0 Consultation Date/Type/Reason Admit Date/Time Oct 15, 2018 at 00:03 Type of Consult Neurology Requesting Provider: NAVNEET REINOSO MD Date/Time of Note DATE: 10/22/18 TIME: 12:25 24 HR Interval Summary Free Text/Dictation Continues medsurg monitoring. No acute events or changes in pt condition reported. Exam Vital Signs Vitals Vital Signs Date Temp Pulse Resp B/P (MAP) Pulse Ox O2 O2 Flow FiO2 Time Delivery Rate 10/22/18 80 17 96 21 08:49 10/22/18 97.7 98/50 (66) 07:20 10/22/18 Room Air 02:00 Intake and Output 10/21/18 10/21/18 10/22/18 1515:00 23:00 07:00 IntakeIntake Total 50 ml 790 ml BalanceBalance 50 ml 790 ml Exam PE: Gen Appearance: No Apparent Distress; dysmorphic Cardiovascular: Regular rate Abdomen: Soft Extremities: Dry NE: The patient was alert though nonverbal. Cranial nerve examination was limited by mental status. Pupils were equal and reactive to light. There was no afferent pupillary defect. Funduscopic examination was limited. Face was grossly symmetric, w/ present corneal and cough reflexes. Tone was increased some. Muscle bulk was diffusely diminished. I did not see fasciculations. The patient withdrew to noxious stimulation x 4. Coordination and gait testing was limited by mental status. Arm and leg reflexes were within normal limits and symmetric. Carrizales's sign was absent. Plantar responses were extensor. DEBO BROCK NP Oct 22, 2018 12:25
--- NOTE | 2018-10-22 13:31 | PDOCDIS ---
Discharge Instructions DIAGNOSIS Discharge Diagnosis pNEUMONIA CONDITION [id number] Patient Condition: [id number] Fair HOME CARE INSTRUCTIONS: [id number] Special Diet: Gilyl1c Tube feeding FOLLOW UP/APPOINTMENTS Follow-up Plan F/U PCP in1-2 weeks keep hob elevated return to ER if has sob/cp/cough/fevers NAVNEET REINOSO MD Oct 22, 2018 13:31
[2018-10-22] MEDS ORDERED: ALBU2.5V3 NEB (13:38)
[2018-10-22] MEDS ORDERED: SULF1TAB31 PO (13:38)
[2018-10-22 14:19] VITALS: BP 100/56; PULSE 82; RESP 16
--- NOTE | 2018-10-22 15:07 | DS ---
DATE OF ADMISSION: 10/15/2018 DATE OF DISCHARGE: 10/22/2018 This is transfer from [facility] due to pneumonia. HISTORY OF PRESENTING ILLNESS AND HOSPITAL COURSE: This is a 28-year-old male with a past medical hi story of mental retardation, asthma, aspiration pneumonia, cerebral palsy, epilepsy, dysphagia, quadr iplegia, protein energy malnutrition, who went to [facility]. He was brought in by the [facility] er for cough and shortness of breath for 1 to 2 days. The patient had chest x-ray that increased den sity in the left lower lobe. He was discharged home with antibiotics. However the patient when at h ome according to the mother, the fever and shortness of breath persisted. He was also having some di arrhea and was brought into the ED and he was sent in for insurance reasons. Their labs showed white count of 9.5. The patient was admitted to med/surg unit secondary to pneumonia. The patient was st arted on IV Levaquin. He was also started on breathing treatments round the clock. The patient had initial chest x-ray done that showed mild left lower lobe linear atelectasis. However over the perio d of time, the patient was requiring nebs round the clock. Respiratory cultures were sent that showe d E. coli that was sensitive to cefotaxime. Antibiotics were switched to IV cefepime. Flu was check ed. Influenza A and B were negative. The patient was seen by ID consultation and their recommendati ons were followed. The patient was also noted to have 1 seizure episode and was seen by neurology an d their recommendations are followed. The patient's condition was improving every day. Chest x-ray on 10/21/2018 showed no focal infiltrate, mild left lower lobe atelectasis. Per ID and neurology, th e patient is stable to be discharged. Case was discussed with the mother since the patient is bedbou nd; however, family refused SNF. They wanted to take him back home. FINAL DISCHARGE DIAGNOSES: 1. Fever, shortness of breath, cough secondary to pneumonia, left lower lobe infiltrate. Cultures a re positive for Escherichia coli. 2. Mild hypernatremia, resolved. 3. Cerebral palsy, bedbound. 4. History of asthma. 5. History of decubitus ulcer on the buttocks. 6. Epilepsy, 1 seizure episode. 7. Dysphagia status post G-tube. 8. Spastic quadriplegia. 9. Protein energy malnutrition. CONDITION ON DISCHARGE: stable. DISCHARGE MEDICATIONS: New medications were: 1. Bactrim-DS 1 tab p.o. b.i.d. for 5 days. 2. DuoNeb. Continue with home medications: 1. Acetaminophen. 2. Vitamin C. 3. Erythromycin 200 via G-tube q.i.d. 4. Pepcid 20 b.i.d. 5. Iron sulfate. 6. Ibuprofen. 7. Lactobacillus. 8. Lamictal 75 b.i.d. 9. Milk of Magnesia p.r.n. 10. MS Contin 15 q.12. 11. Multivitamins. 12. Prilosec 20. 13. Zofran. 14. Phenobarbital 97.2 b.i.d. 15. MiraLax. 16. Topamax 75 b.i.d. 17. Zinc sulfate 220 daily. DISCHARGE INSTRUCTIONS: The patient's family was instructed to return the patient to the ER if he hannah s fever, chest pain, shortness of breath. Dictated By: NAVNEET ORANTES/CHRIS Conf#: [id number] DID#: [id number] CC: WILIAM VAZQUEZ MD;*End*
--- NOTE | 2018-10-22 15:53 | CONS ---
Date/Time of Note Date/Time of Note DATE: 10/22/18 TIME: 15:52 Assessment/Plan Assessment/Plan Hospital Course No acute changes, no fevers, WBC today 5.4, no shift no bands BUN 14 creatinine 0.42 Chest x-ray from yesterday revealed no focal infiltrate. Mild left lower lobe linear atelectasis. Sputum culture grew E. coli Antimicrobials: Cefepime Chest x-ray on admission revealed possibility new patchy mid left upper lobe infiltrate Physical examination: This is a debilitated chronically ill-appearing young man who is noncommunicative and in no distress. Head atraumatic normocephalic sclera nonicteric. Neck is supple. Chest rise symmetrical, breath sounds diminished bases. Heart: S1-S2. Abdomen soft bowel sounds present. Extremities wasted contracture Assessment: 1. Pneumonia 2. Resolving sepsis 3. Severe debilitated state secondary to cerebral palsy 4. Functional quadriplegia Plan: Patient remains stable, pending discharge, he can be switched to oral Bactrim for 4 more days Result Diagram: 10/22/18 0838 10/22/18 0838 Results 24hrs Laboratory Tests Test 10/22/18 08:38 White Blood Count 5.4 Red Blood Count 4.11 L Hemoglobin 12.0 L Hematocrit 38.0 L Mean Corpuscular Volume 92.5 Mean Corpuscular Hemoglobin 29.2 Mean Corpuscular Hemoglobin Concent 31.6 L Red Cell Distribution Width 16.0 H Platelet Count 318 # Mean Platelet Volume 10.5 H Immature Granulocytes % 0.400 Neutrophils % 43.1 Lymphocytes % 42.5 Monocytes % 9.6 Eosinophils % 3.1 Basophils % 1.3 Nucleated Red Blood Cells % 0.0 Immature Granulocytes # 0.020 Neutrophils # 2.3 Lymphocytes # 2.3 Monocytes # 0.5 Eosinophils # 0.2 Basophils # 0.1 Nucleated Red Blood Cells # 0.0 Sodium Level 141 Potassium Level 4.5 Chloride Level 102 Carbon Dioxide Level 29 Anion Gap 10 Blood Urea Nitrogen 14 Creatinine 0.42 L Est Glomerular Filtrat Rate mL/min > 60 Glucose Level 88 Calcium Level 9.4 Phosphorus Level 4.0 Magnesium Level 2.0 Consultation Date/Type/Reason Admit Date/Time Oct 15, 2018 at 00:03 Initial Consult Date Type of Consult id Requesting Provider: NAVNEET REINOSO MD Exam/Review of Systems Vital Signs Vitals Vital Signs Date Temp Pulse Resp B/P (MAP) Pulse Ox O2 O2 Flow FiO2 Time Delivery Rate 10/22/18 98.0 82 16 100/56 99 14:19 (71) 10/22/18 21 14:05 10/22/18 Room Air 02:00 Intake and Output 10/21/18 10/21/18 10/22/18 1515:00 23:00 07:00 IntakeIntake Total 50 ml 790 ml BalanceBalance 50 ml 790 ml Medications Medications Current Medications Acetaminophen (Tylenol Liquid) 160 mg Q4H PRN GTB MILD PAIN(1-3) OR TEMP>38C; Start 10/15/18 at 03:30 Ascorbic Acid (Vitamin C) 1,000 mg DAILY GTB Last administered on 10/22/18at 09:03; Admin Dose 1,000 MG; Start 10/15/18 at 09:00 Famotidine (Pepcid) 20 mg BID GTB Last administered on 10/22/18 09:02; Admin Dose 20 MG; Start 10/15/18 at 09:00 Ferrous Sulfate (Feosol Liquid Cup) 300 mg BID GTB Last administered on 10/22/18 09:02; Admin Dose 300 MG; Start 10/15/18 at 09:00 Ibuprofen (Motrin Liquid (Ped)) 100 mg Q6 GTB Last administered on 10/22/18at 13:31; Admin Dose 100 MG; Start 10/15/18 at 06:00 Morphine Sulfate (Roxanol) 15 mg Q12 PRN GTB SEVERE PAIN LEVEL 7-10; Start 10/15/18 at 09:00 Ondansetron HCl (Zofran Odt) 4 mg Q6H PRN ODT NAUSEA AND/OR VOMITING Last administered on 10/18/18 18:26; Admin Dose 4 MG; Start 10/15/18 at 03:30 Phenobarbital (Luminal) 97.2 mg BID GTB Last administered on 10/22/18 09:03; Admin Dose 97.2 MG; Start 10/15/18 at 09:00 Polyethylene Glycol (Miralax) 17 gm DAILY GTB Last administered on 10/22/18 09:02; Admin Dose 17 GM; Start 10/15/18 at 09:00 Topiramate (Topamax) 75 mg BID GTB Last administered on 10/22/18 09:03; Admin Dose 75 MG; Start 10/15/18 at 09:00 Zinc Sulfate (Zinc Sulfate) 220 mg DAILY GTB Last administered on 10/22/18 09:03; Admin Dose 220 MG; Start 10/15/18 at 09:00 Albuterol/ Ipratropium (Duoneb) 3 ml Q6H RESP THERAPY PRN HHN SHORTNESS OF GINA ATH; Start 10/15/18 at 03:30 Lamotrigine (Lamictal) 100 mg BID GTB Last administered on 10/22/18 09:03; Admin Dose 100 MG; Start 10/15/18 at 09:00 Lamotrigine (Lamictal) 75 mg BID GTB Last administered on 10/22/18 09:04; Admin Dose 75 MG; Start 10/15/18 at 09:00 Albuterol/ Ipratropium (Duoneb) 3 ml Q4HWA RESP THERAPY HHN Last administered on 10/22/18 14:04; Admin Dose 3 ML; Start 10/15/18 at 17:00 Enoxaparin Sodium (Lovenox) 40 mg DAILY SC Last administered on 10/22/18 09:14; Admin Dose 40 MG; Start 10/15/18 at 16:30 Collagenase (Santyl) 1 applic BID TOP Last administered on 10/22/18 09:04; Admin Dose 1 APPLIC; Start 10/16/18 at 21:00 Cefepime HCl 50 ml @ 100 mls/hr Q12 IVPB Last administered on 10/22/18 09:02; Admin Dose 100 MLS/HR; Start 10/17/18 at 21:00 Lorazepam (Ativan) 1 mg Q6H PRN IV FOR SEIZURES; Start 10/18/18 at 11:00 MANUEL PARRA NP Oct 22, 2018 15:53
[2018-10-22 18:20] VITALS: BP 153/78; PULSE 94; RESP 18
== END 2018-10-22 16:35 | disposition home health service (06) | DRG 871 ==
LOC: 2NE 10-15 00:03
PROVIDERS: ADMIT Internal Medicine Nephrology; ATTEND Internal Medicine Nephrology
DX: A41.9 Sepsis, unspecified organism (principal); J18.9 Pneumonia, unspecified organism; R53.2 Functional quadriplegia; L89.153 Pressure ulcer of sacral region, stage 3; G80.0 Spastic quadriplegic cerebral palsy; E44.0 Moderate protein-calorie malnutrition; E87.0 Hyperosmolality and hypernatremia; F79 Unspecified intellectual disabilities; G40.909 Epilepsy, unspecified, not intractable, without status epilepticus; R13.10 Dysphagia, unspecified; Z93.1 Gastrostomy status; Z74.01 Bed confinement status
CPT/HCPCS: 71045; 80048; 80053; 80184; 81001; 81003; 83735; 84100; 85025; 87070; 87400; 89220; 90686; 94640; 94664; J0692; J1650; J1956; J7030; J7040